=== PATIENT | female | born 1995 | race Caucasian/White ===

== ENCOUNTER 2020-06-27 10:28 | Emergency (ER) | payer OTHER ==
--- OUTSIDE RECORDS SUMMARY | 2020-06-27 11:18 | XMS REPORT | Continuity of Care Document ---
:1995 Author Organization [facility] t Address [address] [place] [address] Care Team Providers Name Role Phone De Valdivia Attending Clinician Doctor Unassigned, Name Attending Clinician Unavailable Payers Payer Name Policy Type Policy Number Effective Date Expiration Date S ource Problems This patient has no known problems. Allergies, Adverse Reactions, Alerts Allergy Allergy Status Severity Reaction(s) Onset Inactive Treating Comm ents Source Name Type Date Date Clinician No Known DA Active U 2019- [facility] [place] FA Active NM [facility] oil 6[facility]17 [facility] [place] Medications This patient has no known medications. Procedures This patient has no known procedures. Encounters Start End Encounter Admission Attending Care Care Encounter Source Date/Time Date/Time Type Type Clinicians Facility Department ID 2019-12-12 2019-12-12 Letter TORITO Latif [id number] 00:00:00 00:00:00 (Out) Rita Kc WEALTH MANAGEMENT DIRECTOR [id number] REGIONAL [id number] MATERNAL [phone] & CHILD [address] [place] [address] 2019-11-05 2019-11-05 Orders Doctor JIMENEZ [id number] 00:00:00 00:00:00 Only Unassigned, AYLIN [id number] [facility] [place] [id number] 2019-11-02 2019-11-02 Telephone Salomon NVJOSE [id number] 00:00:00 00:00:00 Rita Kc WEALTH MANAGEMENT DIRECTOR [id number] [facility] [id number] MATERNAL [phone] & CHILD [address] [place] [address] Results Test Description Test Time Test Comments Results Result [facility] e Comments FALLOPIAN 2020-06-24 TUBE,STERILIZATION 16:03:00 --------RUN DATE: 06/24/20 [facility] PAGE 1 RUN TIME: 1731 Specimen Inquiry RUN USER: INTERFACE --------PATIENT: GALEN VIERA LOC: ClarePPUE U #: [id number] AGE/SX: 24/F ROOM: [facility] RE06/23/20REG DR: Heather Serrano MD : [birth year] BED: A DIS: STATUS: ADM IN TLOC: -------- SPEC #: [id number] RECD: 06/23/20 STATUS: LINCOLN ALTAMIRANO #: [id number] EDILBERTO: 06/23/20- SUBM DR: Heather Serrano MD ENTERED: 06/23/20 SP TYPE: BRENDEN RODRIGUEZ DR: ORDERED: LEVEL II SURGIC/2 CODES: [id number] - FALLOPIAN TUBE PROCEDURES: LEVEL II SURGIC (Incomplete) TISSUES: FALLOPIAN TUBE, NOS - BILATERAL FALLOPIAN TUBES CLINICAL HISTORY 24 year old, . 39.2 weeks, repeat section (kr) FINAL DIAGNOSIS Right fallopian tube, ligation: - completely transected unremarkable fallopian tube Left fallopian tube, ligation: - completely transected unremarkable fallopian tube CPT code(s): 45655 x2 [place] [employer] ssd/.wpd GROSS DESCRIPTION ANATOMIC SOURCE OF TISSUE (per Requisition): 1. Right fallopian tube 2. Left fallopian tube Each specimen is labeled with the patient's name and medical record number. Specimen #1 is designated "right fallopian tube" and consists of a 2 x 0.6 cm blair-pink tubular tissue. No fimbriae are identified. Sectioning reveals a pinpoint lumen. A dealer compliance representative section is submitted in A1. Specimen #2 is designated "left fallopian tube" and consists of a 1 x 0.6 cm blair-pink tubular tissue. No fimbriae are identified. Sectioning reveals a pinpoint lumen. A dealer compliance representative section is submitted in B1. daniel/shaun 06/23/20 CONTINUED ON NEXT PAGE --------RUN DATE: 06/24/20 [facility] PAGE 2 RUN TIME: 1730 Specimen Inquiry RUN USER: INTERFACE --------SPEC #: [id number] PATIENT: GALEN VIERA #[id number] (Continued) -------- Signed Heaven Swann MD 06/24/20 1603 -------- END OF REPORT CBC W/AUTO DIFF 2020-06-24 07:08:00 Test Item Value Reference Range Interpretation Comme nts WHITE BLOOD CELL (test code = WBC) 8.9 K/mm3 6.6-12.1 N RED BLOOD CELL (test code = RBC) 2.95 M/mm3 3.45-5.01 L HEMOGLOBIN (test code = HGB) 9.6 g/dL 10.7-13.9 L HEMATOCRIT (test code = HCT) 29.5 % 32.1-42.1 L MEAN CELL VOLUME (test code = MCV) 100 fL 84.1-94.8 H MEAN CELL HGB (test code = MCH) 32.5 pg 27-35 N MEAN CELL HGB CONCETRATION (test code = MCHC) 32.5 gm/dL 32.2-34. 1 N RED CELL DISTRIBUTION WIDTH (test code = RDW) 13.2 % 12.4-16. 5 N PLATELET COUNT (test code = PLT) 171 K/mm3 133-385 N MEAN PLATELET VOLUME (test code = MPV) 11.0 fl 9.1-12.7 N NEUTROPHIL % (test code = NT%) 77.8 % 56.5-79.4 N LYMPHOCYTE % (test code = LY%) 11.2 % 14.3-34.3 L MONOCYTE % (test code = MO%) 9.8 % 5.1-10.4 N EOSINOPHIL % (test code = EO%) 0.7 % 0.1-3.0 N BASOPHIL % (test code = BA%) 0.2 % 0.1-1.0 N NEUTROPHIL # (test code = NT#) 7.0 K/mm3 LYMPHOCYTE # (test code = LY#) 1.0 K/mm3 MONOCYTE # (test code = MO#) 0.9 K/mm3 EOSINOPHIL # (test code = EO#) 0.06 K/mm3 BASOPHIL # (test code = BA#) 0.0 K/mm3 RBC MORPHOLOGY REQUIRED (test code = RBCM) NORMAL NORMAL PLATELET MORPHOLOGY REQUIRED (test code = PLTMR) NORMAL DMITRY L COVID 19 Asymptomatic IH [id number] 15:19:00 Test Item Value Reference Range Interpretation Comments COVID 19 NEGATIVE NEGATIVE This test has b een Asymptomatic IH AG authorize d only for the (test code = detection ofpro teins from COVNONPUIAG) SARS-CoV-2, not for any other viruses orpathogens. N egative results should be treated as presumptive andconfirmed wi th a molecular assay , if necessary for patientmanageme nt. Negative result s do not rule out COVID- 19 andshould not b e used as the sole basis for treatment orpat ient management deci sions, including infec tion controldecision s. Negative result s should be considered i n thecontext of a patient's recent exposure s, history and thepresence of clinical signs and symptoms consis tent withCOVID-19. T his test has not been FD A cleared or approved; th e test hasbeen authori zed by FDA under an Emerge ncy Use Authorization(E UA) for use by laborato charles certified under the CLIA thatmeet the re quirements to perform mode rate, high or waivedcomple xity tests. This kristina t is authorized for use at thePoint of Car e (POC), i.e., in patien t care settingsoperati ng under a CLIA Certificat e of Waiver, Certifi monet ofCompliance, o r Certificate of Accreditation. This test is only authori zed for the duration of thedeclaration that circumstances e xist justifying theauthorizatio n of emergency use o f in vitro diagnostic test sfor detection and/o r diagnosis of CO VID-19 under Xpdseny27 4(b)(1) of the Act, 21 U.S .C. 360bbb-3(b)(1), unless theauthorizatio n is terminated or r evoked sooner. AG HEPATITIS B [id number] 14:55:00 Test Item Value Reference Range Interpretation Comments AG HEPATITIS B SURFACE (test code NONREACTIVE NONREACTIVE = HBSAG) IS CONSENT FORM SIGNED FOR HIV TESTING? YAB HEPATITIS C [id number] 14:55:00 Test Item Value Reference Range Interpretation Comments AB HEPATITIS C (test code = NONREACTIVE NONREACTIVE HCVAB) SIGNAL TO CUTOFF (test code = 0.06 <0.80 N CUTOFF) IS CONSENT FORM SIGNED FOR HIV TESTING? YAB [id number] 14:55:00 Test Item Value Reference Range Interpretation Comments AB TREPONEMA (test code = TREPAB) NONREACTIVE NONREACTIVE IS CONSENT FORM SIGNED FOR HIV TESTING? YAB HIV 1 14:55:00 Test Item Value Reference Range Interpretation Comments AB HIV 1 2 (test NONREACTIVE NONREACTIVE Done by Louis Mixon code = OCY80MF) 4th Gen HIV Ag/Ab Combo Screen IS CONSENT FORM SIGNED FOR HIV TESTING? YAG HEPATITIS B [id number] 14:21:00 Test Item Value Reference Range Interpretation Comments AG HEPATITIS B SURFACE (test code NONREACTIVE NONREACTIVE = HBSAG) IS CONSENT FORM SIGNED FOR HIV TESTING? YAB HEPATITIS C [id number] 14:21:00 Test Item Value Reference Range Interpretation Comments AB HEPATITIS C (test code = HCVAB) NONREACTIVE SIGNAL TO CUTOFF (test code = CUTOFF) <0.80 IS CONSENT FORM SIGNED FOR HIV TESTING? YAB [id number] 14:21:00 Test Item Value Reference Range Interpretation Comments AB TREPONEMA (test code = TREPAB) NONREACTIVE NONREACTIVE IS CONSENT FORM SIGNED FOR HIV TESTING? YAB HIV 1 14:21:00 Test Item Value Reference Range Interpretation Comments AB HIV 1 2 (test code = RSG21YH) NONREACTIVE IS CONSENT FORM SIGNED FOR HIV TESTING? YURINALYSIS W/O [id number] 13:43:00 Test Item Value Reference Range Interpretation Comments UA GLUCOSE DIPSTICK (test code = NEGATIVE NEGATIVE DGLUU) UA KETONE DIPSTICK (test code = NEGATIVE NEGATIVE KETU) UA PROTEIN DIPSTICK (test code = NEGATIVE NEGATIVE PROU) IS NURSE PERFORMING TEST? NCBC W/AUTO [id number] 13:41:00 Test Item Value Reference Range Interpretation Comments WHITE BLOOD CELL (test code = WBC) 7.8 K/mm3 6.6-12.1 N RED BLOOD CELL (test code = RBC) 3.32 M/mm3 3.45-5.01 L HEMOGLOBIN (test code = HGB) 10.7 g/dL 10.7-13.9 N HEMATOCRIT (test code = HCT) 32.5 % 32.1-42.1 N MEAN CELL VOLUME (test code = MCV) 98 fL 84.1-94.8 H MEAN CELL HGB (test code = MCH) 32.2 pg 27-35 N MEAN CELL HGB CONCETRATION (test 32.9 gm/dL 32.2-34.1 N code = MCHC) RED CELL DISTRIBUTION WIDTH (test 12.8 % 12.4-16.5 N code = RDW) PLATELET COUNT (test code = PLT) 200 K/mm3 133-385 N MEAN PLATELET VOLUME (test code = 10.7 fl 9.1-12.7 N MPV) NEUTROPHIL % (test code = NT%) 70.5 % 56.5-79.4 N LYMPHOCYTE % (test code = LY%) 17.2 % 14.3-34.3 N MONOCYTE % (test code = MO%) 11.0 % 5.1-10.4 H EOSINOPHIL % (test code = EO%) 0.6 % 0.1-3.0 N BASOPHIL % (test code = BA%) 0.3 % 0.1-1.0 N NEUTROPHIL # (test code = NT#) 5.5 K/mm3 LYMPHOCYTE # (test code = LY#) 1.4 K/mm3 MONOCYTE # (test code = MO#) 0.9 K/mm3 EOSINOPHIL # (test code = EO#) 0.05 K/mm3 BASOPHIL # (test code = BA#) 0.0 K/mm3 RBC MORPHOLOGY REQUIRED (test code NORMAL NORMAL = RBCM) PLATELET MORPHOLOGY REQUIRED (test NORMAL NORMAL code = PLTMR) - US FET BIO PH NH W/O [id number] 23:41:00 Patient Name: GALEN VIERA Unit No: [id number] EXAMS: CPT CODE: [id number] US FET BIO PH NH W/O NST 38947 Limited obstetrical ultrasound dated 06/08/2020. HISTORY: 37 week . Decreased movement. A limited transabdominal obstetrical ultrasound was performed reveals presence of a single intrauterine in cephalic position. cardiac activity is documented with a heart rate of 144 bpm. The placenta is posteriorly positioned and demonstrates grade 2 echotexture. There is no evidence of placenta previa. Amniotic fluid volume appears within normal limits with a measured ESTELLA of 12.7. The cervix appears closed with a measured cervical length of 3.7 cm. measurements were not obtained. A anatomic survey was not performed. The fetus meets the biophysical profile criteria for breathing movement, gross body movement, tone and amniotic fluid volume giving a biophysical profile score of 8/8. IMPRESSION: 1. Single living intrauterine in cephalic position. 2. biophysical profile score of 8/8. SL: 131 at 2341 Reported and signed by: Gilberto Chen MD CC: Kayy Martin MD Technologist: TOR SRIVASTAVA RDMS, RVT Probe: Trnscrbd D/ (2601) t.DMM Orig Print D/T: S: 06/08/2020 (9385) [facility] NAME: GALEN VIERA Radiology Department PHYS: Kayy Hudson MD [address] : 1995 AGE: 24 SEX: F [place] [address] LOC: ClareDARIA PHONE #: [phone] EXAM DATE: 06/08/2020 STATUS: REG ER FAX #: [phone] RAD NO: Page 1 Signed Report Patient Name: GALEN VIERA Unit No: [id number] EXAMS: CPT CODE: [id number] US FET BIO PH NH W/O NST 07251 <Continued> [facility] NAME: GALEN VIERA Radiology Department PHYS: Kayy Hudson MD [address] : 1995 AGE: 24 SEX: F [place] [address] LOC: ClareDARIA PHONE #: [phone] EXAM DATE: 06/08/2020 STATUS: REG ER FAX #: [phone] RAD NO: Page 2 Signed Report- US FLW [id number] 15:32:00 Patient Name: GALEN VIERA Unit No: [id number] EXAMS: [place]: [id number] [place] [address] [facility] [address] [place], [place] [address] OBSTETRICAL ULTRASOUND REPORT Pat. Name: GALEN VIERA Pat. No: [id number] Study Date: 04/24/2020 2:22pm , Age: 8 1995, 24 Pregnancies: 5, Para 3 LMP: 09/22/2019 GA by LMP: 30w5d GA by 1st: 30w5d GA by US: 29w3d GA Selected: 30w5d (LMP) LAINEY: 06/28/2020 Referring MD: HEATHER SERRANO Operations Manager/Coordinator: Candi Barfield RDMS CPT4: USPREGFU MEASUREMENTS AGE GROWTH EVALUATION Measurement GA Range Srce %for GA Ratios ----- ---- ------- BPD 7.4 cm 30w0d (44c4y-28e1u) Hadl BPD 27% FL/BPD 0.77 (0.71 - 0.87) HC 27.5 cm 29w5d (71b2h-58c9e) Hadl HC 30% FL/AC 0.23 (0.20 - 0.24) APD 7.4 cm APD HC/AC 1.09 (0.97 - 1.16) TAD 8.6 cm TAD CI 0.79 (0.70 - 0.86) AC 25.2 cm 29w3d (25c9m-88a3b) Hadl AC 23% FL 5.7 cm 29w4d (31d0y-88b3s) Hadl FL 26% HL 5.0 cm 29w2d (95b5l-72p7c) [place] HL 26% GAfor sonogram 29w3d (77f3s-62k0u) Weight Estimate: based on (BPD,HC,AC,FL) Hadlock Weight: 1430 gm (0467-8668) Hadlo : 3lbs, 2oz Normal: 1579 gm (5345-9070) Brenn Wt%37% for 30.7 wks Cervical Length: 4.1 cm Heart Rate: 135 bpm Amniotic Fluid Index: 15.4cm (08.9-23.7) Q1: 4.4cm Q2: 4.3cm Q3: 3.2cm Q4: 3.5cm CLINICAL SUMMARY Type of Gestation: Toscano Intrauterine in vertex presentation. size is appropriate for gestational age. growth: Consistent with normal growth motion and organs seen: heart motion seen body and limb movements observed tone noted Placental location: Posterior Placental maturity : Grade 1 There is no evidence of placenta previa. Amniotic fluid volume is normal. [facility] NAME: GALEN VIERA Radiology Department PHYS: Heather Loyd MD [address] : 1995 AGE: 24 SEX: F [place], [place] [address] LOC: Andrea.RAD PHONE #: [phone] EXAM DATE: 04/24/2020 STATUS: REG CLI FAX #: [phone] RAD NO: Page 1 Signed Report (CONTINUED) Patient Name: GALEN VIERA Unit No: [id number] EXAMS: CPT CODE: [id number] [place] [address] <Continued> Uterus and adnexa: No significant abnormality is seen. Thank you for allowing us to participate in the care of this patient. Pa Capone M.D. Electronic Signature 04/24/2020 03:32pm at 1532 Reported and signed by: Pa Capone MD CC: Technologist: Candi Barfield RDMS Probe: Trnscrbd D/ (1532) LisaS Orig Print D/T: S: 04/24/2020 (1532) [facility] NAME: GALEN VIERA Radiology Department PHYS: Heather Loyd MD [address] : 1995 AGE: 24 SEX: [place] [address] LOC: ClareRAD PHONE #: [phone] EXAM DATE: 04/24/2020 STATUS: REG CLI FAX #: [phone] RAD NO: Page 2 Signed Report Patient Name: GALEN VIERA Unit No: [id number] EXAMS: CPT CODE: [id number] [place] [address] <Continued> [facility] NAME: GALEN VIERA Radiology Department PHYS: Heather Loyd MD [address] : 1995 AGE: 24 SEX: [place] [address] LOC: ClareRAD PHONE #: [phone] EXAM DATE: 04/24/2020 STATUS: REG CLI FAX #: [phone] RAD NO: Page 3 Signed Report- US PREG AFTER [id number] 14:10:00 Patient Name: GALEN VIERA Unit No: [id number] EXAMS: CPT CODE: [id number] US PREG AFTER TRI [address] [facility] [address] [place], [place] [address] OBSTETRICAL ULTRASOUND REPORT Pat. Name: GALEN VIERA Pat. No: [id number] Study Date: 02/14/2020 12:59pm , Age: 8 1995, 24 Pregnancies: 5, Para 3 LMP: 09/22/2019 GA by LMP: 20w5d GA by US: 20w0d GA Selected: 20w5d (From Known E) LAINEY: 06/28/2020 Referring MD: HEATHER SERRANO Operations Manager/Coordinator: Amy Valdivia RDMS CPT4: [id number] Admitting MD: HEATHER SERRANO Hist/Ind: ANATOMY SCAN 1 MEASUREMENTS AGE GROWTH EVALUATION Measurement GA Range Srce %for GA Ratios ----- ---- ------- BPD 4.4 cm 19w2d (00c0g-54r2r) Hadl BPD <05 FL/BPD 0.79 HC 17.0 cm 19w4d (50d9j-94l7q) Hadl HC 16% FL/AC 0.23 APD 5.1 cm APD HC/AC 1.11 (1.06 - 1.24) TAD 4.6 cm TAD CI 0.75 (0.70 - 0.86) AC 15.3 cm 20w1d (18w1d- 22w1d) Hadl AC 38% FL 3.5 cm 20w5d (90l1r-10f8m) Hadl FL 49% HL 3.2 cm 20w5d (75w7c-46w3u) [place] HL 50% GA for sonogram 20w0d (64w4r-40z8b) Weight Estimate: based on (BPD,HC,AC,FL) [place]lock Weight: 362 gm (309-415) [place]lock : 0lbs, 12oz Cervical Length: 4.6 cm Heart Rate: 136 bpm MATERNAL ANATOMY Ovaries LxHxW (cm) Right 2.7 x 1.7 x 1.9 Vol: 4.6cc ------- Ovarian Cysts LxHxW (cm) R1: 2.0 x1.1 x 1.5 CLINICAL SUMMARY Type of Gestation: Toscano Intrauterine in variable presentation. size is appropriate for gestationalage. motion and organs seen: heart motion seen Four chamber heart observed Left ventricular outflow tract (LVOT) seen [facility] Rad[facility] Department PHYS: Heather Loyd MD [address] : 1995 AGE: 24 SEX: [place] [address] LOC: ClareBINA PHONE #: [phone] EXAM DATE: 02/14/2020 STATUS: REG CLI FAX #: [phone] RAD NO: Page 1 Signed Report (CONTINUED) Patient Name: GALEN VIERA Unit No: [id number] EXAMS: CPT CODE: [id number] US PREG AFTER 1ST TRI 06696 <Continued> Right ventricular outflow tract (RVOT) seen Regular cardiac rhythm observed Normal intracranial anatomy seen Umbilical cord insertion in fetus seen stomach, Renal Fossa, Bladder and Spine seen Three vessel umbilical cord noted abnormalities observed: None seen at this exam Placental location: Posterior Placental maturity : Grade 1 There is no evidence of placenta previa. Amniotic fluid volume is normal. Uterus and adnexa: No significant abnormality is seen. Farheen Jarrett M.D. Electronic Signature 02/14/2020 02:10pm at 1410 Reported and signed by: Farheen Jarrett MD CC: Haether Serrano MD Technologist: Amy Valdivia RDMS Probe: Trnscrbd D/ (1410) t.SDR.NMG Orig Print D/T: S: 02/14/2020 (1410) [facility] NAME: GALEN VIERA Radiology Department PHYS: Heather Loyd MD [address] : 1995 AGE: 24 SEX: [place] [address] LOC: Andrea.RAD PHONE #: [phone] EXAM DATE: 02/14/2020 STATUS: REG CLI FAX #: [phone] RAD NO: Page 2 Signed Report Patient Name: GALEN VIERA Unit No: [id number] EXAMS: CPT CODE: [id number] US PREG AFTER 1ST TRI 84412 <Continued> [facility] NAME: AYLINGALEN Radiology Department PHYS:Heatehr Loyd MD [address] : 1995 AGE: 24 SEX: [place] [address] LOC: ClareRAD PHONE #: [phone] EXAM DATE: 02/14/2020 STATUS: REG CLI FAX #: [phone] RAD NO: Page 3 Signed Report
--- NOTE | 2020-06-27 12:24 | RAD REPORT ---
EXAM DESCRIPTION: Tammy Single View06/27/2020 12:11 pm CLINICAL HISTORY: Shortness of breath COMPARISON: none FINDINGS: The lungs appear clear of acute infiltrate. The heart is normal size IMPRESSION: No acute abnormalities displayed
[2020-06-27 12:25] LABS: Absolute Lymphocytes (CBC) 1.3 K/uL (0.7-4.9); Basophils % 0.4 % (0-1.3); Hematocrit 29.8 % (36.0-45.0); Lymphocytes % 16.7 % (15.3-44.8); MPV 8.7 fL (7.6-11.3); RBC Red Blood Cell Count 3.14 M/uL (3.86-4.86)
[2020-06-27 12:26] LABS: Protime INR 0.93
[2020-06-27 12:41] LABS: ALT/SGPT 57 U/L (12-78); AST/SGOT 48 U/L (15-37); Albumin 2.6 g/dL (3.4-5.0); Alkaline Phosphatase 114 U/L (45-117); BUN Blood Urea Nitrogen 12 mg/dL (7-18); Bicarbonate 29 mmol/L (21-32); Bilirubin Direct < 0.1 mg/dL (0-0.2); Bilirubin Total 0.2 mg/dL (0.2-1.0); Glucose Level 85 mg/dL (74-106); Magnesium 1.7 mg/dL (1.8-2.4); NT PRO-BNP 507 pg/mL (<125); Potassium 3.4 mmol/L (3.5-5.1); Sodium Level 146 mmol/L (136-145); Troponin (Emerg Dept Use Only) < 0.02 ng/mL (0.0-0.045)
[2020-06-27] MEDS ORDERED: NA CHLORIDE 0.9% 1,000 ML ONE (13:12)
--- NOTE | 2020-06-27 14:12 | RAD REPORT ---
EXAM DESCRIPTION: US - Abdomen Exam Limited - 06/27/2020 2:00 pm CLINICAL HISTORY: ABD PAIN COMPARISON: Abdomen Exam Limited dated 09/23/2017 FINDINGS: The gallbladder demonstrates small polyps versus adherent stones. No pericholecystic fluid or gallbladder wall thickening. The common bile duct is normal measuring 3 mm. The liver demonstrates no findings of intrahepatic biliary dilatation. Trace free fluid. IMPRESSION: Small gallbladder polyps versus adherent stones. No evidence of acute cholecystitis.
--- NOTE | 2020-06-27 14:17 | RAD REPORT ---
EXAM DESCRIPTION: CT - Chest For Pe Angio - 06/27/2020 2:10 pm CLINICAL HISTORY: Chest pain. Chest pain;Dyspnea COMPARISON: No comparisons TECHNIQUE: CT angiogram of the pulmonary arteries was performed with MIP. All CT scans are performed using dose optimization technique as appropriate and may include automated exposure control or mA/KV adjustment according to patient size. FINDINGS: No evidence of pulmonary thromboembolism. No acute aortic finding demonstrated. The lungs are clear. Small bilateral pleural effusions. No concerning bony finding. IMPRESSION: No evidence of pulmonary thromboembolism. Small bilateral pleural effusions.
--- NOTE | 2020-06-27 14:36 | EDPHYS ---
Physician Documentation [facility] Name: Antelmo Townsend Age: 24 yrs Sex: Female : 1995 Arrival Date: 06/27/2020 Time: 10:32 Bed 15 Private MD: ED Physician Ge Walker HPI: 06/27 14:34 This 24 yrs old Female presents to ER via Ambulatory with complaints of kb Breathing Difficulty, Headache, High Blood Sugar. 14:34 The patient has shortness of breath at rest. Onset: The symptoms/episode began/occurred kb yesterday. Duration: The symptoms are continuous. The patient's shortness of breath is aggravated by supine position, is alleviated by nothing. Associated signs and symptoms: Pertinent positives: chest pain, Pertinent negatives: non-productive cough, productive cough, diaphoresis, dizziness, fever, hemoptysis, loss of consciousness, nausea, numbness in extremities, visual changes, vomiting. Severity of symptoms: At their worst the symptoms were moderate in the emergency department the symptoms are unchanged. The patient has not experienced similar symptoms in the past. The patient has been recently seen by a physician: on Tuesday, discharged from [facility] yesterday. 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 - Social history:: Smoking status: Patient denies any tobacco usage or history of. ROS: 14:30 Constitutional: Negative for fever, chills, and weight loss, Back: Negative for injury kb and pain, MS/Extremity: Negative for injury and deformity, Skin: Negative for injury, rash, and discoloration, Neuro: Negative for headache, weakness, numbness, tingling, and seizure. 14:30 Cardiovascular: Positive for chest pain, Negative for edema, orthopnea, palpitations, paroxysmal nocturnal dyspnea. 14:30 Respiratory: Positive for orthopnea, shortness of breath, Negative for cough, dyspnea on exertion, hemoptysis, pleurisy, sputum production, wheezing. Exam: 12:27 Constitutional: This is a well developed, well nourished patient who is awake, alert, kb and in no acute distress. Head/Face: Normocephalic, atraumatic. Chest/axilla: Normal chest wall appearance and motion. Nontender with no deformity. No lesions are appreciated. Cardiovascular: Regular rate and rhythm with a normal S1 and S2. No gallops, murmurs, or rubs. Normal PMI, no JVD. No pulse deficits. Respiratory: Lungs have equal breath sounds bilaterally, clear to auscultation and percussion. No rales, rhonchi or wheezes noted. No increased work of breathing, no retractions or nasal flaring. Abdomen/GI: Soft, non-tender, with normal bowel sounds. No distension or tympany. No guarding or rebound. No evidence of tenderness throughout. Skin: Warm, dry with normal turgor. Normal color with no rashes, no lesions, and no evidence of cellulitis. MS/ Extremity: Pulses equal, no cyanosis. Neurovascular intact. Full, normal range of motion. Neuro: Awake and alert, GCS 15, oriented to person, place, time, and situation. Cranial nerves II-XII grossly intact. Motor strength 5/5 in all extremities. Sensory grossly intact. Cerebellar exam normal. Normal gait. 12:27 ECG was reviewed by the Attending Physician. Vital Signs: 11:05 BP 127 / 87; Pulse 67; Resp 14; Temp 99.4(TE); Pulse Ox 100% on R/A; Height 5 ft. 3 in. ss (160.02 cm); 13:03 BP 146 / 82; Pulse 56; Resp 16; Pulse Ox 99% on R/A; iw MDM: 11:10 Patient medically screened. kb 13:35 ED course: Pt began having pain to epigastric area and RUQ. US ordered. kb 14:33 Data reviewed: vital signs, nurses notes. Data interpreted: Pulse oximetry: on room air kb is 99 %. Interpretation: normal. Counseling: I had a detailed discussion with the patient and/or guardian regarding: the historical points, exam findings, and any diagnostic results supporting the discharge/admit diagnosis, lab results, radiology results, the need for outpatient follow up, a family practitioner, to return to the emergency department if symptoms worsen or persist or if there are any questions or concerns that arise at home. 06/27 11:11 Order name: Basic Metabolic Panel; Complete Time: 12:45 kb 06/27 11:11 Order name: CBC with Diff; Complete Time: 12:35 kb 06/27 11:11 Order name: LFT's; Complete Time: 12:45 kb 06/27 11:11 Order name: Magnesium; Complete Time: 12:45 kb 06/27 11:11 Order name: NT PRO-BNP; Complete Time: 12:45 kb 06/27 11:11 Order name: PT-INR; Complete Time: 13:21 kb 06/27 11:11 Order name: Troponin (emerg Dept Use Only); Complete Time: 12:45 kb 06/27 11:11 Order name: XRAY Chest (1 view); Complete Time: 12:26 kb 06/27 12:58 Order name: D-Dimer; Complete Time: 13:21 EDMS 06/27 13:20 Order name: CT Chest For PE Angio; Complete Time: 14:27 kb 06/27 13:35 Order name: US Abdomen Limited; Complete Time: 14:15 kb 06/27 11:11 Order name: EKG; Complete Time: 11:12 kb 06/27 11:11 Order name: Cardiac monitoring; Complete Time: 12:13 kb 06/27 11:11 Order name: EKG - Nurse/Tech; Complete Time: 11:54 kb 06/27 11:11 Order name: IV Saline Lock; Complete Time: 12:13 kb 06/27 11:11 Order name: Labs collected and sent; Complete Time: 12:13 kb 06/27 11:11 Order name: O2 Per Protocol; Complete Time: 12:13 kb 06/27 11:11 Order name: O2 Sat Monitoring; Complete Time: 12:13 kb EC:27 Rate is 56 beats/min. Rhythm is regular. QRS [place] is Normal. IN interval is normal at kb 194 msec. QRS interval is normal at 78 msec. QT interval is normal at 406 msec. Administered Medications: 13:02 Drug: NS 0.9% 1000 ml Route: IV; Rate: 1000 ml; Site: right antecubital; iw 14:43 Drug: Ibuprofen 800 mg Route: PO; iw 14:44 Not Given (Patient Refused): morphine 4 mg IVP once; RASS on ADMIN: Combtv4, Very iw Agttd3, Agttd2, Rstlss1, AlertClm0, Drwsy-1, Lt Sdtn-2, Mod Sdtn-3, Dp Sdtn-4, UnArsble-5 14:44 Not Given (Patient Refused): Zofran (Ondansetron) 4 mg IVP once; over 2 minutes iw Disposition: 06/28 13:25 Co-signature as Attending Physician, Ge Walker MD I agree with the assessment and kdr plan of care. Disposition: 06/27/20 14:35 Discharged to Home. Impression: Dyspnea, Chest pain, unspecified. - Condition is Stable. - Discharge Instructions: Shortness of Breath, [id number], Nonspecific Chest Pain, [id number]. - Medication Reconciliation Form, Thank You Letter, Antibiotic Education, Prescription Opioid Use form. - Follow up: Emergency Department; When: As needed; Reason: Worsening of condition. Follow up: Private Physician; When: 2 - 3 days; Reason: Recheck today's complaints, Continuance of care, Re-evaluation by your physician. Signatures: Dispatcher [employer] EDWA Kary Cuadra, KATJA-C APPLICATIONS MANAGER-Ckb Ge Walker MD MD [facility] Yvonne Bond RN RN iw Smirch, Shelby, RN RN ss Corrections: (The following items were deleted from the chart) 06/27 14:34 14:30 Respiratory: Positive for dyspnea on exertion, shortness of breath, Negative for kb cough, hemoptysis, orthopnea, pleurisy, sputum production, wheezing, kb 15:09 14:35 06/27/2020 14:35 Discharged to Home. Impression: Dyspnea; Chest pain, iw unspecified. Condition is Stable. Forms are Medication Reconciliation Form, Thank You Letter, Antibiotic Education, Prescription Opioid Use. Follow up: Emergency Department; When: As needed; Reason: Worsening of condition. Follow up: Private Physician; When: 2 - 3 days; Reason: Recheck today's complaints, Continuance of care, Re-evaluation by your physician. kb
--- NOTE | 2020-06-27 14:36 | ER ---
Nurse's Notes [facility] Name: Antelmo Townsend Age: 24 yrs Sex: Female : 1995 Arrival Date: 06/27/2020 Time: 10:32 Bed 15 Private MD: Diagnosis: Dyspnea;Chest pain, unspecified Presentation: 06/27 11:05 Chief complaint: Patient states: Had a 3 days ago. Was discharged yesterday. ss Pt c/o "heavy heart beat and shortness of breath that is worse when laying down.". Coronavirus screen: shortness of breath. Ebola Screen: Patient denies exposure to infectious person. Patient denies travel to an Ebola-affected area in the 21 days before illness onset. Initial Sepsis Screen: Does the patient meet any 2 criteria? No. Patient's initial sepsis screen is negative. Does the patient have a suspected source of infection? No. Patient's initial sepsis screen is negative. Risk Assessment: Do you want to hurt yourself or someone else? Patient reports no desire to harm self or others. Onset of symptoms was June 26, 2020. 11:05 Method Of Arrival: Ambulatory ss 11:05 Acuity: MARK 3 ss Triage Assessment: 13:05 Respiratory: the patient has mild shortness of breath. iw 13:05 Respiratory: Reports pain with respiration Onset: The symptoms/episode began/occurred. iw 15:09 General: Appears in no apparent distress. Behavior is calm. 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 - Social history:: Smoking status: Patient denies any tobacco usage or history of. Screenin:02 Abuse screen: Denies threats or abuse. Denies injuries from another. Nutritional iw screening: No deficits noted. Tuberculosis screening: No symptoms or risk factors identified. Fall Risk IV access (20 points). Assessment: 12:08 General: Appears in no apparent distress. Behavior is calm, cooperative. Pain: iw Complains of pain in chest. Neuro: Level of Consciousness is awake, alert, obeys commands, Oriented to person, place, time, situation, Moves all extremities. Full function. Cardiovascular: Patient's skin is warm and dry. Respiratory: Respiratory effort is even, unlabored. Derm: Skin is intact, is healthy with good turgor. Musculoskeletal: Range of motion: intact in all extremities. 13:02 Reassessment: Patient appears in no apparent distress at this time. Patient and/or iw family updated on plan of care and expected duration. Pain level reassessed. Patient is alert, oriented x 3, equal unlabored respirations, skin warm/dry/pink. 15:09 Respiratory: Airway is patent Respiratory effort is Breath sounds are clear bilaterally.iw 15:09 Cardiovascular: Rhythm is regular. iw Vital Signs: 11:05 BP 127 / 87; Pulse 67; Resp 14; Temp 99.4(TE); Pulse Ox 100% on R/A; Height 5 ft. 3 in. ss (160.02 cm); 13:03 BP 146 / 82; Pulse 56; Resp 16; Pulse Ox 99% on R/A; iw ED Course: 10:32 Patient arrived in ED. ag5 10:57 Ge Walker MD is Attending Physician. kdr 11:05 Kary Cuadra FNP-C is PHCP. kb 11:10 Triage completed. ss 11:11 Arm band placed on right wrist. ss 11:53 EKG done, by ED staff, reviewed by Kary RUBIO. 3 12:04 Yvonne Bond, RN is Primary Nurse. iw 12:08 Initial lab(s) drawn, by vt, sent to lab. Inserted saline lock: 20 gauge in right dh3 antecubital area, using aseptic technique. Blood collected. 12:12 XRAY Chest (1 view) In Process Unspecified. EDMS 13:05 Patient has correct armband on for positive identification. iw 14:01 US Abdomen Limited In Process Unspecified. EDMS 14:10 CT Chest For PE Angio In Process Unspecified. EDMS 15:08 No provider procedures requiring assistance completed. IV discontinued, intact, iw bleeding controlled, No redness/swelling at site. Pressure dressing applied. Administered Medications: 13:02 Drug: NS 0.9% 1000 ml Route: IV; Rate: 1000 ml; Site: right antecubital; iw 14:43 Drug: Ibuprofen 800 mg Route: PO; iw 14:44 Not Given (Patient Refused): morphine 4 mg IVP once; RASS on ADMIN: Combtv4, Very iw Agttd3, Agttd2, Rstlss1, AlertClm0, Drwsy-1, Lt Sdtn-2, Mod Sdtn-3, Dp Sdtn-4, UnArsble-5 14:44 Not Given (Patient Refused): Zofran (Ondansetron) 4 mg IVP once; over 2 minutes iw Outcome: 14:35 Discharge ordered by MD. cazares 15:08 Discharged to home ambulatory. iw 15:08 Condition: good 15:08 Discharge instructions given to patient, Instructed on discharge instructions, follow up and referral plans. Demonstrated understanding of instructions, follow-up care. 15:09 Patient left the ED. iw Signatures: Dispatcher [employer] EDMS Kary Cuadra, KATJA-C MDS COORDINATOR-CkGe Childers MD MD kdr Williams, Irene, RN RN Malena Carias RN RN Marii Charles formerly [facility] Dalia Gonzales [facility]
[2020-06-27] MEDS ORDERED: ONDANSETRON 4 MG/2 ML VIAL ONE (14:45)
[2020-06-27] MEDS ORDERED: MORPHINE 4 MG/ML SYR ONE (14:45)
[2020-06-27] MEDS ORDERED: IBUPROFEN 400 MG TAB ONE (14:52)
[2020-06-27 15:27] VITALS: TEMP 99.4
[2020-06-27 15:28] VITALS: BP 146/82; O2SAT 99
== END 2020-06-27 15:09 | disposition home or self-care (01) ==
LOC: ER 10:28
DX: R07.9 Chest pain, unspecified (principal)
CPT/HCPCS: 93005; 85025; 80048; 36415; 83735; 85610; 85379; 80076; 84484; 83880; 71275; 71045; 76705; 99284; Q9967; J7030; J2405

== ENCOUNTER 2022-05-16 01:34 | Emergency (ER) | payer OTHER ==
--- OUTSIDE RECORDS SUMMARY | 2022-05-16 01:37 | XMS REPORT | Continuity of Care Document ---
:1995 Author Organization [facility] t Address [address] [place] [address] Care Team Providers Name Role Phone Heather Serrano Attending Clinician Unavailable Jerald Mccollum Attending Clinician Unavailable Rita Valdivia Attending Clinician [phone] RITA LATIF Attending Clinician Unavailable Doctor Unassigned, [place] Attending Clinician Unavailable Heather Serrano Admitting Clinician Unavailable Payers Payer Name Policy Type Policy Number Effective Date Expiration Date S ource Problems Condition Condition Condition Status Onset Resolution Last Treating Co mments Source Name Details Category Date Date Treatment Clinician Date Yeast Yeast Disease Active 2020-0 Univers infection infection 2-21 ity of 00:00: [address] Supervisio Supervisio Disease Active 2020-0 U nivers n of n of 2-13 [place] [facility] Multiparit Multiparit Disease Active 2020-0 U nivers y y 2-13 ity of 00:00: [address] History of History of Disease Active 2020-0 Overview : Univers herpes herpes 2-13 Suppressi ity of genital[place] genitalis [place] [facility] Rubella Rubella Disease Active 2013-09 Univers non-immune non-immune 1-04 it y of status, status, 00:00: [place] antepartum antepartum 00 Me dical Branch History of History of Disease Active 2013-09 Overview : 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 examinatio examinatio Utility n n Generalize Generalize Disease Active U nivers d anxiety d anxiety 11-08 ity of disorder disorder 00:00: [place] 00 Medical Branch Allergies, Adverse Reactions, Alerts Allergy Allergy Status Severity Reaction(s) Onset Inactive Treating Comm ents Source Name Type Date Date Clinician No Known DA Active U [facility] 06-08 [facility] [place] No Known DA Active U [facility] 06-08 [facility] All[facility]ie 00:[facility]: [facility] [place] FA Active ND [facility] d oil 02-26 [facility] 00:[facility]: [facility] [place] FA Active ND MUNOZ NAUSEA [facility] d oil 02-26 [facility] 00:00: [facility] [place] NO KNOWN Drug Active Univers ALLERGIE Class ity of S [facility] Social History Social Habit Start Date Stop Date Quantity Comments Source ASSERTION 2019-10-06 [facility] 00:00:00 [facility] Alcohol intake 2019-10-25 2019-10-25 [facility] 00:00:00 00:00:00 [facility] Smoking Status Start Date Stop Date Source Never smoker [facility] Medications Ordered Filled Start Stop Current Ordering Indication Dosage Frequency Signature Comments Components Source Medication Medication Date Date Medication? Clinician (SIG) Name Name terconazole 2020- No [id number] 1{appli Insert 1 Univers 0.4 % 11-02 cator} Applicator ity o f vaginal 00:00: 05:59 into [place] cream 00 :00 vagina at Medical bedtime Branch for 3 days. terconazole 2020- No [id number] 1{appli Insert 1 Univers 0.4 % 11-02 cator} Applicator ity o f vaginal 00:00: 05:59 into [place] cream 00 :00 vagina at [facility] bedtime Branch for 3 days. 2013-09 Yes [id number] 1{tbl} Take 1 Tab Univers multivitami 0-07 by mouth ity of n ( [place] VITAMIN[place] 00 Medical tablet Branch 2013-09 Yes [id number] 1{tbl} Take 1 Tab Univers multivitami 0-07 by mouth ity of n ( [place] VIT[place]IN[place] 00 Medical tablet Branch 2013-09 Yes [id number] 1{tbl} Take 1 Tab Univers multivitami 0-07 by mouth ity of [place] VIT[place] 00 Medical tablet [place] 2013-09 Yes [id number] 1{tbl} Take 1 Tab Univers multivitami 0-07 by mouth ity of n ( [place] VIT[place]IN[place] 00 Medical tablet [place] 2013-09 Yes [id number] 1{tbl} Take 1 Tab Univers multivitami 0-07 by mouth ity of n ( [place] VIT[place] 00 Medical tablet Branch 2013-09 Yes [id number] 1{tbl} Take 1 Tab Univers multivitami 0-07 by mouth ity of n ( [place] VITAMIN[place] 00 Medical tablet [place] 2013-09 Yes [id number] 1{tbl} Take 1 Tab Univers multivitami 0-07 by mouth ity of n ( [place] VIT[place] 00 [facility] Immunizations Ordered Filled Immunization Date Status Comments [facility] e Immunization Name Name Tdap 2013-04-18 Completed University of 00:00:00 [facility] Tdap 2013-04-18 Completed University of 00:00:00 [facility] Tdap 2013-04-18 Completed University of 00:00:00 [facility] Tdap 2013-04-18 Completed University of 00:00:00 [facility] Tdap 2013-04-18 Completed University of 00:00:00 [facility] Tdap 2013-04-18 Completed University of 00:00:00 [facility] Tdap 2013-04-18 Completed University of 00:00:00 [facility] Varicella 2012-11-08 Completed University of (varivax)(chicken 00:00:00 [place] M edical pox) Branch Rubella 2012-11-08 Completed University of 00:00:00 [facility] Varicella 2012-11-08 Completed University of (varivax)(chicken 00:00:00 [place] M edical pox) Branch Rubella 2012-11-08 Completed University of 00:00:00 [facility] Varicella 2012-11-08 Completed University of (varivax)(chicken 00:00:00 [place] M edical pox) Branch Rubella 2012-11-08 Completed University of 00:00:00 [facility] Varicella 2012-11-08 Completed University of (varivax)(chicken 00:00:00 [place] M edical pox) Branch Rubella 2012-11-08 Completed University of 00:00:00 [facility] Varicella 2012-11-08 Completed University of (varivax)(chicken 00:00:00 [place] M edical pox) Branch Rubella 2012-11-08 Completed University of 00:00:00 [facility] Varicella 2012-11-08 Completed University of (varivax)(chicken 00:00:00 [place] M edical pox) Branch Rubella 2012-11-08 Completed University of 00:00:00 [facility] Varicella 2012-11-08 Completed University of (varivax)(chicken 00:00:00 [place] M edical pox) Branch Rubella 2012-11-08 Completed University of 00:00:00 [facility] Vital Signs Vital Name Observation Time Observation Value Comments Source Systolic blood 2019-10-25 21:31:00 103 mm[Hg] Univer sity of pressure [facility] Diastolic blood 2019-10-25 21:31:00 63 mm[Hg] Unive rsity of pressure [facility] Heart rate 2019-10-25 21:31:00 92 /min [facility] Body temperature 2019-10-25 21:31:00 37.33 Fifi [facility] Respiratory rate 2019-10-25 21:31:00 16 /min [facility] Body height 2019-10-25 21:31:00 160 cm [facility] Body weight 2019-10-25 21:31:00 52.674 kg [facility] BMI 2019-10-25 21:31:00 20.57 kg/m2 [facility] Procedures Procedure Date / Time Performing Clinician Source Performed [id number] 2020-06-23 [facility] [id number] 2020-06-23 00:00:00 [facility] AUTHORIZATION FOR 2019-11-05 06:01:00 Doctor Unassigned, No [facility] OF [facility] POCT URINALYSIS W/O 2019-10-25 21:40:00 Rita Latif Uni versity [facility] SPECIFIC GRAVITY [facility] POCT TEST 2019-10-25 21:33:00 Rita Latif Uni [facility] ASSIGNMENT OF BENEFITS 2019-10-25 20:39:24 Doctor Unassigned, No [facility] Encounters Start End Encounter Admission Attending Care Care Encounter Source Date/Time Date/Time Type Type Clinicians Facility Department ID 2020-06-23 Inpatient EL Serrano, [facility] LD [id number] [facility] 08:30:00 Heather [id number] [facility] [place] 2020-06-20 Inpatient Serrano, [facility] [id number] [facility] 08:30:00 Heather [facility] [place] 2020-06-08 Inpatient Serrano, [facility] DARIA [id number] [facility] 20:26:00 Heather [id number] [facility] [place] 2020-05-28 2020-05-28 Emergency EM Don-G [facility] DARIA [id number] [facility] 11:41:00 15:08:00 fred, [id number] [facility] [place] 2020-04-24 2020-04-24 Outpatient Serrano, [facility] RADI [id number] [facility] 14:00:00 14:00:00 Heather [id number] [facility] [place] 2020-02-14 2020-02-14 Outpatient Serrano, [facility] RADI [id number] [facility] 13:00:00 13:00:00 Heather [id number] [facility] [place] 2019-12-12 2019-12-12 Letter Salomon [facility] [id number] 00:00:00 00:00:00 (Out) 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 [id number] [facility] 09:45:00 09:45:00 RITA ity o f [facility] 2019-11-05 2019-11-05 Orders Doctor JIMENEZ [id number] 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 350.1.13.10 ity of REGIONAL 4.2.7.2.686 [place] as MATERNAL [id number] [facility] ical & CHILD [address] [place] [address] 2019-11-02 2019-11-02 [facility] [id number] 00:00:00 00:00:00 Rita C MIXER OPERATOR HELPER [employer] METAL 350.1.13.10 REGIONAL 4.2.7.2.686 MATERNAL [id number] & CHILD [address] 2019-10-25 2019-10-25 Initial Salomon [facility] [id number] Univers 14:59:01 16:20:39 Rita Kc MIXER OPERATOR HELPER HOT METAL 350.1.13.10 ity of Visit [facility] 42.7.2.686 [place] as MATERNAL [id number] Med ical & CHILD [address] [place] [address] 2019-10-25 2019-10-25 Outpatient R SALOMON [facility] [id number] [facility] 14:00:00 15:17:39 RITA long o f [facility] 2019-10-25 2019-10-25 Orders Doctor JIMENEZ [id number] Univers 00:00:00 00:00:00 Only Unassigned, AYLIN 350.1.13.10 ity of [place] [address]2.686 [place] as [phone] [address] Results Test Description Test Time Test Comments Results Result [facility] e Comments FALLOPIAN 2020-06-24 TUBE,STERILIZATION 16:03:00 --------RUN DATE: 06/24/20 [facility] PAGE 1 RUN TIME: 1731 Specimen Inquiry RUN USER: INTERFACE --------PATIENT: GALEN VIERA LOC: DEMARCUS U #: [id number] AGE/SX: 24/ ROOM: [facility] RE06/23/20REG DR: Heather Serrano MD : 93 BED: A DIS: STATUS: ADM IN TLOC: -------- SPEC #: [id number] RECD: 06/23/20 STATUS: LINCOLN ALTAMIRANO #: [id number] EDILBERTO: 06/23/20- SUBM DR: Heather Serrano MD ENTERED: 06/23/20 SP TYPE: FALLST MICHAEL DR: ORDERED: LEVEL II SURGIC/2 CODES: [id number] - FALLOPIAN TUBE PROCEDURES: LEVEL II SURGIC (Incomplete) TISSUES: FALLOPIAN TUBE, NOS - BILATERAL FALLOPIAN TUBES CLINICAL HISTORY 24 year old, . 39.2 weeks, repeat section (kr) FINAL DIAGNOSIS Right fallopian tube, ligation: - completely transected unremarkable fallopian tube Left fallopian tube, ligation: - completely transected unremarkable fallopian tube CPT code(s): 38519 x2 [facility]/.wpd GROSS DESCRIPTION ANATOMIC SOURCE OF TISSUE (per Requisition): 1. Right fallopian tube 2. Left fallopian tube Each specimen is labeled with the patient's name and medical record number. Specimen #1 is designated "right fallopian tube" and consists of a 2 x 0.6 cm blair-pink tubular tissue. No fimbriae are identified. Sectioning reveals a pinpoint lumen. A volunteer patient representative section is submitted in A1. Specimen #2 is designated "left fallopian tube" and consists of a 1 x 0.6 cm blair-pink tubular tissue. No fimbriae are identified. Sectioning reveals a pinpoint lumen. A volunteer patient representative section is submitted in B1. daniel/shaun 06/23/20 CONTINUED ON NEXT PAGE --------RUN DATE: 06/24/20 [facility] PAGE 2 RUN TIME: 0761 Specimen Inquiry RUN USER: INTERFACE --------SPEC #: [id number] PATIENT: GALEN VIERA #[id number] (Continued) -------- Signed Heaven Swann MD 06/24/20 [...] NORMAL DMITRY L COVID 19 Asymptomatic IH [id number] 15:19:00 Test Item Value Reference Range Interpretation Comments COVID 19 NEGATIVE NEGATIVE This test has b een Asymptomatic IH AG authorize d only for the (test code = detection ofpro teins from COVNONPUIAG) SARS-CoV-2, not for any other viruses orpathogens. Ne gative results should be treated as presumptive andconfirmed [...] ncy Use Authorization(E UA) for use by debi soto certified under the CLIA thatmeet the re [...] and/o r diagnosis of CO VID-19 under Nnhojsi49 4(b)(1) of the Act, 21 U.S .C. 360bbb-3(b)(1), unless theauthorizatio n is terminated or r evoked sooner. AG HEPATITIS B [id number] 14:55:00 Test Item Value Reference Range Interpretation Comments AG HEPATITIS B SURFACE (test code NONREACTIVE NONREACTIVE = HBSAG) IS CONSENT FORM SIGNED FOR HIV TESTING? YAB HEPATITIS C [id number] 14:55:00 Test Item Value Reference Range Interpretation Comments AB HEPATITIS C (test code = NONREACTIVE NONREACTIVE HCVAB) SIGNAL TO CUTOFF (test code = 0.06 <0.80 N CUTOFF) IS CONSENT FORM SIGNED FOR HIV TESTING? YAB [id number] 14:55:00 Test Item Value Reference Range Interpretation Comments AB TREPONEMA (test code = TREPAB) NONREACTIVE NONREACTIVE IS CONSENT FORM SIGNED FOR HIV TESTING? YAB HIV 1 14:55:00 Test Item Value Reference Range Interpretation Comments AB HIV 1 2 (test NONREACTIVE NONREACTIVE Done by [facility] code = [id number]) 4th Gen HIV Ag/Ab Combo Screen IS CONSENT FORM SIGNED FOR HIV TESTING? YAG HEPATITIS B [id number] 14:21:00 Test Item Value Reference Range Interpretation Comments AG HEPATITIS B SURFACE (test code NONREACTIVE NONREACTIVE = HBSAG) IS CONSENT FORM SIGNED FOR HIV TESTING? YAB HEPATITIS C [id number] 14:21:00 Test Item Value Reference Range Interpretation Comments AB HEPATITIS C (test code = HCVAB) NONREACTIVE SIGNAL TO CUTOFF (test code = CUTOFF) <0.80 IS CONSENT FORM SIGNED FOR HIV TESTING? YAB [id number] 14:21:00 Test Item Value Reference Range Interpretation Comments AB TREPONEMA (test code = TREPAB) NONREACTIVE NONREACTIVE IS CONSENT FORM SIGNED FOR HIV TESTING? YAB HIV 1 14:21:00 Test Item Value Reference Range Interpretation Comments AB HIV 1 2 (test code = QTQ98FV) NONREACTIVE IS CONSENT FORM SIGNED FOR HIV TESTING? YURINALYSIS W/O [id number] 13:43:00 Test Item Value Reference Range Interpretation Comments UA GLUCOSE DIPSTICK (test code = NEGATIVE NEGATIVE DGLUU) UA KETONE DIPSTICK (test code = NEGATIVE NEGATIVE KETU) UA PROTEIN DIPSTICK (test code = NEGATIVE NEGATIVE PROU) IS NURSE PERFORMING TEST? NCBC W/AUTO [id number] 13:41:00 Test Item Value Reference Range Interpretation [...] = PLTMR) - US FET BIO PH PA W/O [id number] 23:41:00 Patient Name: GALEN VIERA Unit No: [id number] EXAMS: CPT CODE: [id number] US FET BIO PH PA W/O NST 11709 Limited obstetrical ultrasound dated 06/08/2020. HISTORY: 37 week . Decreased movement. A limited transabdominal obstetrical ultrasound was performed reveals presence of a single intrauterine in cephalic position. cardiac activity is documented with a heart rate of 144 bpm. The placenta is posteriorly positioned and demonstrates grade 2 echotexture. There is no eviden ce of placenta previa. Amniotic fluid volume appears [...] MD CC: Kayy Martin MD Technologist: TOR SRIVASTAVA, MICAELA, RVT Probe: Trnscrbd D/ (2341) t.WILBERR.DMM Orig Print D/T: S: 06/08/2020 (5724) [facility] NAME: GALEN VIERA Radiology Department PHYS: Kayy Hudson MD [address] : 1995 AGE: 24 SEX: [place] [address] LOC: ClareDARIA PHONE #: [phone] EXAM DATE: 06/08/2020 STATUS: REG ER FAX #: [phone] RAD NO: Page 1 Signed Report Patient Name: GALEN VIERA Unit No: [id number] EXAMS: CPT CODE: [id number] FET BIO PH PA W/O NST 59076 (Continued) [facility] NAME: GALEN VIERA RadiologyDepartment PHYS: Kayy Hudson MD [address] : 1995 AGE: 24 SEX: [place] [address] LOC: ClareDARIA PHONE #: [phone] EXAM DATE: 06/08/2020 STATUS: REG ER FAX #: [phone] RAD NO: Page 2 Signed Report- US FLW [id number] 15:32:00 Patient Name: GALEN VIERA Unit No: [id number] EXAMS: CPT CODE: [id number] [place] [address] [address] [place], [place] [address] OBSTETRICAL ULTRASOUND REPORT Pat. Name: GALEN VIERA. No: [id number] Study Date: 04/24/2020 2:22pm , Age: 8 1995, 24 Pregnancies: 5, Para 3 LMP: 09/22/2019 GA by LMP: 30w5d GA by 1st: 30w5d GA by US: 29w3d GA Selected: 30w5d (LMP) LAINEY: 06/28/2020 Referring MD: HEATHER SERRANO Box Feeder: Candi Barfield RDMS CPT4: USPREGFU MEASUREMENTS AGE GROWTH EVALUATION MeasurementGA Range Srce %for GA Ratios ----- ---- ------- B PD 7.4 cm 30w0d (33b0f-40a7f) Hadl BPD 27% FL/BPD 0.77 (0.71 - 0.87) HC 27.5 cm 29w5d (21a3z-38g9i) Hadl HC 30% FL/AC 0.23 (0.20 - 0.24) APD 7.4 cm APD HC/AC 1.09 (0.97 - 1.16) TAD 8.6 cm TAD CI 0.79 (0.70 - 0.86) AC 25.2 cm 29w3d (93i7b-75b4x) Hadl AC 23% FL 5.7 cm 29w4d (10q3w-05m9f) Hadl FL 26% HL5.0 cm 29w2d (45d6z-28k6x) [place] HL 26% GA for sonogram 29w3d (49o4c-36t0l) Weight Estimate: based on (BPD,HC,AC,FL) Hadlock Weight: 1430 gm (6043-6389) Hadlo : 3lbs, 2oz Normal: 1579 gm (2024-2495) Brenn Wt% 37% for 30.7 wks Cervical Length: 4.1 cm Heart Rate: 135 bpm Amniotic Fluid Index: 15.4cm (08.9- 23.7) Q1: 4.4cm Q2: 4.3cm Q3: 3.2cm Q4: [...] previa. Amniotic fluid volume is normal. [facility] NAME: AYLIN,GALEN Radiology Department PHYS: Heather Loyd MD [address] : 1995 AGE: 24 SEX: F [place], [place] [address] LOC: F.RAD PHONE #: [phone] EXAM DATE: 04/24/2020STATUS: REG CLI FAX #: [phone] RAD NO: Page 1 Signed Report (CONTINUED) Patient Name: GALEN VIERA Unit No: [id number] EXAMS: CPT CODE: [id number] [place]W UP [address] (Continued) Uterus and adnexa: No significant abnormality is seen. Thank you for allowing us to participate in the care of this patient. Pa Capone M.D. Electronic Signature 04/24/2020 03:32pm at 1532 Reported and signed by: Pa Capone MD CC: Technologist: Candi Barfield RDMS Probe: Trnscrbd D/ (153) Awais Graf D/T: S: 04/24/2020 (153) [facility] NAME: GALEN VIERA Radiology Department PHYS: Heather Gaspar MD [address] : 1995 AGE: 24 SEX: F [place], [place] [address] LOC: ClareRAD PHONE #: [phone] EXAM DATE: 04/24/2020 STATUS: REG CLI FAX #: [phone] RAD NO: Page 2 Signed Report Patient Name: GALEN VIERA Unit No: [id number] EXAMS: CPT CODE: [id number] [place]REGNANCY FLW UP [address] (Continued) [facility] NAME: GALEN VIERA Radiology Departm ent PHYS: Heather Loyd MD [address] : 1995 AGE: 24 SEX: F [place], [place] [address]WIHL NO: [id number] LOC: ClareRAD PHONE #: [phone] EXAM DATE: 04/24/2020 STATUS: REG CLI FAX #: [phone] RAD NO: Page 3 Signed Report- US PREG AFTER [id number] 14:10:00 Patient Name: GALEN VIERA Unit No: [id number] EXAMS: CPT CODE: [id number] US PREG AFTER TRI [address] [facility] [address] [place], [place] [address] OBSTETRICAL ULTRASOUND REPORT Pat. Name: GALEN VIERA Pat. No: [id number] Study Date: 02/14/2020 12:59pm , Age: 8 1995, 24 Pregnancies: 5, Para 3 LMP: 09/22/2019 GA by LMP: 20w5d GA by US: 20w0d GA Selected: 20w5d (From Known E) LAINEY: 06/28/2020 ReferringMD: HEATHER SERRANO Box Feeder: Amy Valdivia RDMS CPT4: [id number] Admitting MD: HEATHER SERRANO Hist/Ind: ANATOMY SCAN 1 PATIENCE UREMENTS AGE GROWTH EVALUATION Measurement GA Range Srce %for GA Ratios ----- ---- ------- BPD 4.4 cm 19w2d (79j4x-93p7r) Hadl BPD <05FL/BPD 0.79 HC 17.0 cm 19w4d (35y9t-98t6x) Hadl HC 16% FL/AC 0.23 APD 5.1 cm APD HC/AC 1.11 (1.06 -1.24) TAD 4.6 cm TAD CI 0.75 (0.70 - 0.86) AC 15.3 cm 20w1d (00p0g-39h0g) Hadl AC 38% FL 3.5 cm 20w5d (17h6e-64m8t) Hadl FL 49% HL 3.2 cm 20w5d (30i7z-96g8z) [place] HL 50% GA for sonogram 20w0d (52k1h-38h5s) Weight Estimate: based on (BPD,HC,AC,FL) Hadlock Weight: 362 gm (309-415) Hadlock : 0lbs,12oz Cervical Length: 4.6 cm Heart Rate: 136 bpm MATERNAL ANATOMY Ovaries LxHxW (cm) Right 2.7 x 1.7 x 1.9 Vol: 4.6cc Ovarian Cysts LxHxW (cm) R1: 2.0 x 1.1 x 1.5 CLINICAL SUMMARY Type of Gestation: [place] Intrauterine in variable presentation. size is appropriate for gestational age. motion and organs seen: heart motion seen Four chamber heart observed Left ventricular outflow tract (LVOT) seen [facility] NAME: GALEN VIERA Radiology Department PHYS: Heather Loyd MD [address] : 1995 AGE: 24 SEX: [place] [address] LOC: F.RAD PHONE #: [phone] EXAM DATE: 02/14/2020 STATUS: REG CLI FAX #: [phone] RAD NO: Page 1 Signed Report (CONTINUED) Patient Name: GALEN VIERA Unit No: [id number] EXAMS: CPT CODE: [id number] US PREG AFTER 1ST TRI 82541 (Continued) Right ventricular outflow tract (RVOT) seen Regular [...] and signed by: Farheen Jarrett MD CC: Heather Botello echnologist: Amy Valdivia RDMS Probe: Trnscrbd D/ (1410) t.NMG Orig Print D/T: S: 02/14/2020 (1410) [facility] NAME: GALEN VIERA Radiology Department PHYS: Heather Loyd MD [address] : 1995 AGE: 24 SEX: [place] [address] LOC: ClareRAD PHONE #: [phone] EXAM DATE: 02/14/2020 STATUS: REG CLI FAX #: [phone] RAD NO: Page 2 Signed Report Patient Name: GALEN VIERA Unit No: [id number] EXAMS: CPT CODE: [id number] USPREG AFTER TRI [address]7076 (Continued) [facility] NAME: GALEN VIERA Radiology Department PHYS: Heather Loyd MD [address] : 1995 AGE: 24 SEX: [place] [address] LOC: ClareRAD PHONE #: [phone] EXAM DATE: 02/14/2020 STATUS: REG BYRONI FAX #: [phone] RAD NO: Page 3 Signed ReportPOCT URINALYSIS W/O SPECIFIC [id number] 21:40:00 Test Item Value Reference Range Interpretation Comments POCT PH U (test code = 3254) . 5-8 POCT U LEUK EST (test code = 3263) . Negative - Negative POCT U NIT (test code = 3262) . Negative - Negative POCT U PROT (test code = 3259) Trace Negative - Negative POCT U GLU (test code = 3256) Neg Negative - Negative POCT U KETONE (test code = 3258) . Negative - Negative POCT U BLD (test code = 3257) . Negative - Negative [facility]O SPECIFIC [id number] 21:40:00 Test Item Value Reference Range Interpretation Comments POCT PH U (test code = 3254) . 5-8 POCT U LEUK EST (test code = 3263) . Negative - Negative POCT U NIT (test code = 3262) . Negative - Negative POCT U PROT (test code = 3259) Trace Negative - Negative POCT U GLU (test code = 3256) Neg Negative - Negative POCT U KETONE (test code = 3258) . Negative - Negative POCT U BLD (test code = 3257) . Negative - Negative [id number] 21:33:00 Test Item Value Reference Range Interpretation Comments POCT PREG (test code = 1605) Positive On board controls acceptable with C Yes Line (test code = 3574) POCT PREG LOT # (test code = 3575) POCT PREG TEST DATE (test code = 3576) [facility] [id number] 21:33:00 Test Item Value Reference Range Interpretation Comments POCT PREG (test code = 1605) Positive On board controls acceptable with C Yes Line (test code = 3574) POCT PREG LOT # (test code = 3575) POCT PREG TEST DATE (test code = 3576) [facility]
[2022-05-16] MEDS ORDERED: AZITHROMYCIN 250 MG TAB ONE (02:04)
[2022-05-16] MEDS ORDERED: DOXYCYCLINE 100 MG CAP PO ONE (02:04)
[2022-05-16] MEDS ORDERED: CEFTRIAXONE 1000 MG/VIAL ONE (02:04)
[2022-05-16 02:05] LABS: Urine Blood Negative (Negative); Urine Glucose Negative (Negative); Urine Protein 1+ (Negative); Urine Specific Gravity >=1.030 (1.005-1.030); Urine pH 6.5 (5.0-7.0)
[2022-05-16] MEDS ORDERED: WATER FOR INJ,STERILE 10 ML ONE (02:05)
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
[2022-05-16 03:54] VITALS: BP 120/78; TEMP 97.3; O2SAT 99
== END 2022-05-16 03:23 | disposition home or self-care (01) ==
LOC: ER 01:34
DX: Z71.1 Person with feared health complaint in whom no diagnosis is made (principal)
CPT/HCPCS: 81003; 96372; 99283

== ENCOUNTER 2023-05-11 13:50 | Emergency (ER) | payer SELFPAY ==
--- OUTSIDE RECORDS SUMMARY | 2023-05-11 13:54 | XMS REPORT | Continuity of Care Document ---
:1995 Author Organization [facility] [place] t Address [address] [facility] [address] [facility] [address] [place] [address] Care Team Providers Name Role Phone Heather Serrano Attending Clinician Unavailable Jerald Mccollum Attending Clinician Unavailable Bonifacio Valdivia Attending Clinician [phone] BONIFACIO LATIF Attending Clinician Unavailable Doctor Unassigned, [place] Attending Clinician Unavailable Heather Serrano Admitting Clinician Unavailable Payers Payer Name Policy Type Policy Number Effective Date Expiration Date S ource Problems Condition Condition Condition Status Onset Resolution Last Treating Co mments Source Name Details Category Date Date Treatment Clinician Date Yeast Yeast Disease Active 2020-0 Univers infection infection 2-21 ity of 00:00: [address] Supervisio Supervisio Disease Active 2020-0 U nivers n of n of 2-13 [place] of high[place] [facility] Multiparit Multiparit Disease Active 2020-0 U nivers y y 2-13 ity of 00:00: [address] History of History of Disease Active 2020-0 Overview : Univers herpes herpes 2-13 Suppressi ity of genital[place]is [place] 00 weeks [facility] Branch Rubella Rubella Disease Active 2013-09 Univers non-immune non-immune 09-15 it y of status, status, 00:00: [place] antepartum antepartum 00 Me dical Branch History of History of Disease Active 2013-09 Overview : [place] [facility] 09-15 x3 ity of section section 00:00: [place] 00 Medical Branch Encounter Encounter Disease Active 2012-09 Overview: Univers for for 10-18 ICD10 ity of routine routine 00:00: Diagnosis [place] gynecologi gynecologi 00 Term Me dical екатерина екатерина [employer] [place] Branch examinatio examinatio Utility n n Generalize Generalize Disease Active U nivers d anxiety d anxiety 11-08 ity of disorder disorder 00:00: [place] 00 Medical Branch Allergies, Adverse Reactions, Alerts Allergy Allergy Status Severity Reaction(s) Onset Inactive Treating Comm ents Source Name Type Date Date Clinician No Known DA Active U [facility] 06[facility]08 [facility] [place] No Known DA Active U [facility] 06[facility]08 [facility] All[facility]ie [facility]: [facility] [place] FA Active WI [facility] d oil 02-26 [facility] 00:[facility] [place] FA Active WI MUNOZ NAUSEA [facility] d oil 02-26 [facility] 00:[facility]: [facility] [place] NO KNOWN Drug Active Univers ALLERGIE Class ity of S [facility] Social History Social Habit Start Date Stop Date Quantity Comments Source ASSERTION 2019-10-06 [facility] 00:00:00 [facility] Branch [facility] [place] [facility] [place] [facility] Alcohol intake 2019-10-25 2019-10-25 [facility] 00:00:00 00:00:00 Medical Branch Smoking Status Start Date Stop Date Source Never smoker [facility] Branch Medications Ordered Filled Start Stop Current Ordering Indication Dosage Frequency Signature Comments Components Source Medication Medication Date Date Medication? Clinician (SIG) Name Name terconazole 2020- No [id number] 1{appli Insert 1 Univers 0.4 % 11-02 cator} Applicator ity o f vaginal 00:00: 05:59 into [place] cream 00 :00 vagina at Medical bedtime Branch for 3 days. terconazole 2020- No [id number] 1{appli Insert 1 Univers 0.4 % 211-06 cator} Applicator ity o f vaginal 00:00: 05:59 into [place] cream 00 :00 vagina at [facility] bedtime Branch for 3 days. 2013-09 Yes [id number] 1{tbl} Take 1 Tab Univers multivitami 0-07 by mouth ity of n ( [place] VIT[place] 00 Medical tablet [place] 2013-09 Yes [id number] 1{tbl} Take 1 Tab Univers multivitami 0-07 by mouth ity of n ( [place] VIT[place]IN[place] 00 Medical tablet [place] 2013-09 Yes [id number] 1{tbl} Take 1 Tab Univers multivitami 0-07 by mouth ity of n ( [place] VIT[place]IN[place] 00 Medical tablet [place] 2013-09 Yes [id number] 1{tbl} Take 1 Tab Univers multivitami 0-07 by mouth ity of n ( [place] VIT[place]IN[place] 00 Medical tablet [place] 2013-09 Yes [id number] 1{tbl} Take 1 Tab Univers multivitami 0-07 by mouth ity of n ( [place] VIT[place] 00 Medical tablet [place] 2013-09 Yes [id number] 1{tbl} Take 1 Tab Univers multivitami 0-07 by mouth ity of n ( [place] VIT[place]IN[place] 00 Medical tablet [place] 2013-09 Yes [id number] 1{tbl} Take 1 Tab Univers multivitami 0-07 by mouth ity of n ( [place] 00 [facility] Immunizations Ordered Filled Immunization Date Status Comments [facility] e Immunization Name Name Tdap 2013-04-18 Completed University of 00:00:00 [facility] Tdap 2013-04-18 Completed University of 00:00:00 [facility] Tdap 2013-04-18 Completed University of 00:00:00 [facility] Tdap 2013-04-18 Completed University of 00:00:00 [facility] Tdap 2013-04-18 Completed University of 00:00:00 [facility] Tdap 2013-04-18 Completed University of 00:00:00 [facility] Tdap 2013-04-18 Completed University of 00:00:00 [facility] Varicella 2012-11-08 Completed University of (varivax)(chicken 00:00:00 [place] M edical pox) Branch Rubella 2012-11-08 Completed University of 00:00:00 [facility] Varicella 2012-11-08 Completed University of (varivax)(chicken 00:00:00 [place] M edical pox) Branch Rubella 2012-11-08 Completed University of 00:00:00 [facility] Varicella 2012-11-08 Completed University of (varivax)(chicken 00:00:00 [place] M edical pox) Branch Rubella 2012-11-08 Completed University of 00:00:00 [facility] Varicella 2012-11-08 Completed University of (varivax)(chicken 00:00:00 [place] M edical pox) Branch Rubella 2012-11-08 Completed University of 00:00:00 [facility] Varicella 2012-11-08 Completed University of (varivax)(chicken 00:00:00 [place] M edical pox) Branch Rubella 2012-11-08 Completed University of 00:00:00 [facility] Varicella 2012-11-08 Completed University of (varivax)(chicken 00:00:00 [place] M edical pox) Branch Rubella 2012-11-08 Completed University of 00:00:00 [facility] Varicella 2012-11-08 Completed University of (varivax)(chicken 00:00:00 [place] M edical pox) Branch Rubella 2012-11-08 Completed University of 00:00:00 [facility] Vital Signs Vital Name Observation Time Observation Value Comments Source Systolic blood 2019-10-25 21:31:00 103 mm[Hg] Univer sity of pressure [facility] Diastolic blood 2019-10-25 21:31:00 63 mm[Hg] Unive rsity of pressure [facility] Heart rate 2019-10-25 21:31:00 92 /min [facility] Body temperature 2019-10-25 21:31:00 37.33 Fifi [facility] Respiratory rate 2019-10-25 21:31:00 16 /min [facility] Body height 2019-10-25 21:31:00 160 cm [facility] Body weight 2019-10-25 21:31:00 52.674 kg [facility] BMI 2019-10-25 21:31:00 20.57 kg/m2 [facility] Procedures Procedure Date / Time Performing Clinician Source Performed [id number] 2020-06-23 00:00:00 [facility] [id number] 2020-06-23 00:00:00 [facility] AUTHORIZATION FOR 2019-11-05 06:01:00 Doctor Unassigned, No [facility] OF [facility] POCT URINALYSIS W/O 2019-10-25 21:40:00 Bonifacio Latif Uni versity [facility] SPECIFIC GRAVITY [facility] POCT TEST 2019-10-25 21:33:00 Bonifacio Latif Uni [facility] ASSIGNMENT OF BENEFITS 2019-10-25 20:39:24 Doctor Unassigned, No [facility] Encounters Start End Encounter Admission Attending Care Care Encounter Source Date/Time Date/Time Type Type Clinicians Facility Department ID 2020-06-20 [id number] 08:30:00 Heather 04 [facility] [place] 2020-06-08 [facility] D[facility]IA [id number] [facility] 20:26:00 Heather 35 [facility] [place] 2020-05-28 2020-05-28 Emergency EM Don[facility]G [facility] DARIA [id number] [facility] 11:41:00 15:08:00 omez, 55 [facility] [place] 2020-04-24 2020-04-24 Outpatient Serrano, [facility] RADI [id number] [facility] 14:00:00 14:00:00 Heather 78 [facility] [place] 2020-02-14 2020-02-14 Outpatient Serrano, [facility] RADI [id number] [facility] 13:00:00 13:00:00 Heather 05 [facility] [place] 2019-12-12 2019-12-12 Letter Salomon DCJOSE [id number] 00:00:00 00:00:00 (Out) Bonifacio Kc LICENSED SURVEYOR 350.1.13.10 REGIONAL 4.2.7.2.686 MATERNAL [id number] & CHILD 107 [facility] 2019-12-12 2019-12-12 [facility] [id number] Univers 00:00:00 00:00:00 (Out) Bonifacio C LICENSED SURVEYOR 350.1.13.10 ity of REGIONAL 4.2.7.2.686 [place] as MATERNAL [phone] Med ical & CHILD [address] [place] [address] 2019-11-21 2019-11-21 Outpatient R SALOMON [facility] [id number] Univers 09:45:00 09:45:00 BONIFACIO ity o f [facility] 2019-11-05 2019-11-05 Orders Doctor JIMENEZ [id number] Univers 00:00:00 00:00:00 Only Unassigned, AYLIN 350.1.13.10 ity of [place] [facility] 4.2.7.2.686 Noble as [phone] [address] 2019-11-05 2019-11-05 Orders Doctor JIMENEZ [id number] 00:00:00 00:00:00 Only Unassigned, AYLIN 350.1.13.10 [place] [facility] 4.2.7.2.686 [id number] [facility] 2019-11-02 2019-11-02 Telephone [facility] [id number] Univers 00:00:00 00:00:00 Bonifacio C LICENSED SURVEYOR 350.1.13.10 ity of REGIONAL 4.2.7.2.686 [place] as MATERNAL [phone] [facility] ical & CHILD [address] [place] [address] 2019-11-02 2019-11-02 [facility] [place] 1.2.840.114 [id number] 00:00:00 00:00:00 Bonifacio C LICENSED SURVEYOR 350.1.13.10 REGIONAL 4.2.7.2.686 MATERNAL [phone] & CHILD [address] [place] [address] 2019-10-25 2019-10-25 Initial [facility] [id number] Univers 14:59:01 16:20:39 Bonifacio C LICENSED SURVEYOR 350.1.13.10 ity of Visit [facility] 4.2.7.2.686 Nobel as MATERNAL [phone] Med ical & CHILD 107 [facility] 2019-10-25 2019-10-25 Outpatient R SALOMON [facility] [id number] Univers 14:00:00 15:17:39 BONIFACIO lopezy o f [facility] 2019-10-25 2019-10-25 Orders Doctor JIMENEZ 1.2.840.114 [id number] Univers 00:00:00 00:00:00 Only Unassigned, AYLIN 350.1.13.10 ity of [place] [facility] 4.2.7.2.686 [place] as [phone] [address] Results Test Description Test Time Test Comments Results Result [facility] e Comments FALLOPIAN 2020-06-24 TUBE,STERILIZATION 16:03:00 --------RUN DATE: 06/24/20 [facility] PAGE 1 RUN TIME: 1731 Specimen Inquiry RUN USER: INTERFACE --------PATIENT: GALEN VIERA LOC: ClareSONIA U #: [id number] AGE/SX: 24/F ROOM: [facility] RE06/23/20[facility] DR: Heather Serrano MD : 93 BED: A DIS: STATUS: ADM IN TLOC: -------- SPEC #: [id number] RECD: 06/23/20 STATUS: LINCOLN ALTAMIRANO #: [id number] EDILBERTO: 06/23/20- SUBM DR: Heather Serrano MD ENTERED: 06/23/20 SP TYPE: [facility] DR: ORDERED: LEVEL II SURGIC/2 CODES: C21059 - FALLOPIAN TUBE PROCEDURES: LEVEL II SURGIC (Incomplete) TISSUES: FALLOPIAN TUBE, NOS - BILATERAL FALLOPIAN TUBES CLINICAL HISTORY 24 year old, . 39.2 weeks, repeat section (kr) FINAL DIAGNOSIS Right fallopian tube, ligation: - completely transected unremarkable fallopian tube Left fallopian tube, ligation: - completely transected unremarkable fallopian tube CPT code(s): 69256 x2 [facility]/.wpd GROSS DESCRIPTION ANATOMIC SOURCE OF TISSUE (per Requisition): 1. Right fallopian tube 2. Left fallopian tube Each specimen is labeled with the patient's name and medical record number. Specimen #1 is designated "right fallopian tube" and consists of a 2 x 0.6 cm blair-pink tubular tissue. No fimbriae are identified. Sectioning reveals a pinpoint lumen. A risk control representative section is submitted in A1. Specimen #2 is designated "left fallopian tube" and consists of a 1 x 0.6 cm blair-pink tubular tissue. No fimbriae are identified. Sectioning reveals a pinpoint lumen. A risk control representative section is submitted in B1. daniel/shaun 06/23/20 CONTINUED ON NEXT PAGE --------RUN DATE: 06/24/20 [facility] PAGE 2 RUN TIME: 1731 Specimen Inquiry RUN USER: INTERFACE --------SPEC #: [id number] PATIENT: AYLINGALEN #[id number] (Continued) -------- Signed Heaven Swann MD 06/24/20 1603 -------- END OF REPORT CBC W/AUTO DIFF 2020-06-24 07:08:00 Test Item Value Reference Range Interpretation Comme magalis WHITE BLOOD CELL (test code = WBC) [...] NORMAL DMITRY L COVID 19 Asymptomatic IH [id number] 15:19:00 Test Item Value Reference Range Interpretation [...] or approved; th e test hasbeen authori josh by FDA under an Emerge ncy Use [...] and/o r diagnosis of CO VID-19 under Zrmnosv61 4(b)(1) of the Act, 21 U.S .C. 360bbb-3(b)(1), unless theauthorizatio n is terminated or r evoked sooner. AG HEPATITIS B [id number] 14:55:00 Test Item Value Reference Range Interpretation Comments AG HEPATITIS B SURFACE (test code NONREACTIVE NONREACTIVE = HBSAG) IS CONSENT FORM SIGNED FOR HIV TESTING? YAB HEPATITIS C [id number] 14:55:00 Test Item Value Reference Range Interpretation Comments AB HEPATITIS C (test code = NONREACTIVE NONREACTIVE HCVAB) SIGNAL TO CUTOFF (test code = 0.06 <0.80 N CUTOFF) IS CONSENT FORM SIGNED FOR HIV TESTING? YAB [id number] 14:55:00 Test Item Value Reference Range Interpretation Comments AB TREPONEMA (test code = TREPAB) NONREACTIVE NONREACTIVE IS CONSENT FORM SIGNED FOR HIV TESTING? YAB HIV 1 14:55:00 Test Item Value Reference Range Interpretation Comments AB HIV 1 2 (test NONREACTIVE NONREACTIVE [facility] code = EJC30NI) 4th Gen HIV Ag/Ab Combo Screen IS CONSENT FORM SIGNED FOR HIV TESTING? YAG HEPATITIS B [id number] 14:21:00 Test Item Value Reference Range Interpretation Comments AG HEPATITIS B SURFACE (test code NONREACTIVE NONREACTIVE = HBSAG) IS CONSENT FORM SIGNED FOR HIV TESTING? YAB HEPATITIS C [id number] 14:21:00 Test Item Value Reference Range Interpretation Comments AB HEPATITIS C (test code = HCVAB) NONREACTIVE SIGNAL TO CUTOFF (test code = CUTOFF) <0.80 IS CONSENT FORM SIGNED FOR HIV TESTING? YAB [id number] 14:21:00 Test Item Value Reference Range Interpretation Comments AB TREPONEMA (test code = TREPAB) NONREACTIVE NONREACTIVE IS CONSENT FORM SIGNED FOR HIV TESTING? YAB HIV 1 14:21:00 Test Item Value Reference Range Interpretation Comments AB HIV 1 2 (test code = LEN39IB) NONREACTIVE IS CONSENT FORM SIGNED FOR HIV TESTING? YURINALYSIS W/O [id number] 13:43:00 Test Item Value Reference Range Interpretation Comments UA GLUCOSE DIPSTICK (test code = NEGATIVE NEGATIVE DGLUU) UA KETONE DIPSTICK (test code = NEGATIVE NEGATIVE KETU) UA PROTEIN DIPSTICK (test code = NEGATIVE NEGATIVE PROU) IS NURSE PERFORMING TEST? NCBC W/AUTO [id number] 13:41:00 Test Item Value Reference Range Interpretation [...] = PLTMR) - US FET BIO PH WV W/O [id number] 23:41:00 Patient Name: GALEN VIERA Unit No: [id number] EXAMS: CPT CODE: [id number] US FET BIO PH W[place] W/O NST 14087 Limited obstetrical ultrasound dated 06/08/2020. HISTORY: 35 [...] TOR SRIVASTAVA RDMS, RVT Probe: Trnscrbd D/ (2341) [email or web address] Orig Print D/T:S: 06/08/2020 (5152) [facility] NAME: AYLINGALEN Radiology Department PHYS: Kayy Hudson MD [address] : 1995 AGE: 24 SEX: [place] [address] LOC: ClareDARIA PHONE #: [phone] EXAM DATE: 06/08/2020 STATUS: REG ER FAX #: [phone] RAD NO: Page 1 Signed Report Patient Name: GALEN VIERA Unit No: [id number] EXAMS: CPT CODE: [id number] US FET BIO PH W[place] W/O NST 91566 (Continued) [facility] NAME: GALEN VIERA RadiologyDepartment PHYS: Kayy Hudson MD [address] : 1995 AGE: 24 SEX: F [place] [address] LOC: ClareDARIA PHONE #: [phone] EXAM DATE: 06/08/2020 STATUS: REG ER FAX #: [phone] RAD NO: Page 2 Signed Report- US FLW [id number] 15:32:00 Patient Name: GALEN VIERA Unit No: [id number] EXAMS: CPT CODE: [id number] [place] [address] [address] [place], [place] [address] OBSTETRICAL ULTRASOUND REPORT Pat. Name: GALEN VIERA Pat. No: [id number] Study Date: 04/24/2020 2:22pm , Age: 8 1995, 24 Pregnancies: 5, Para 3 LMP: 09/22/2019 GA by LMP: 30w5d GA by 1st: 30w5d GA by US: 29w3d GA Selected: 30w5d (LMP) LAINEY: 06/28/2020 Referring MD: HEATHER SERRANO Herbologist: Candi Barfield RDMS CPT4: USPREGFU MEASUREMENTS AGE GROWTH EVALUATION Measurement GA Range Srce %for GA Ratios ----- ---- ------- BPD 7.4 cm 30w0d (16d4p-75t8d) Hadl BPD 27% FL/BPD 0.77 (0.71 - 0.87) HC 27.5 cm 29w5d (64q1l-84i6p) Hadl HC 30% FL/AC 0.23 (0.20 - 0.24) APD 7.4 cm APD HC/AC 1.09 (0.97 - 1.16) TAD 8.6 cm TAD CI 0.79 (0.70 - 0.86) AC 25.2 cm 29w3d (27w1d- 31w4d) Hadl AC 23% FL 5.7 cm 29w4d (89j8k-14v7v) Hadl FL 26% HL 5.0 cm 29w2d (53z3q-20d8m) [place] HL 26% GA for sonogram 29w3d (80l2m-46j4u) Weight Estimate: based on (BPD,HC,AC,FL) Hadlock Weight: 1430 gm (3158-4701) Hadlo : 3lbs, 2oz Normal: 1579 gm (8402-1708) Brenn Wt% 37% for 30.7 wks Cervical Length: 4.1 cm Heart Rate: 135 bpm Amniotic Fluid Index: 15.4cm (08.9- 23.7) Q1: 4.4cm Q2: 4.3cm Q3: 3.2cm Q4: 3.5cm CLINICAL SUMMARY Type of Gestation: Toscano Intrauterine pregnancyin vertex presentation. size is appropriate for gestational age. growth: Consistent withnormal growth motion and organs seen: heart motion seen body and limb movements observed tone noted Placental location: Posterior Placental maturity : Grade 1 There is noevidence of placenta previa. Amniotic fluid volume is normal. [facility] NAME: GALEN VIERA Radiology Department PHYS: Heather Loyd MD [address] : 1995 AGE: 24 SEX: F [place], [place] [address] LOC: ClareRAD PHONE #: [phone] EXAM DATE: 04/24/2020 STATUS: REG CLI FAX #: [phone] RAD NO: Page 1 Signed Report (CONTINUED) Patient Name: GALEN VIERA Unit No: [id number] EXAMS: CPT CODE: [id number] [place] [address] (Continued) Uterus and adnexa: No significant abnormality is seen. Thank you for allowing us to participate in the care of this patient. Pa Capone M.D. Electronic Signature 04/24/2020 03:32pm at 1532 Reported and signed by: aP Capone MD CC: Technologist: Candi Barfield RDMS Probe: Trnscrbd D/ (1532) tabbySHIRAS Orig Print D/T: S: 04/24/2020 (1532) [facility] NAME: GALEN VIERA Radiology Department PHYS: Heather Loyd MD [address] : 1995 AGE: 24 SEX: Andrea [place], [place] [address] LOC: ClareRAD PHONE #: [phone] EXAM DATE: 04/24/2020 STATUS: REG CLI FAX #: [phone] RAD NO: Page 2 Signed Report Patient Name: GALEN VIERA Unit No: [id number] EXAMS: CPT CODE: [id number] US FLW UP [address]85 (Continued) [facility] NAME: GALEN VIERA Radiology Department PHYS: Heather Loyd MD [address] : 1995 AGE: 24 SEX: F [place], [place] [address]ZXEO NO: [id number] LOC: ClareRAD PHONE #: [phone] EXAM DATE: 04/24/2020 STATUS: REG CLI FAX #: RAD NO: Page 3 Signed Report- US PREG AFTER [id number] 14:10:00 Patient Name: GALEN VIERA Unit No: [id number] EXAMS: CPT CODE: [id number] US PREG AFTER TRI [address] [facility] [address] [place], [place] [address] OBSTETRICAL ULTRASOUND REPORT Pat. Name: GALEN VIERA Pat. No: [id number] Study Date: 02/14/2020 12:59pm , Age: 8 1995, 24 Pregnancies: 5, Para 3 LMP: 09/22/2019 GA by LMP: 20w5d GA by US: 20w0d GA Selected: 20w5d (From Known E) LAINEY: 06/28/2020 Referring MD: HEATHER SERRANO Herbologist: Amy Valdivia RDMS CPT4: ZOHUUXW2P Admitting MD: HEATHER SERRANO Hist/Ind: ANATOMY SCAN 1 MEASURE MENTS AGE GROWTH EVALUATION Measurement GA Range Srce %for GA Ratios ----- ---- ------- BPD 4.4 cm 19w2d (91s8s-28g6m) Hadl BPD <05 FL/BPD 0.79 HC 17.0 cm 19w4d (17w6d- 21w1d) Hadl HC 16% FL/AC 0.23 APD 5.1 cm APD HC/AC 1.11 (1.06 - 1.24) TAD 4.6 cm TAD CI 0.75 (0.70 - 0.86) AC 15.3 cm 20w1d (41n7m-26v8q) Hadl AC 38% FL 3.5 cm 20w5d (90h1g-22y0p) Hadl FL 49% HL 3.2 cm 20w5d (31p5j-91d5d) [place] HL 50% GA for sonogram 20w0d (34u0i-00t1k) Weight Estimate: based on (BPD,HC,AC,FL) Hadlock Weight: 362 gm (309-415) Hadlock : 0lbs, 12oz Cervical Length: 4.6 cm Heart Rate: 136 bpm MATERNAL ANATOMY Ovaries LxHxW (cm) Right 2.7 x 1.7 x 1.9 Vol: 4.6cc Ovarian Cysts LxHxW (cm) R1: 2.0 x 1.1 x 1.5 CLINICAL SUMMARY Type of Gestation: Toscano Intrauterine in variable prese ntation. size is appropriate for gestational age. motion and organs seen: heart motion seen Four chamber heart observed Left ventricular outflow tract (LVOT) seen [facility] NAME: GALEN VIERA Radiology Department PHYS: Heather Loyd MD [address] : 1995 AGE: 24 SEX: [place] [address] LOC: WERO PHONE #: [phone] EXAM DATE: 02/14/2020 STATUS: REG CLI FAX #: [phone] RAD NO: Page 1 Signed Report (CONTINUED) Patient Name: GALEN VIERA Unit No: [id number] EXAMS: CPT CODE: [id number] US PREG AFTER 1ST TRI 52846 (Continued) Right ventricular outflow tract (RVOT) seen Regular cardiac rhythm observed Normal intracranial anatomy seen Umbilical cord insertion in fetus seen stomach, Renal Fossa, Bladder and Spine seen Three vessel umbilical cord noted abnormalities observed: None seen at this examPlacental location: Posterior Placental maturity : Grade 1 There is no evidence of placenta previa. Amniotic fluid volume is normal. Uterus and adnexa: No significant abnormality is seen. Farheen Jarrett M.D. Electronic Signature 02/14/2020 02:10pm at 1410 Reported and signed by: Farheen Jarrett MD CC: Heather Serrano MD Tech nologist: Amy Valdivia RDMS Probe: Trnscrbd D/ (1410) t.SDR.NMG Orig Print D/T: S: 02/14/2020 (1410) [facility] NAME: GALEN VIERA Radiology Department PHYS: Heather Gaspar MD [address] : 1995 AGE: 24 SEX: [place] [address] LOC: Andrea.RAD PHONE #: [phone] EXAM DATE: 02/14/2020 STATUS: REG CLI FAX #: [phone] RAD NO: Page 2 Signed Report Patient Name: GALEN VIERA Unit No: [id number] EXAMS: CPT CODE: [id number] US PREG AFTER 1ST TRI 44303 (Continued) [facility] NAME: GALEN VIERA Radiology Department PHYS: Heather Loyd MD [address] : 1995 AGE: 24 SEX: F [place], [place] [address]WBYK NO: [id number] LOC: Andrea.RAD PHONE #: [phone] EXAM DATE: 02/14/2020 STATUS: REG CLI FAX #: [phone] RAD NO: Page 3 Signed ReportPOCT URINALYSIS W/O SPECIFIC [id number] 21:40:00 Test Item Value Reference Range Interpretation [...] code = 3257) . [facility] [id number] 21:40:00 Test Item Value Reference Range Interpretation [...] code = 3257) . Negative - [facility] [id number] 21:33:00 Test Item Value Reference Range Interpretation Comments POCT PREG (test code = 1605) Positive On board controls acceptable with C Yes Line (test code = 3574) POCT PREG LOT # (test code = 3575) POCT PREG TEST DATE (test code = 3576) [id number] Test Item Value Reference Range Interpretation Comments POCT PREG (test code = 1605) Positive On board controls acceptable with C Yes Line (test code = 3574) POCT PREG LOT # (test code = 3575) POCT PREG TEST DATE (test code = 3576) [facility] Notes Date/Time Note Provider Source 2020-06-26 12:49:00-00:00 [facility] OB Disch REPORT#:[id number] REPORT STATUS: Signed DATE:06/26/20 TIME: 1249 PATIENT: GALEN VIERA UNIT #: [id number] ROOM/BED: [address] : 93 AGE: 24 SEX: F ATTEND: Adore Serrano MD ADM AUTHOR: Heather Serrano MD * ALL edits or amendments must be made on the [employer]/computer document * Subjective Subjective EGA at delivery (wks/days): 39 weeks (2 days) Comments: POSTOPERATIVE C/S DAY #3 SUBJECTIVE: No complaints. S cant lochia. Tolerating a regular diet. Ambulatory. Voiding spontaneously. Nursing. Passing flatus. OBJECTIVE: Vital signs stable. Afebrile Chest- clear to auscultation. Heart- regular rate and rhythm without murmurs/ gallops Abdomen - soft, Nontender, active bowel sounds. Fundus is firm, low and nontender. Incision - dry/intact/no erythema ASSESSMENT: Recovering well after secti on PLAN: Doing well and ready for discharge home. RX: [place] 5/325 mg 1-2 po q 6 hours prn pain #3 0 RX: Motrin 600 mg 1 tab po q 6 hours prn pain # 30 Resume PNV and iron as before delivery. Return to office in 2 weeks. Discharge instructions have been given. Objective General VS: Vital Signs Date Temp Pulse Resp B/P B/P Mean Pulse Ox FiO2 06/25-06/26 98.1-98.9 61-80 18-20 108-118/67-77 Last Documented: Result Date Time B/P 115/77 06/26 07 Temp 98.3 06/26 0738 Pulse 80 06/26 0738 Resp 20 06/26 0738 Pulse Ox 98 06/23 1636 B/P Mean 92.0 06/23 1245 Patient Weight Weight (lb): 143 Weight (oz): Weight (kg): 64.864 Results Findings/Data: Laboratory Tests Test Result Date Time Hematology WBC (6.6 - 12.1 K/mm3) 8.9 06/24 0600 RBC (3.45 - 5.01 M/mm3) 2.95 L 06/24 0600 Hgb (10.7 - 13.9 g/dL) 9.6 L 06/24 600 Hct (32.1 - 42.1 %) 29.5 L 06/24 600 MCV (84.1 - 94.8 fL) 100 H 06/24 600 MCH (27 - 35 pg) 32.5 06/24 600 MCHC (32.2 - 34.1 gm/dL) 32.5 06/24 600 RDW (12.4 - 16.5 %) 13.2 06/24 600 Plt Count (133 - 385 K/mm3) 171 06/24 600 MPV (9.1 - 12.7 fl) 11.0 06/24 600 Neut % (Auto) (56.5 - 79.4 %) 77.8 06/24 600 Lymph % (Auto) (14.3 - 34.3 %) 11.2 L 06/24 0 [facility] % (Auto) (5.1 - 10.4 %) 9.8 06/24 600 Eos % (Auto) (0.1 - 3.0 %) 0.7 06/24 600 Baso % (Auto) (0.1 - 1.0 %) 0.2 06/24 600 Neut # (Auto) (K/mm3) 7.0 06/24 600 Lymph # (Auto) (K/mm3) 1.0 06/24 600 [facility] # (Auto) (K/mm3) 0.9 06/24 600 Eos # (Auto) (K/mm3) 0.06 06/24 600 Baso # (Auto) (K/mm3) 0.0 06/24 600 Serology Treponema pallidum Ab (NONREACTIVE) NONREACTIV E 06/20 1030 Hep Bs Antigen (NONREACTIVE) NONREACTIVE 06/20 1030 Hepatitis C Antibody (NONREACTIVE) NONREACTIVE 06/20 1030 Hep C Ab Signal/Cutoff (<0.80) 0.06 06/20 1030 HIV 1 2 Antibody (NONREACTIVE) NONREACTIVE 0 SARS-CoV-2 Ag (Rapid) (NEGATIVE) NEGATIVE 06/20 1050 Urines Urine Protein (NEGATIVE) NEGATIVE 06/20 1015 Urine Glucose (UA) (NEGATIVE) NEGATIVE 06/20 10 15 Urine Ketones (NEGATIVE) NEGATIVE 06/20 1015 Preop H H = 10.7/32.5 Blood Type = A+ Discharge Summary General Problem List/A P: 1. 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 Previous delivery, antepartum condi tion or complication 3. 39 weeks gestation of 4. Single live 5. Multiparity 6. Encounter for female sterilization procedure 7. delivery w/o mention of indication, anam maharajiz Date of admission: Date of admission: 06/23/2020 Date of discharge: 06/26/2020 Admission diagnosis: as per Problem List Hospital course: repeat admit, tubal li gation w/, epidural anesthesia, nml postop/postpart care Procedures: repeat CS delivery (LCT incision), t ubal ligation at CS Discharge condition: stable Discharge to: Home/Self Care Discharge diagnosis: as per Problem List Discharge management: greater than 30 mins Time spent: Time spent with patient (minutes): 15 >50% spent on counseling/coordination of care: yes Additional Notes: This patient was admitted at 39.2 weeks gestation for scheduled repeat section and tubal sterilization. She has had an uncomplicated course. Blood type A+/rubella immune/RPR nonreactive/HBS Ag negative/HIV negative. She had an uncomplicated repeat low cervical transve rse section and modified [place] bilateral t ubal sterilization on 06/23/2020 with normal pelvic anatomy noted. Female, 7#2oz, Apgars 8/8. She we nt to NICU for some tachypnea and oxygen need after . Postoperatively, mother has had an uneventful re covery. On POD #1, the [place] catheter was removed and she voided spontaneousl y, began ambulating, and was advanced to a regular diet. On POD #2, she continued to improve. She was alvin nged to oral pain medication with adequate pain relief. She continued to ambu late further, and lochia was diminishing. By POD #3 she is recovering well and is ready and stable for discharge home. She remains afebrile, her lochia is scant, she tolerates the regular diet and voids spontaneously. Fundus is firm and nonten jacqui, below the umbilicus. The incision is clean, dry, intact and without erythema. Baby is released from NICU and is able to go home as well. Discharge instructions have been given in verbal and printed form. She is to return to the [facility] in 2 weeks for follow-up. She has been advised to call sooner for heavy bleeding, increasing or ab normal pain, fevers, or any incisional problems including redness/drainage/w ound separation. Baby A: status: live born Gender: female ("Sofía") 1 minute: 8 5 minutes: 8 Anomalies: None seen Nursing data: The data set between the solid lines has been im ported from nursing documentation. Any exceptions have been noted be low under Provider comments. Delivery date infant A: 06/23/20 Delivery time i nfant A: 0943 Birthweight (gm) infant A: 3220 / 7#2 Gender A: Female 1 minute A: 8 5 minutes A: 8 Plan: routine care, discharge today ( if baby can go home) Vaginal packing at delivery: No Discharge Instructions Instructions: routine instr sheet given, instr a nd warnings rev'd, specific instr as noted Diet: Resume Home Diet/Feeds Activity: No Driving, No [place] for 6 Wks, No Lifting >10lbs, No Sports/ Activities, No Strenuous Activity, No Swimming, Shower Only, Walk Additional discharge routines: Attending Follow- Up (2 weeks) Wound/dressing care: Clean wound daily, Keep wound clean and dry, OK to shower tomorrow Work/school restrictions: No work/school x 6 weeks Contraception discussed: BTL at C/S Discharge meds: Continue taking these medications: PNV/FE FUM/FA ( MULTIVITAMIN) 28 MG IRON -800 MCG TAB 1 TABLET ORAL DAILY. {FERROUS FUMARATE} ({FERROCITE}) 324 MG TAB 324 MILLIGRAM ORAL DAILY. valACYclovir (VALTREX) 500 MG TAB 500 NG ORAL TWICE DAILY. Qty = 10 Start taking the following new medications: IBUPROFEN (MOTRIN) 600 MG TAB 600 MILLIGRAM ORAL EVERY 6 HOURS NEEDED. as needed for PAIN SCALE 1-3 ( USE 1ST) Qty = 60 Refills = 1 HYDROcodone/APAP (NORCO 5/325) 1 TAB TAB 1 TABLET ORAL EVERY FOUR HOURS. Qty = 30 No Refills Prescriptions: e-prescribe Consultation(s): Consultation performed: anesthesia Reason for consultation: epidural Electronically Signed by Heather Serrano MD on 1 at 1256 RPT #:[id number] END OF REPORT 2020-06-26 10:16:00-00:00 [facility] ([facility]) OB Postpart Progr Note REPORT#:[id number] REPORT STATUS: Signed DATE:06/26/20 TIME: 1016 PATIENT: GALEN VIERA UNIT #: [id number] ROOM/BED: [address] : 93 AGE: 24 SEX: F ATTEND: Adore Serrano MD ADM AUTHOR: Heather Serrano MD * ALL edits or amendments must be made on the [employer]/computer document * Subjective Subjective EGA at delivery (wks/days): 39 weeks (2 days) Comments: POSTOPERATIVE C/S DAY #3 SUBJECTIVE: No complaints. S cant lochia. Tolerating a regular diet. Ambulatory. Voiding spontaneously. Nursing. Passing flatus. She thinks the baby will be ready for discharge later today. OBJECTIVE: Vital signs stable. Afebrile Chest- clear to auscultation. Heart- regular rate and rhythm without murmurs / gallops Abdomen - soft, Nontender, active bowel sounds. Fundus is firm, low and nontender. Incision - dry/intact/no erythema ASSESSMENT: Recovering well after secti on PLAN: Doing well and ready for discharge home. RX: [place] 5/325 mg 1-2 po q 6 hours prn pain #3 0 RX: Motrin 600 mg 1 tab po q 6 hours prn pain # 30 Resume PNV and iron as before delivery. Return to office in 2 weeks. Discharge instructions have been given. Objective General VS: Vital Signs Date Temp Pulse Resp B/P B/P Mean Pulse Ox FiO2 06/25-06/26 98.1-98.9 61-80 18-20 108-118/67-77 Last Documented: Result Date Time B/P 115/77 06/26 738 Temp 98.3 06/26 07 Pulse 80 06/26 0738 Resp 20 06/26 738 Pulse Ox 98 06/23 1636 B/P Mean 92.0 06/23 1245 Patient Weight Weight (lb): 143 Weight (kg): 64.864 Result Findings/data: Laboratory Tests Test Result Date Time Hematology WBC (6.6 - 12.1 K/mm3) 8.9 06/24 06 RBC (3.45 - 5.01 M/mm3) 2.95 L 06/24 600 Hgb (10.7 - 13.9 g/dL) 9.6 L 06/24 600 Hct (32.1 - 42.1 %) 29.5 L 06/24 600 MCV (84.1 - 94.8 fL) 100 H 06/24 600 MCH (27 - 35 pg) 32.5 06/24 600 MCHC (32.2 - 34.1 gm/dL) 32.5 06/24 0600 RDW (12.4 - 16.5 %) 13.2 06/24 600 Plt Count (133 - 385 K/mm3) 171 06/24 0600 MPV (9.1 - 12.7 fl) 11.0 06/24 600 Neut % (Auto) (56.5 - 79.4 %) 77.8 06/24 0600 Lymph % (Auto) (14.3 - 34.3 %) 11.2 L 06/24 060 0 [facility] % (Auto) (5.1 - 10.4 %) 9.8 06/24 600 Eos % (Auto) (0.1 - 3.0 %) 0.7 06/24 600 Baso % (Auto) (0.1 - 1.0 %) 0.2 06/24 600 Neut # (Auto) (K/mm3) 7.0 06/24 600 Lymph # (Auto) (K/mm3) 1.0 06/24 600 [facility] # (Auto) (K/mm3) 0.9 06/24 600 Eos # (Auto) (K/mm3) 0.06 06/24 600 Baso # (Auto) (K/mm3) 0.0 06/24 600 Serology Treponema pallidum Ab (NONREACTIVE) NONREACTIVE 06/20 103 Hep Bs Antigen (NONREACTIVE) NONREACTIVE 06/20 103 Hepatitis C Antibody (NONREACTIVE) NONREACTIVE 06/20 103 Hep C Ab Signal/Cutoff (<0.80) 0.06 06/20 1030 HIV 1 2 Antibody (NONREACTIVE) NONREACTIVE 9 1030 SARS-CoV-2 Ag (Rapid) (NEGATIVE) NEGATIVE 06/20 1050 Urines Urine Protein (NEGATIVE) NEGATIVE 06/20 1015 Urine Glucose (UA) (NEGATIVE) NEGATIVE 06/20 10 15 Urine Ketones (NEGATIVE) NEGATIVE 06/20 1015 Preop H H = 10.7/32,5 Blood Type = A+ Diagnosis, Assessment Plan Diagnosis, Assessment Plan Problem List/A P: 1. 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 Previous delivery, antepartum condi tion or complication 3. 39 weeks gestation of 4. Single live 5. Multiparity 6. Encounter for female sterilization procedure 7. delivery w/o mention of indication, deliv, curr hospitaliz Assessment: nml progress, iron defici ency anemia Plan: routine care, discharge today ( if baby can go home) Consultation(s): Consultation performed: anesthesia Reason for consultation: epidural Plan discussed with: patient, spouse/partner Electronically Signed by Heather Serrano MD on 1 at 1249 RPT #:[id number] END OF REPORT 2020-06-25 12:16:00-00:00 [facility] ([facility]) OB Postpart Progr Note REPORT#:[id number] REPORT STATUS: Signed DATE:06/25/20 TIME: 1216 PATIENT: GALEN VIERA UNIT #: [id number] ROOM/BED: 46[address]A : 93 AGE: 24 SEX: F ATTEND: Adore Serrano MD ADM AUTHOR: Heather Serrano MD * ALL edits or amendments must be made on the [employer]/computer document * Subjective Subjective EGA at delivery (wks/days): 39 weeks (2 days) Comments: POSTOPERATIVE C/S DAY #2 SUBJECTIVE: No complaints. S cant lochia. Tolerating a regular diet. Ambulatory. Voiding spontaneously. Nursing. Passing flatus. Incisional pain controlled on po pain meds. Baby still in NICU 2 and report edly improving. OBJECTIVE: Vital signs stable. Afebrile Chest- clear to auscultation Heart- regular rate and rhythm, without murmurs or gallops Abdomen- soft, nontender, active bowel sounds. Fundus is firm/low/ nontender Incision- dry, intact, no erythema ASSESSMENT: Recovering well after secti on PLAN: Continue care per orders. Ambu late ad michael. May shower. Objective General VS: Vital Signs Date Temp Pulse Resp B/P B/P Mean Pulse Ox FiO 2 06/24-06/25 98.2-99.0 69-82 18-20 104-115/68-76 Last Documented: Result Date Time B/P 06/25 Temp 98.3 06/25 08 Pulse 69 06/25 08 Resp 20 06/25 08 Pulse Ox 98 06/23 1636 B/P Mean 92.0 06/23 1245 Patient Weight Weight (lb): 143 Weight (kg): 64.864 Result Results: no new labs Diagnosis, Assessment Plan Diagnosis, Assessment Plan Problem List/A P: 1. 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 Previous delivery, antepartum condi tion or complication 3. 39 weeks gestation of 4. Single live 5. Multiparity 6. Encounter for female sterilization procedure 7. delivery w/o mention of indication, deliv, curr hospitaliz Assessment: nml progress, iron defici ency anemia Plan: routine care Consultation(s): Consultation performed: anesthesia Reason for consultation: epidural Plan discussed with: patient, spouse/partner Electronically Signed by Heather Serrano MD on 1 at 1224 [facility] #:[id number] END OF REPORT 2020-06-24 13:03:00-00:00 [facility] OB Postpart Progr Note REPORT#:[id number] REPORT STATUS: Signed DATE:06/24/20 TIME: 1303 PATIENT: GALEN VIERA UNIT #: [id number] ROOM/BED: [address] : 93 AGE: 24 SEX: F ATTEND: Adore Serrano MD ADM AUTHOR: Heather Serrano MD * ALL edits or amendments must be made on the [employer] document * Subjective Subjective EGA at delivery (wks/days): 39 weeks (2 days) Comments: POSTOPERATIVE C/S DAY #1 SUBJECTIVE: No complaints. S cant lochia. Tolerating a regular diet. Ambulatory. Voiding spontaneously. Pumping. Passing flatus. Incisional pain controlled with epidural and po pain meds.Baby improving an d coming out to Level 2 NICU today - offf CPAP and on RA according to Mom. She passed a golf-ball size clot this AM but no others. OBJECTIVE: Vital signs stable. Afebrile Chest- clear to auscultation Heart- regular rate and rhythm, without murmurs or gallops Abdomen- soft, nontender, active bowel sounds. Fundus is firm/low/ nontender Incision- dry, intact, no erythema ASSESSMENT: Recovering well after secti on PLAN: Continue care per orders. Ambul ate ad michael Objective General VS: Vital Signs Date Temp Pulse Resp B/P B/P Mean Pulse Ox FiO2 06/23-06/24 97.6-99.2 59-83 18-19 95-122/58-77 98 Last Documented: Result Date Time B/P 106/66 06/24 1215 Temp 98.7 06/24 1215 Pulse 83 06/24 1215 Resp 18 06/24 1215 Pulse Ox 98 06/23 1636 B/P Mean 92.0 06/23 1245 Patient Weight Weight (lb): 143 Weight (kg): 64.864 Result Findings/data: Laboratory Tests: Laboratory Tests 06/24 0600 Hematology WBC (6.6 - 12.1 K/mm3) 8.9 RBC (3.45 - 5.01 M/mm3) 2.95 L Hgb (10.7 - 13.9 g/dL) 9.6 L Hct (32.1 - 42.1 %) 29.5 L MCV (84.1 - 94.8 fL) 100 H MCH (27 - 35 pg) 32.5 MCHC (32.2 - 34.1 gm/dL) 32.5 RDW (12.4 - 16.5 %) 13.2 Plt Count (133 - 385 K/mm3) 171 MPV (9.1 - 12.7 fl) 11.0 Neut % (Auto) (56.5 - 79.4 %) 77.8 Lymph % (Auto) (14.3 - 34.3 %) 11.2 L [facility] % (Auto) (5.1 - 10.4 %) 9.8 Eos % (Auto) (0.1 - 3.0 %) 0.7 Baso % (Auto) (0.1 - 1.0 %) 0.2 Neut # (Auto) (K/mm3) 7.0 Lymph # (Auto) (K/mm3) 1.0 [facility] # (Auto) (K/mm3) 0.9 Eos # (Auto) (K/mm3) 0.06 Baso # (Auto) (K/mm3) 0.0 Preop H H = 10.7/32.5 Diagnosis, Assessment Plan Diagnosis, Assessment Plan Problem List/A P: 1. 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 Previous delivery, antepartum condi tion or complication 3. 39 weeks gestation of 4. Single live 5. Multiparity 6. Encounter for female sterilization procedure 7. delivery w/o mention of indication, delsavi, anam hospitaliz 8. Seizure disorder during , delivered Assessment: nml progress, iron defici ency anemia Plan: routine care Consultation(s): Consultation performed: anesthesia Reason for consultation: epidural Plan discussed with: patient, spouse/partner Electronically Signed by Heather Serrano MD on at 1308 RPT #:[id number] END OF REPORT 2020-06-24 13:03:00-00:00 [facility] OB Postpart Progr Note REPORT#:[id number] REPORT STATUS: Signed DATE:06/24/20 TIME: 1303 PATIENT: GALEN VIERA UNIT #: [id number] ROOM/BED: [address] : 93 AGE: 24 SEX: F ATTEND: Adore Serrano MD ADM AUTHOR: Heather Serrano MD * ALL edits or amendments must be made on the [employer] document * See Addendum Subjective Subjective EGA at delivery (wks/days): 39 weeks (2 days) Comments: POSTOPERATIVE C/S DAY #1 SUBJECTIVE: No complaints. S cant lochia. Tolerating a regular diet. Ambulatory. Voiding spontaneously. Pumping. Passing flatus. Incisional pain controlled with epidural and po pain meds.Baby improving an d coming out to Level 2 NICU today - offf CPAP and on RA according to Mom. She passed a golf-ball size clot this AM but no others. OBJECTIVE: Vital signs stable. Afebrile Chest- clear to auscultation Heart- regular rate and rhythm, without murmur s or gallops Abdomen- soft, nontender, active bowel sounds. Fundus is firm/low/ nontender Incision- dry, intact, no erythema ASSESSMENT: Recovering well after secti on PLAN: Continue care per orders. Ambul ate ad michael Objective General VS: Vital Signs Date Temp Pulse Resp B/P B/P Mean Pulse Ox FiO2 06/23-06/24 97.6-99.2 59-83 18-19 95-122/58-77 98 Last Documented: Result Date Time B/P 106/66 06/24 1215 Temp 98.7 06/24 1215 Pulse 83 06/24 1215 Resp 18 06/24 1215 Pulse Ox 98 06/23 1636 B/P Mean 92.0 06/23 1245 Patient Weight Weight (lb): 143 Weight (kg): 64.864 Result Findings/data: Laboratory Tests: Laboratory Tests 06/24 0600 Hematology WBC (6.6 - 12.1 K/mm3) 8.9 RBC (3.45 - 5.01 M/mm3) 2.95 L Hgb (10.7 - 13.9 g/dL) 9.6 L Hct (32.1 - 42.1 %) 29.5 L MCV (84.1 - 94.8 fL) 100 H MCH (27 - 35 pg) 32.5 MCHC (32.2 - 34.1 gm/dL) 32.5 RDW (12.4 - 16.5 %) 13.2 Plt Count (133 - 385 K/mm3) 171 MPV (9.1 - 12.7 fl) 11.0 Neut % (Auto) (56.5 - 79.4 %) 77.8 Lymph % (Auto) (14.3 - 34.3 %) 11.2 L [facility] % (Auto) (5.1 - 10.4 %) 9.8 Eos % (Auto) (0.1 - 3.0 %) 0.7 Baso % (Auto) (0.1 - 1.0 %) 0.2 Neut # (Auto) (K/mm3) 7.0 Lymph # (Auto) (K/mm3) 1.0 [facility] # (Auto) (K/mm3) 0.9 Eos # (Auto) (K/mm3) 0.06 Baso # (Auto) (K/mm3) 0.0 Preop H H = 10.7/32.5 Diagnosis, Assessment Plan Diagnosis, Assessment Plan Problem List/A P: 1. 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 Previous delivery, antepartum condi tion or complication 3. 39 weeks gestation of 4. Single live 5. Multiparity 6. Encounter for female sterilization procedure 7. delivery w/o mention of indication, deliv, curr hospitaliz 8. Seizure disorder during , delivered Assessment: nml progress, iron defici ency anemia Plan: routine care Consultation(s): Consultation performed: anesthesia Reason for consultation: epidural Plan discussed with: patient, spouse/partner Electronically Signed by Heather Serrano MD on 1 at 1308 Addendum 1: 06/24/20 1313 by Heather Serrano MD Please disregard "Seizure Disorder in " in the Problem List. She does not have this condition. Electronically Signed by Heather Serrano MD on 1 at 1314 RPT #:[id number] END OF REPORT 2020-06-23 10:57:00-00:00 [facility] ([facility]) OB Admission / H P REPORT#:[id number] REPORT STATUS: Signed DATE:06/23/20 TIME: 1057 PATIENT: GALEN VIERA UNIT #: [id number] [facility] AGE: 24 SEX: F ATTEND: Adore Serrano MD ADM AUTHOR: Heather Serrano MD * ALL edits or amendments must be made on the [employer] document * OB History HPI: [id number] [place] [id number] PATIENT NAME: GALEN VIERA ADMIT DATE: ACCOUNT NO: [id number] ROOM NO: AGE: 24 SEX: F ADMITTING PHYSICIAN: eHather Serrano MD ATTENDING PHYSICIAN: Heather Serrano MD ADMISSION DATE: 06/23/2020 ADMITTING DIAGNOSES: 1. Intrauterine at 39 weeks 2 days ges tation. 2. Prior section x3. 3. History of genital herpes, no current outbrea k. 4. Iron deficiency anemia complicating . 5. Multiparity. 6. Encounter for permanent bilateral tubal steri lization. HISTORY OF PRESENT ILLNESS: Galen Viera is a 24-year-old 7, para 3, AB 3 lady, last menstrual perio d 09/22/2019, LAINEY 06/28/2020, estimated gestational age on admission is 39 weeks and 2 days. She has had 3 prior section deliveries, and we planned r epeat section as is contraindicated at this point. She has also completed her f amily and requests permanent bilateral tubal sterilization at the time of sect ion. She has a history of genital herpes and had an outbreak around 36 wee ks that was treated with Valtrex, and she continues prophylactic daily Va ltrex since that time without any additional outbreaks. Her course has been fairly normal. She did have a fall in the bathtub on 05/28/2020 and had a visit in the OB ED. She had some mild low back pain after that, and evaluati on revealed normal fetus and reactive external monitoring. She did not hit her stomach or uterus. She has had several yeast infections during the treated with terconazole successfully. She has also had a very ir ritable uterus since about 35 weeks of gestation, but these have not been progressive, and she has been seen in the maternal assessment center a few times, and labo r has been ruled out. ALLERGIES: NO KNOWN DRUG ALLERGIES. MEDICATIONS: vitamins and iron. PAST SURGICAL HISTORY: 1. Primary low cervical transverse sarina laine section at 38 weeks on 07/04/2013. 2. Repeat section at 39 weeks 2 days on 02/17/2015. 3. Repeat low cervical trans verse section at 39.1 weeks on 02/16/2018. ILLNESSES: Chickenpox as a c hild, history of genital herpes type 2 diagnosed by viral culture and lesions in 08/2016. MAJOR INJURIES: None. SOCIAL HISTORY: She is single. She is a nonsmoke r. She denies drug or alcohol use. 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 OBSTETRIC AND GYNECOLOGIC HISTORY: Menarche at a ge 12 with a 28-day interval. She has a history of chlamydia in 2012, history of HPV in 2016, and history of genital herpes diagnosed in 2015. She has a hist ory of 3 spontaneous first trimester miscarriages in 08/2012, 08/2019, and 06/2019. FAMILY HISTORY: Mother with type 2 diabetes, sis ter with hypertension, and mother with breast cancer. REVIEW OF SYSTEMS: Negative x10 point review of systems except for irritable uterus with frequent [place] contractions and the expected musculoskeletal aches and discomforts of late . PHYSICAL EXAMINATION: GENERAL: She is a well-developed and well-nouris hed female. VITAL SIGNS: Blood pressure is 105/67. Weight is 143.2, pre weight is 114 pounds. Height 5 feet 2 inches. HEENT: Normocephalic and atraumatic. NECK: Supple. No thyromegaly or lymphadenopathy. CHEST: Clear to auscultation, with equal and varun ateral breath sounds. HEART: Regular rate and rhythm, without murmurs or gallops. BREASTS: Deferred as noncontributory. ABDOMEN: Soft, nontender. Good bowel sounds. No hepatosplenomegaly. No costovertebral angle tenderness. No evid ence of hernia. The uterus is soft and enlarged to 38 cm fundal height, with fe laureen heart tones auscultated in the 135 to 140 range in the right lower quadrant. SKIN: No significant lesions noted. Warm and dry . EXTREMITIES: No cyanosis, clubbing, or edema. De ep tendon reflexes are 2+ bilaterally. NEUROLOGIC/PSYCHIATRIC: She is oriented to person, time, and place, with normal mood and affect, and grossly intact neurologic e xam. PELVIC: External genitalia are clean and without lesions. The vagina is clean, well rugated, and well supported. The ce rvix is closed to exam. Uterus is soft and nontender at 38 cm fundal height. Adnexa not palpable due to uterine enlargement. Anus and perineum appear normal. RECTAL: Deferred as noncontributory. LABORATORY TESTING: Blood type A positive, antibody screen negative. Pap smear normal in 10/2019. Urine culture negat kt. HIV and syphilis testing negative in the first and third trimesters. Hepa titis B surface antigen and hepatitis C antibodies are negative. Rubella is immune. Hemoglobin A1c is normal at 4.7. Gonorrhea, chlamydia, and group B strep are negative. Ferritin level is low at 6. Third trimester blood count i s anemic with hemoglobin of 10.9 and hematocrit of 31.4, platelets are 221,0 00, 1-hour GTT is normal at 133. NIPT is negative and female gender. Hemoglobin electrophoresis is normal. AFP is negative. Gene carrier screening for cys tic fibrosis, spinal muscular atrophy, and fragile X all negative. TSH is norm al. IMPRESSION: 1. Intrauterine at 39 weeks 2 days ges tation. 2. Prior section x3. 3. History of genital herpes, no current outbrea k. 4. Iron deficiency anemia complicating . 5. Multiparity. 6. Encounter for permanent bilateral tubal steri lization. PLAN: Ms. Galen Viera is admitted for repeat vilma arean section and bilateral tubal sterilization by planned modified Du Bois technique. We have discussed the procedures of sec tion and bilateral tubal sterilization, and she is aware that there is a small risk of even after tubal sterilization th at is approximately one-half of 1%, and if she does conceive again, there is about a 50% chance that it may be a tubal that could require surgical or medical treatment . We have discussed the surgical risks for cesarea n section and tubal sterilization including but not limited to colon bleeding, blood transfusion with attendant risk of transfusion reaction and viral infections, injuries to adjacent internal organs including bowels, bladd er, fallopian tubes, ovaries, major blood vessels, and urine tubes, possible i nfection of the abdominal or uterine incision, possible h ysterectomy to control life-threatening hemorrhage, possible postoperative deep blood clots in the l egs or lungs, and anesthetic risks. Epidural anesthesia is planned as the safest for delivery. And the most common side effect is a spinal headache . We have discussed postoperative expectations and reviewed postoperative instructions for home. All her questions have be en answered to her satisfaction, and she gives informed consent for repeat section and bilateral tubal sterilization. Dictated By: Heather Serrano MD WT: HP:JOE/STARLA/MAGALIS Conf#: [id number]/DID#: [id number] Authenticated by Heather Serrano MD On 2019 07:15:36 AM at 0715 Current : Admission EGA (weeks) 39 Admission EGA (days) 2 Allergies Coded Allergies: poppyseed oil (Mild, MUNOZ NAUSEA 02/26/18) No Known Drug Allergies (06/08/20) Diagnosis, Assessment Plan Diagnosis, Assessment Plan Problem List/A P: 1. 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 Previous delivery, antepartum condi tion or complication 3. 39 weeks gestation of 4. Single live 5. Multiparity 6. Encounter for female sterilization procedure Reason-sched C section: elective repeat Consultation(s): Consultation performed: anesthesia Reason for consultation: epidural Plan discussed with: patient, spouse/partner, nu rse Electronically Signed by Heather Serrano MD on at 1104 RPT #:[id number] END OF REPORT 2020-06-23 10:39:00-00:00 [facility] OB Delivery Note REPORT#:[id number] REPORT STATUS: Signed DATE:06/23/20 TIME: 1039 PATIENT: GALEN VIERA UNIT #: [id number] ROOM/BED: [address] : 93 AGE: 24 SEX: F ATTEND: Adore Serrano MD ADM AUTHOR: Heather Serrano MD * ALL edits or amendments must be made on the el [employer]/computer document * OB Delivery Pre-delivery GBS status: GBS status: negative evaluation at delivery: NRP certified kee [place], team ( desaturation. O2 need) Admission EGA: Weeks: 39 Days: 2 EGA at delivery (wks/days): 39 weeks (2 days) Baby A Information Baby A information Delivery date: 06/23/20 Delivery time: 942 status: live born Wt of baby (grams): 3220 Wt of baby (lbs/oz): 7#2 Gender: female ("Sofía") 1 minute: 8 5 minutes: 8 Presentation: vertex (OT) Anomalies: None seen ABG details Baby A Cord blood gases: not collected Nuchal cord Baby A Nuchal cord: no Anomalies: None seen 3 vessel cord 45 second cord clamp delay Delivery section indication: elective repeat ( x 4), Patient requests permanent tubal sterilization Priority: scheduled : : contraindicated Antibiotic prior to incision: Ancef 2 grams IV preop )(SCDs applied activated: Yes Uterine incision: low transverse Uterine scar: intact Consent: indication discussed, questions answer ed, pt consent to op delivery Mother's condition: mother stable 's condition: to NICU Operative Note-Full )(Start date: 06/23/20 )(Start time: 930 (Delivery at 0943) )(Pre-procedure diagnosis: Intrauterine 39 weeks 2days Prior section x 3 Multiparity, patient requests permanent tubal st erilization Encounter for female sterilization )(Post-procedure diagnosis: same as pre-procedur e dx )(Procedures performed: Repeat low cervical transverse section Modified Pomery bilateral tubal sterilization )(Technique/Procedure: After appropriate preoperative hydration , and heart rate monitoring with reactive tracing noted, the patient is taken to the operating room and placed in the sitting position. An epidural anesthetic is placed to the appropriate surgical level. The patient is placed in the supine position with a left lateral tilt. heart tones are again auscultated an d found to be in the baseline range. A Tomas catheter is p laced under sterile conditions. The abdomen is then prepped and draped in the usual sterile fashion. "Time Out" procedure is performed and agreed upon. The skin knife is used to make a Pfannenstiel s kin incision 2 fingerbreadths above the pub ic symphysis. The subcutaneous tissue is divided the length of the incision with the deep knife. The fascia is scored with the Bovie transversely and then nicked transversely at the midline to open both layers. The fascial dissection is ex tended bilaterally in a curvilinear fashion with the Bovie cautery. The superior fascia is grasped wi th Onelhner clamps, and is dissected from the underlying rectus muscle with cautery and blunt dissection for adequate exposure. Some omentum is f ound adherent to the top of the rectus muscle in the midline, and is carefully dissected off the muscle with cautery. The piece of omentum is traced back to its origi n where it appears to be herniated through the anteri or parietal peritoneum superiorly. After dissection, this excess omentum (5x5 cm) is clamped and exci sed, and the pedicle is tied with 2-0 Vicryl suture with good hemostasis. The rectus muscle is bluntly at the midline aponeurosis. The peritone um is encountered, tented and entered with blunt finger di ssection, then extended longitudinally with cautery dissection for adequate exposure. The lower uterine segment is found to be well d eveloped. The vesicouterine peritoneum is incised transversely, and the bladder flap is gently and bluntly dissected away from the lower uterine segment, a nd further retracted with the DeLee retractor. A scoring l ow cervical transverse uterine incision is made with the knife, and this incision is deepened at the midpoint to the level of the membranes. The incision is extended in a low cer vical transverse fashion with blunt finger dissection in a cephalald/c audad manner, to avoid lateral uterine vessel laceration. Membranes are rupture s with return of clear amniotic fluid. The vertex is encountered in the occiput transve rse position. The vertex is delivered through the uterine incision with mild fundal pressure by the assistant restaurant general manager. The shoulders and body next follow an d the baby is atraumatically delivered, head down positio n, onto the mother s legs. The oropharynx and nares are well-suctioned with the bulb syringe. The cord is clamped and cut after a 45 second cord clamp delay. The vigorous and viable female infant has good cry, color, tone, grimace and heart rate shortly after del victorino and Apgars are assigned as 8 at 1 minute, and 8 at 5 minutes. The baby is found to weigh 7#2oz /3220 gm. The baby is immediately shown to the parents and then handed off to the baby nurse in attendance for further evaluation and care. Cord blood is obtained. At the parent s request, the remainder of the cord bloo d is needle-extracted for donation to the [facility]. The placenta is then delivered spontaneously, and found to be intact wi th a 3 vessel cord. Baby then had some grunting and oxygen desturat ions, requiring blow by oxygen and Team was called, and baby was assessed and transferred to NICU with Dad in attendance. The uterus is exteriorized and wrapped in a jaja st lap sponge. The uterus/ fallopian tubes and ovaries all appear normal. The uterine incision is repaired in 2 layers: the first layer is repaired with a running locked suture of 0- Vicryl, and the second layer is imbricated with a suture of 2-0 Vicryl. Hemostasis is good, and good tone has returned t o the uterine fundus. Bilateral tubal sterilization in a modified Pom eroy fashion is then performed, first on the right, then on the left. On each side, the mid ampullary segment of the tube is grasped and ede vated with a Kiester clamp. A defect is made in the underlying mesosal pinx with the cautery, and 2 free ties of 0-plain gut are passed through the defect. Th e elevated knuckle of tube is ligated proximally and distally, the knu ckle of tube is excised, and the tubal pedicles are cauterized. The same procedure is performed on both tubes. Excised tubal segments are sent to Pathology. There is g ood hemostasis in the tubal ligation site after the proc edure. The uterus is replaced into the normal pelvic position. The lateral colic gutters are well irr igated. The anterior parietal peritoneum is closed with a running suture of 2-0 Vicryl from apex to apex. The subfascial plane i s irrigated and hemostasis is obtained with the cautery. T he fascia is closed with a running suture of 0-PDS, beginning at either apex, an d meeting in the midline. The subcutaneous tissue is irrigated, and this layer is closed with a subcu taneous suture of 2-0 Vicryl, followed by a subdermal suture of 2-0 Vicryl, to bring the skin edges closer together. The final skin layer is closely reappr oximated with a subcuticular suture of 3-0 Vicryl, followed by a sterile Derm abond dressing. The patient has tolerated the procedure well. H er is with her at delivery and both have had a chance to garzon with the baby. Sponge and needle counts are reportedly correc t x 2 at the close of the case. Instrument count is reportedly correct as well. The radiofrequency pad scan for retained sponges is negative. Mother is transferred to the PACU in g ood condition, and baby is transported with Dad to the NICU, both in stable conditions )(Primary Surgeon: Heather Serrano MD )(Assistant Maintenance Manager(s): MARGOT Barber Anesthesiologist: Dr. Cate Jara )(Anesthesia: combined spinal/epi Indications: anesthesia )(Operative findings: Some extrusion of omentum on top of the rectus m uscle, apparently heriated through peritoneum. This omentum was adherent to muscle layer. Omentum was released by adhesiolysis, tr immed off and pedicle tied, and excess omentum was discarded. Normal uterus, bilateral fallopian tubes and varun ateral ovaries )(Complications: none )( Estimated blood loss (ml): 600 (per ) )(Specimens removed/altered: Bilateral tubal seg ments Drain(s)/tube(s): Tomas to gravity Fluids: Crystalloid 1800 ml Urine output: 150 ml clear Disposition: PACU, stable Counts: Sponge count: correct Instrument count: correct Needle count: correct Wound class: clean-contaminated Blood Loss/Details Blood loss at delivery: <1000 ml, no more than e xpected EBL at delivery (ml's): 600 (per surgeon ) Electronically Signed by Heather Serrano MD on 1 at 1119 [facility] #:[id number] END OF REPORT 2020-06-21 16:09:00-00:00 [id number] [facility] [address], [place] [address] PATIENT NAME: GALNE VIERA ADMIT DATE: ACCOUNT NO: [id number] ROOM NO: AGE: 24 SEX: F ADMITTING PHYSICIAN: Heather Serrano MD ATTENDING PHYSICIAN: Heather Serrano MD ADMISSION DATE: 06/23/2020 ADMITTING DIAGNOSES: 1. Intrauterine at 39 weeks 2 days ges tation. 2. Prior section x3. 3. History of genital herpes, no current outbrea k. 4. Iron deficiency anemia complicating . 5. Multiparity. 6. Encounter for permanent bilateral tubal steri lization. HISTORY OF PRESENT ILLNESS: Galen Viera is a 24-year-old 7, para 3, AB 3 lady, last menstrual perio d 09/22/2019, LAINEY 06/28/2020, estimated gestational age on admission is 39 weeks and 2 days. She has had 3 prior section deliveries, and we planned r epeat section as is contraindicated at this point. She has also completed her f amily and requests permanent bilateral tubal sterilization at the time of sect ion. She has a history of genital herpes and had an outbreak around 36 wee ks that was treated with Valtrex, and she continues prophylactic daily Va ltrex since that time without any additional outbreaks. Her course has been fairly normal. She did have a fall in the bathtub on 05/28/2020 and had a visit in the OB ED. She had some mild low back pain after that, and evaluati on revealed normal fetus and reactive external monitoring. She did not hit her stomach or uterus. She has had several yeast infections during the treated with terconazole successfully. She has also had a very ir ritable uterus since about 35 weeks of gestation, but these have not been progressive, and she has been seen in the maternal assessment center a few times, and labo r has been ruled out. ALLERGIES: NO KNOWN DRUG ALLERGIES. MEDICATIONS: vitamins and iron. PAST SURGICAL HISTORY: 1. Primary low cervical transverse sarina laine section at 38 weeks on 07/04/2013. 2. Repeat section at 39 weeks 2 days on 02/17/2015. 3. Repeat low cervical trans verse section at 39.1 weeks on 02/16/2018. ILLNESSES: Chickenpox as a c hild, history of genital herpes type 2 diagnosed by viral culture and lesions in 08/2016. MAJOR INJURIES: None. SOCIAL HISTORY: She is single. She is a nonsmoke r. She denies drug or alcohol use. 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 PATIENT NAME: GALEN VIERA 4 OBSTETRIC AND GYNECOLOGIC HISTORY: Menarche at a ge 12 with a 28-day interval. She has a history of chlamydia in 2012, history of HPV in 2016, and history of genital herpes diagnosed in 2015. She has a hist ory of 3 spontaneous first trimester miscarriages in 08/2012, 08/2019, and 06/2019. FAMILY HISTORY: Mother with type 2 diabetes, sis ter with hypertension, and mother with breast cancer. REVIEW OF SYSTEMS: Negative x10 point review of systems except for irritable uterus with frequent Butts James contractions and the expected musculoskeletal aches and discomforts of late . PHYSICAL EXAMINATION: GENERAL: She is a well-developed and well-nouris hed female. VITAL SIGNS: Blood pressure is 105/67. Weight is 143.2, pre weight is 114 pounds. Height 5 feet 2 inches. HEENT: Normocephalic and atraumatic. NECK: Supple. No thyromegaly or lymphadenopathy. CHEST: Clear to auscultation, with equal and varun ateral breath sounds. HEART: Regular rate and rhythm, without murmurs or gallops. BREASTS: Deferred as noncontributory. ABDOMEN: Soft, nontender. Good bowel sounds. No hepatosplenomegaly. No costovertebral angle tenderness. No evid ence of hernia. The uterus is soft and enlarged to 38 cm fundal height, with fe laureen heart tones auscultated in the 135 to 140 range in the right lower quadrant. SKIN: No significant lesions noted. Warm and dry . EXTREMITIES: No cyanosis, clubbing, or edema. De ep tendon reflexes are 2+ bilaterally. NEUROLOGIC/PSYCHIATRIC: She is oriented to person, time, and place, with normal mood and affect, and grossly intact neurologic e xam. PELVIC: External genitalia are clean and without lesions. The vagina is clean, well rugated, and well supported. The ce rvix is closed to exam. Uterus is soft and nontender at 38 cm fundal height. Adnexa not palpable due to uterine enlargement. Anus and perineum appear normal. RECTAL: Deferred as noncontributory. LABORATORY TESTING: Blood type A positive, antibody screen negative. Pap smear normal in 10/2019. Urine culture negat kt. HIV and syphilis testing negative in the first and third trimesters. Hepa titis B surface antigen and hepatitis C antibodies are negative. Rubella is immune. Hemoglobin A1c is normal at 4.7. Gonorrhea, chlamydia, and group B strep are negative. Ferritin level is low at 6. Third trimester blood count i s anemic with hemoglobin of 10.9 and hematocrit of 31.4, platelets are 221,0 00, 1-hour GTT is normal at 133. NIPT is negative and female gender. Hemoglobin electrophoresis is normal. AFP is negative. Gene carrier screening for cys tic fibrosis, spinal muscular atrophy, and fragile X all negative. TSH is norm al. IMPRESSION: 1. Intrauterine at 39 weeks 2 days ges tation. 2. Prior section x3. 3. History of genital herpes, no current outbrea k. 4. Iron deficiency anemia complicating . 5. Multiparity. 6. Encounter for permanent bilateral tubal steri lization. PATIENT NAME: GALEN VIERA 4 PLAN: Ms. Galen Viera is admitted for repeat vilma arean section and bilateral tubal sterilization by planned modified Du Bois technique. We have discussed the procedures of sec tion and bilateral tubal sterilization, and she is aware that there is a small risk of even after tubal sterilization th at is approximately one-half of 1%, and if she does conceive again, there is about a 50% chance that it may be a tubal that could require surgical or medical treatment . We have discussed the surgical risks for cesarea n section and tubal sterilization including but not limited to colon bleeding, blood transfusion with attendant risk of transfusion reaction and viral infections, injuries to adjacent internal organs including bowels, bladd er, fallopian tubes, ovaries, major blood vessels, and urine tubes, possible i nfection of the abdominal or uterine incision, possible h ysterectomy to control life-threatening hemorrhage, possible postoperative deep blood clots in the l egs or lungs, and anesthetic risks. Epidural anesthesia is planned as the safest for delivery. And the most common side effect is a spinal headache . We have discussed postoperative expectations and reviewed postoperative instructions for home. All her questions have be en answered to her satisfaction, and she gives informed consent for repeat section and bilateral tubal sterilization. Dictated By: Heather Serrano MD WT: HP:FLUI/STARLA/MAGALIS Conf#: [id number]/DID#: [id number] Authenticated by Heather Serrano MD On 2019 07:15:36 AM at 0715 PATIENT NAME: GALEN VIERA 4 2020-06-11 22:42:00-00:00 [id number] [facility] [address] [place] [address] PATIENT NAME: GALEN VIERA ADMIT DATE: 06/08/20 ACCOUNT NO: [id number] ROOM NO: AGE: 24 SEX: F ADMITTING PHYSICIAN: ATTENDING PHYSICIAN: Heather Serrano MD TRIAGE EVALUATION: 06/08/2020 For evaluation in OB ED on 06/08/2020 by Lillie Cordero MD, triage hospitalist per request of Dr. Serrano. HISTORY OF PRESENT ILLNESS: The patient is a 24- year-old G5, P3-0-1-3, with unsure last menstrual period , and estimated date of confinement 06/28/2020. She presented at 37 and 1/7th weeks, complaining of decreased movement beginning earlier in the day and now more concer nhan to the patient since approximately 5 p.m. She presented at 08:30 p.m. She also reported mild contractions 3/10 every 15 to 20 minutes. This h as been her baseline Avery James contraction pattern for the last f ew months. She denied vaginal bleeding or leakage of fluid. She den ied headache, vision changes, or other preeclampsia symptoms. She denied fever, chills, nausea, vomi ting, diarrhea, constipation, or dysuria. She denied cough, sore throat, short ness of breath, loss of taste or smell, fever, diarrhea, o r other COVID symptoms. She has not been tested for COVID. She reports she has been observing stay [facility] and social distancing recommendations. Her care began with Dr Abby Serrano at approximately 8 weeks' gestation. Her next visit is scheduled June 12. The has been remarkable for the Avery James contra ctions for the last 2 months, but no evidence of labor. She also repor ts recurrent yeast infections and bacterial vaginosis infection, both previous ly treated. She otherwise denies complications and reports all labs and ul trasounds normal to her knowledge. No records are available at t he time of evaluation. She was seen in the OB ED in mid May following a fall at [facility]. No evidence of labor or abruption at that time and the patient was discharged. PAST MEDICAL HISTORY: Negative. PAST SURGICAL HISTORY: section x3. ALLERGIES: NO KNOWN DRUG ALLERGIES. MEDICATIONS: vitamins, iron 1 to 2 time s per week, and valacyclovir daily for prophylaxis of herpes. OBSTETRICAL HISTORY: In 2011, first trimester sp ontaneous , not requiring D and C. In 2012, full term d elivery for nonreassuring strip, delivered of a male i nfant weighing 6 pounds 12 ounces, no complications in the , otherwise. In 2014, full term repeat without trial of labor, delivered of a fem leandro infant weighing 7 pounds 9 ounces, also without PATIENT NAME: GALEN VIERA 5 complications. In 2017, full term secti on for nonreassuring status, delivered of a male weighing 7 po unds 6 ounces, no other complications in the . GYNECOLOGIC HISTORY: Menarche at age 12 with reg ular monthly cycles lasting 5 days, moderate in amount with minimal cr amping. The patient reports history of genital herpes diagnosed shantal leal in 2016 with at least one outbreak during the current . She has been using daily Valt willie for prophylaxis since the recent resolution of outbreak. SOCIAL HISTORY: The patient denies tobacco or il licit drug use. She reports rare prepregnancy alcohol us e. She lives with her spouse, a 28-year-old healthy male and her 3 children. She does not work [employer] the home or attend school. FAMILY HISTORY: Mother by suicide. She also had hypertension and history of breast cancer bia gnosed at age 22 (the patient has been encouraged to discuss her mother's early diagnosis of breast cancer and after the , will need to begin mammograms). Father unknown h ealth history. Maternal grandmother and grandfather both from u nknown causes. No information on paternal grandparents. Th e patient was adopted out and has no information on her father or his family. The patient has one si ster, one brother. Sister has bipolar disorder and brother ADHD and anemia. e also has a half-sister with hypertension and a half-brother, with no known health problems. Her 3 children are reported as healthy. The patient denied hist ory of mental retardation or defects in her family or her spouse's fami ly. REVIEW OF SYSTEMS: A 10-point review of systems is negative except as stated above. PHYSICAL EXAMINATION: GENERAL: The patient is a we ll-nourished, well-developed white female, lying on triage stretcher in OB ED. VITAL SIGNS: Height 5 feet 3 inches, weight prio r to the 114 pounds and at most recent visit to clinic 140 pounds. Blood pressure 109/66, pulse 93, respirations 18, and temperature 98.6. HEAD AND NECK: Within normal limits without lymp hadenopathy or thyromegaly. CHEST: Clear to auscultation bilaterally. HEART: With regular rate and rhythm. BREASTS: Deferred. ABDOMEN: Soft, nontender, gravid with a fundal h eight of 38 cm. PELVIC: Closed, midposition, intact, and -3. No blood noted on exam glove. EXTREMITIES: Without edema. Bilateral patellar r eflexes, 2+. NEUROLOGIC: Nonfocal. The patient is awake, aler t, and oriented x3. NST is category 1 with basel ine heart tones in the 120s with multiple 15 x 15 accelerations, no decelerations, and contract ions every 15 to 30 minutes. BPP showed a single intrauterine pregnan cy, cephalic presentation, ESTELLA of 12.7 cm. heart rate 144 beats per minute, poste rior placenta without previa, grade II, cervix of 3.7 cm, and a biophysical pr ofile 8/8. LABORATORY DATA: No labs were indicated. ASSESSMENT AND PLAN: This is a 24-year-old G5, P3-0-1-3, at 37 and 1/7th weeks, complaining of decreased movement, and als o Butts James contractions, but at her baseline for the last 2 to 3 months. She has a history of 3 prior PATIENT NAME: GALEN VIERA 5 C-sections, a history of herpes-now on daily pro phylaxis without lesions or prodrome. She is discharged home in stable condi tion with reassuring status, 10 out of 10 on the biophysical profile with category 1 NST. She is given labor precautions and is to return for vaginal bleeding, leakage of fluid, decreased movements, or increased force an d frequency of contractions. She is to follow up on June 12 as scheduled. She is to drink greater than 100 ounces of water daily and eat freque nt small meals. She is to perform kick counts nightly and call or return for le ss than 10 kicks in 2 hours. She is to continue her Valtrex daily and to call for furth er lesions or prodrome. Dictated By: Lillie Cordero MD WT: HP:JOE/SAHIL/NTS Conf#: [id number]/DID#: [id number] Authenticated and Edited by Lillie Cordero MD On 07/01/20 8:36:54 AM Electronically Signed by Lillie Cordero MD on at 0842 PATIENT NAME: GALEN VIERA 5 2020-05-28 15:39:00-00:00 [id number] [facility] [address] [id number] PATIENT NAME: GALEN VIERA ADMIT DATE: 05/28/20 ACCOUNT NO: [id number] ROOM NO: AGE: 24 SEX: F ADMITTING PHYSICIAN: ATTENDING PHYSICIAN: Jerald Mccollum MD TRIAGE EVALUATION: 05/28/2020 Patient seen for evaluation in OB ED on 05/28/20, by Lillie Cordero MD, triage hospitalist, per request of Dr. Serrano. HISTORY OF PRESENT ILLNESS: The patient is a 24- year-old G5, P3-0-1-3, with unsure last menstrual period , and estimated date of confinement 06/28/2020. She presented to the main [facility] Room at 35-4/7th weeks complaining of a fall at 8:00 p.m. on the . She was cleared i n the main ER and transferred to OB ED for further evaluation. Dr. Serrano requested 2 hours of monitoring, but no labs. The patient is known to be blood type A po sitive. She denied vaginal bleeding or leakage of fluid. She reported incre ase in frequency of contractions to approximately every 8 mi nutes for a total of 3 hours after the fall, but then returned to her baseline of Butts James contractions every 20 minutes. She states the cont ractions are every 20 minutes currently at the time of evaluation. She states she slipped in the shower. She did not hit her head. She did hit her back, but not her abdome n. She states in addition to the lower back and buttocks she also hit her left leg and right arm. She denied feeling dizzy or having a syncopal episode prior to the slip and fall. She currently denies headache, vision changes, or other preecl ampsia symptoms. She denies fever, chills, nausea, vomit ing, diarrhea, constipation, or dysuria. She denies COVID symptoms. Her care has been with Dr. Serrano beginning at approximately 8 weeks' gestation. Her next visit is scheduled for the . The has been remarkable for the Braxto n James contractions, but no prior evidence of labor. She als o reports pelvic pain and a history of recurrent yeast infections and is currently bein g treated for bacterial vaginosis. Otherwise, she denies complications a nd reports all labs and ultrasounds normal to her knowledge. No records are available at the time of evaluation. PAST MEDICAL HISTORY: Negative. PAST SURGICAL HISTORY: section x3. ALLERGIES: NO KNOWN DRUG ALLERGIES. MEDICATIONS: vitamins, iron every 1 to 2 days and Flagyl day #5 of 7 on a script for bacterial vaginosis. ALLERGIES: NO KNOWN DRUG ALLERGIES. OBSTETRICAL HISTORY: In 2011, first trimester sp ontaneous , not PATIENT NAME: GALEN VIERA 53 requiring D and C. In 2012, full term section for nonreassuring strip, delivered of a male w eighing 6 pounds 12 ounces, no complications in the . In 2014, full ter m repeat without trial of labor, delivered of a female weighing 7 pounds 8 ounces, a lso without complications. In 2017, full term sec tion for nonreassuring status, delivered of a male weighing 7 pounds 6 ounces. No earli er complications in the . GYNECOLOGIC HISTORY: Menarche at age 12 with reg ular monthly cycles lasting 5 days, moderate in amount with minimal cr amping. The patient reports history of genital herpes, first in with a current lesion noted 2 days prior. She ran out of medications earlier a nd has not used anything with the current outbreak. She was to begin daily proph ylaxis with her visit on the . She did not call to request medications be sent earlier. SOCIAL HISTORY: The patient denies tobacco or il licit drug use. She reports rare prepregnancy alcohol us e. She lives with her spouse, a 27-year-old healthy male, and her 3 children. She does not w ork outside the home or attend school. FAMILY HISTORY: Mother with suicide. e also had hypertension and a history of breast cancer diagnosed at age 22 ( patient was encouraged to discuss her mother's early diagnosis of breast c ancer and after the will need to begin mammogram). Father unknown he alth history. Maternal grandmother and grandfather both from u nknown causes. No information on paternal grandparents. patient was adopted out and has no information on her father or his family. The patient has 1 sist er, 1 brother. The sister has bipolar disorder. The brother ADHD and a nemia. She also has a half-sister with hypertension and a half-brother with no known he alth problems. Her 3 children are reported as healthy. The patient denies hist ory of mental retardation or defects in her family or her spouse's fami ly. REVIEW OF SYSTEMS: A 10-point review of systems is negative except as stated above. PHYSICAL EXAMINATION: GENERAL: The patient is a we ll-nourished, well-developed white female, lying on triage stretcher in OB ED. VITAL SIGNS: Height 5 feet 3 inches, weight prio r to the 114 pounds and most recent weight 139-1/2 pounds. Blood pre ssure 109/63, pulse 107, respirations 18, and temperature 98.2. HEAD AND NECK: Within normal limits without lymp hadenopathy or thyromegaly. CHEST: Clear to auscultation bilaterally. HEART: With regular rate and rhythm. BREASTS: Deferred. ABDOMEN: Soft, nontender, gravid with a fundal h eight of 35 cm. BACK: No evidence of bruising, lacerations or co ntusions. PELVIC: Long, closed, posterior. No blood noted on the glove. Initially pelvic exam was not anticipa abe; however, after evaluation, the patient reported that she was feeling cramping every few minutes, so the exam was performed. EXTREMITIES: Mild pedal edema. DTRs 2+ bilateral ly. NEUROLOGIC: Nonfocal. The patient is awake, aler t, and oriented x3. NST is category 1 with baseline heart tone s in the 130s to 140s range, occasional 15 x 15 accelerations, no deceleratio ns, and at the time of PATIENT NAME: GALEN VIERA 5 evaluation-no contractions. A short time later, she was noted to have uterine irritability. She was invited to sherrie wh at she felt were contractions. She was marking every 2 to 3 minutes; however, no contra ctions were noted at those times. With readjustment of monitor, she was see n to have 2 contractions, which were 16 minutes apart. ASSESSMENT AND PLAN: 24 year old at 35 4/7 weeks, following a fall. work up without evidence of abruption or labor. I spoke to Dr. Serrano. She stated that the patient has had con tractions frequently in the recent weeks, but has never had cervical change. She wished to continue with the plan to discharge the patient home for follo wup on the following day. She is to call or return for vaginal bleeding, leaka ge of fluid, decreased movements on kick counts or otherwise or for con tractions with increasing force and frequency. She is to use Tylenol and/o r heat for the discomfort in her back and extremities. She is to drink greate r than 100 ounces of water daily and eat frequent small meals. She is to co ntinue her Flagyl and her other usual medications. I discussed the patient 's herpes lesions-Dr. Serrano did not realize that the patient was out of medications nor did she know the patient had a lesion. She requested the patient be given a script at discharge for Valtrex to use twice daily for 3 d ays and to follow up with Dr. Serrano as scheduled tomorrow. She is given a ki ck count sheet and instructions both verbal, as well as written ins tructions for kick counts. She is to call immediately for less than 10 kick s in 2 hours, or for other concerns including vaginal bleeding, leakage of fluid, decreased movement, contractions with increased force and frequency. The patient is also to call if pharmacy does not supply Valtrex for nonformulary or other reasons. She is not to wait until her appointmen t tomorrow to notify Dr. Serrano that she did not start the antiviral. Dictated By: Lillie Cordero MD WT: HP:JOE/SHAYYI/NTS Conf#: [id number]/DID#: [id number] Authenticated and Edited by Lillie Cordero MD On 06/08/20 9:37:49 AM Electronically Signed by Lillie Cordero MD on at 1544 PATIENT NAME: GALEN VIERA 5 2020-05-28 12:00:00-00:00 [facility] ([facility]) EMERGENCY PROVIDER REPORT REPORT#:[id number] REPORT STATUS: Signed DATE:05/28/20 TIME: 1200 PATIENT: GALEN VIERA UNIT #: [id number] ROOM/BED: AGE: 24 SEX: F PCP PHYS: Heatehr Serrano MD SERVICE AUTHOR: Jet Mccollum MD * ALL edits or amendments must be made on the el [employer]/computer document * HPI-General Illness General Initial Greet Date/Time 05/28/20 1144 Presentation Chief Complaint Abdominal pain Context Additional Context 24 years old patient 35 weeks preg nant yesterday slipt and fell onto her back now having intermittent contractions every 20 minutes, reports active movements, no vaginal bleeding, no leakage of fl uid, no any other traumas or complaints. Review of Systems ROS Statements All systems rev neg except as marked. Free Text ROS Notes Free Text ROS Notes CONSTITUTIONAL: Normal; negative for fev er, weight change, fatigue, or aching. HEENT: Eyes normal; negative for, irritation, or visual field defects. Ears normal; Negative for pain . Nose normal; Negative for runny nose, sinus problems , or nosebleeds. Mouth normal; Negative for dent al problems,. Throat normal; Negative for hoarseness, difficulty swallowing, or sore throat. CARDIOVASCULAR: Normal; Negative for chest pain or, high blood pressure, orthopnea, PULMONARY: Normal; Negative for cough, sputum, shortness of breath or wheezing, GENITOURINARY: Negative for incontinence, UTI, d ysuria, hematuria, vaginal discharge, abnormal bleeding. SKIN: Normal; Negative for rashes. MUSCULOSKELETAL: Normal; Negative for back pain, joint pain. NEUROLOGIC: Normal; Negative for blackouts, head aches, seizures or dizziness. PSYCHIATRIC: Normal; Negative for anxiety, depre ssion, or phobias. ENDOCRINE: Normal; Negative for diabetes, thyroid.HEMATOLOGIC/LYMPHATIC: Normal; Negative for anemia, swollen glands, or blood di sorders. IMMUNOLOGIC: Negative; Negative for steroids, ch emotherapy, or cancer. VASCULAR: Normal; Negative for varicose veins, b lood clots, or leg ulcers. Past Medical History - Adult Stated Complaint SLIPPED IN SHOWER, 35WKS 4DYS Allergies Coded Allergies: poppyseed oil (Mild, MUNOZ NAUSEA 02/26/18) Home Medications Active Scripts HYDROcodone/APAP (NORCO 10/325) 1-2 TAB PO Q6H P RN PRN MODERATE POSTOP PAIN HYDROcodone/APAP (NORCO 10/325) 1-2 TAB PO Q6H PRN PRN MODERATE POSTOP PAIN #40 TAB Prov: 02/28/18 IBUPROFEN (MOTRIN) 600 MG PO Q6H PRN PRN PAIN SC LEANDRO 1-3 (USE 1ST) IBUPROFEN (MOTRIN) 600 MG PO Q6H PRN PRN PAIN S MEKA 1-3 (USE 1ST) #60 TAB Ref 1 Prov: 02/28/18 Reported Medications PNV/FE FUM/FA ( MULTIVITAMIN) 1 TAB PO D AILY {FERROUS FUMARATE} ({FERROCITE}) 324 MG PO DAILY Review of Nursing Notes Rev avail, and agree Physical Exam Vital Signs Vital Signs First Documented: Result Date Time Pulse Ox 99 05/28 1155 B/P 120/65 05/28 1155 B/P Mean 83 05/28 1155 O2 Delivery Room air 05/28 1155 Temp 36.8 05/28 1155 Pulse 112 05/28 1155 Resp 05/28 1155 Last Documented: Result Date Time Pulse Ox 99 05/28 1155 B/P 120/65 05/28 1155 B/P Mean 83 05/28 1155 O2 Delivery Room air 05/28 1155 Temp 36.8 05/28 1155 Pulse 112 05/28 1155 Resp 05/28 1155 Review of Vital Signs Reviewed, Vital signs norm al Basic Physical Exam Basic PE GEN: Well appearing/NAD, HEAD: Atraumat ic/NC, ENT: Membranes moist, NECK: Supple, CV: Reg rate rhythm, EXT: No gross abnormality, SKIN: No rashes, warm/dry Physical Exam Abdomen/GI Text/Dict Notes fhr 153 Patient Discharge Departure Vital Signs/Condition Vital Signs First Documented: Result Date Time Pulse Ox 99 05/28 1155 B/P 120/65 05/28 1155 B/P Mean 83 05/28 1155 O2 Delivery Room air 05/28 1155 Temp 36.8 05/28 1155 Pulse 112 05/28 1155 Resp 05/28 1155 Last Documented: Result Date Time Pulse Ox 99 05/28 1155 B/P 120/65 05/28 1155 B/P Mean 83 05/28 1155 O2 Delivery Room air 05/28 1155 Temp 36.8 05/28 1155 Pulse 112 09/16 1155 Resp 17 05/28 1155 All vital signs available at the time of this en try have been reviewed. Condition Stable Clinical Impression Clinical Impression Primary Impression: Cramping affecting , antepartum Time of Impression 1200 Disposition Decision Discharge )( Discharged to Home mac unit )( Time 1200 )( Date 05/28/20 Discharge/Care Plan Referrals Heather Serrano MD (PCP/Family) at 1436 RPT #:[id number] END OF REPORT
[2023-05-11 14:54] LABS: Absolute Lymphocytes (CBC) 1.8 K/uL (0.7-4.9); Hematocrit 35.4 % (36.0-45.0); MCV 91.6 fL (80-100); Platelets 217 thou/uL (152-406); RBC Red Blood Cell Count 3.86 M/uL (3.86-4.86)
[2023-05-11] MEDS ORDERED: MECLIZINE HCL 12.5 MG TAB ONE (14:54)
[2023-05-11] MEDS ORDERED: NA CHLORIDE 0.9% 1,000 ML ONE (14:54)
[2023-05-11 15:11] LABS: Potassium 3.3 mEq/L (3.5-5.1); Troponin High Sensitivity 3.8 pg/mL (<58.9)
--- NOTE | 2023-05-11 15:27 | RAD REPORT ---
EXAM DESCRIPTION: CT - Head Brain Wo Cont - 05/11/2023 2:53 pm CLINICAL HISTORY: dizziness COMPARISON: none TECHNIQUE: Computed axial tomography of the head was obtained. IV contrast was not requested. All CT scans are performed using dose optimization technique as appropriate and may include automated exposure control or mA/KV adjustment according to patient size. FINDINGS: An intracranial bleed is not seen The ventricles are normal in caliber No significant hypodense areas within the brain visualized No extra-axial fluid collection is noted. Fluid within the sinuses/ mastoids is not seen IMPRESSION: No acute intracranial abnormality is seen If patient's symptoms persist MRI of the brain would be recommended
--- NOTE | 2023-05-11 15:32 | RAD REPORT ---
EXAM DESCRIPTION: CT - Soft Tissue Neck W/Contr - 05/11/2023 2:53 pm CLINICAL HISTORY: Neck pain with sore throat . Neck swelling COMPARISON: None. TECHNIQUE: Computed axial tomography of the neck was obtained. 100 cc Isovue 300 was administered i ntravenously. Coronal and sagittal reconstruction was performed. All CT scans are performed using dose optimization technique as appropriate and may include automated exposure control or mA/KV adjustment according to patient size. FINDINGS: The pharynx, tongue base, larynx and subglottic trachea appear unremarkable The parotid, submandibular and thyroid glands appear unremarkable. No lymphadenopathy is seen No fluid within the sinuses/mastoids IMPRESSION: No significant abnormality is displayed
--- NOTE | 2023-05-11 16:31 | EDPHYS ---
Physician Documentation [facility] Name: Antelmo Townsend Age: 27 yrs Sex: Female : 1995 Arrival Date: 05/11/2023 Time: 13:50 Bed 8 Private MD: ED Physician Isabel Stafford HPI: 05/11 14:10 This 27 yrs old Female presents to ER via Ambulatory with complaints of Dizziness, Lump cp In Neck. 14:10 The patient presents with dizziness, lightheadedness. cp 14:10 Onset: The symptoms/episode began/occurred today, while at work. cp Historical: - Allergies: 15:04 No Known Allergies; aa5 - Home Meds: 14:01 valcycovir [Active]; ap3 - PMHx: 14:01 Anxiety; Herpes simplex; ap3 - PSHx: 14:01 section; Ligation of fallopian tube; ap3 - Immunization history:: Client reports receiving the 2nd dose of the Covid vaccine. - Social history:: Smoking status: Patient denies any tobacco usage or history of. ROS: 14:15 Constitutional: Negative for body aches, chills, fever, poor PO intake. cp 14:15 Eyes: Negative for injury, pain, redness, and discharge. cp 14:15 Neck: Positive for swelling, tenderness, Negative for injury or acute deformity. 14:15 Cardiovascular: Negative for chest pain, palpitations. 14:15 Respiratory: Negative for cough, shortness of breath, wheezing. 14:15 Abdomen/GI: Negative for abdominal pain, nausea, vomiting, and diarrhea. 14:15 : Negative for urinary symptoms. 14:15 Neuro: Positive for dizziness, Negative for altered mental status, headache, syncope, weakness. 14:15 All other systems are negative. Exam: 14:20 Constitutional: The patient appears in no acute distress, alert, awake, cp non-diaphoretic, non-toxic, well developed, well nourished. 14:20 Head/Face: Normocephalic, atraumatic. cp 14:20 Eyes: Periorbital structures: appear normal, Conjunctiva: normal, no exudate, no injection, Sclera: no appreciated abnormality, Lids and lashes: appear normal, bilaterally. 14:20 ENT: External ear(s): are unremarkable, Ear canal(s): are normal, clear, TM's: dullness, bilaterally, Nose: is normal, Mouth: Lips: moist, Oral mucosa: pink and intact, moist, Posterior pharynx: is normal, airway is patent, no erythema, no exudate, Voice: is normal. 14:20 Neck: External neck: area of mild swelling, tenderness to palpation noted anterior right mid lateral neck, ROM/movement: limited range of motion, is not appreciated, Meningeal signs: are not present. 14:20 Chest/axilla: Inspection: normal, Palpation: is normal, no crepitus, no tenderness. 14:20 Cardiovascular: Rate: normal, Rhythm: regular, JVD: is not appreciated. 14:20 Respiratory: the patient does not display signs of respiratory distress, Respirations: normal, no use of accessory muscles, no retractions, Breath sounds: are clear throughout, no decreased breath sounds, no stridor, no wheezing. 14:20 Abdomen/GI: Inspection: abdomen appears normal, Palpation: abdomen is soft and non-tender, in all quadrants. 14:20 Back: pain, is absent, ROM is normal. 14:20 Skin: no rash present. 14:20 Neuro: Orientation: to person, place \T\ time. Mentation: is normal, Cerebellar function: is grossly normal, Motor: no acute changes, moves all fours, Sensation: no obvious gross deficits, Gait: is steady, at a normal pace, without difficulty. 14:36 ECG was reviewed by the Attending Physician. cp Vital Signs: 14:00 BP 118 / 65; Pulse 75; Resp 17; Temp 98.4; Pulse Ox 100% ; Weight 51.71 kg; Height 5 ap3 ft. 3 in. ; Pain 0/10; 14:10 BP 101 / 64 Supine; Pulse 81; aa5 14:12 BP 110 / 73 Sitting; Pulse 92; aa5 14:14 BP 115 / 77 Standing; Pulse 102; aa5 15:20 BP 120 / 82; Pulse 76; Resp 17; Pulse Ox 99% on R/A; rs5 16:35 BP 117 / 75; Pulse 74; Resp 17; Pulse Ox 98% on R/A; rs5 14:00 Body Mass Index 20.19 (51.71 kg, 160.02 cm) ap3 14:00 Pain Scale: Adult ap3 MDM: 14:09 Patient medically screened. cp 16:30 Data reviewed: vital signs, nurses notes, lab test result(s), EKG, radiologic studies, cp CT scan. 16:30 Counseling: I had a detailed discussion with the patient and/or guardian regarding the cp historical points, exam findings, and any diagnostic results supporting the discharge/admit diagnosis, lab results, radiology results, to return to the emergency department if symptoms worsen or persist or if there are any questions or concerns that arise at home. 05/11 14:10 Order name: Basic Metabolic Panel; Complete Time: 16:15 cp 05/11 16:16 Interpretation: Normal except: K 3.3; CL 109; GFR 88. cp 05/11 14:10 Order name: CBC with Diff; Complete Time: 16:15 cp 05/11 16:16 Interpretation: Normal except: HCT 35.4. cp 05/11 14:10 Order name: Troponin HS; Complete Time: 16:15 cp 05/11 14:28 Order name: CT Soft Tissue Neck W/contr; Complete Time: 16:15 cp 05/11 14:28 Order name: CT Head Brain wo Cont; Complete Time: 16:15 cp 05/11 14:10 Order name: EKG; Complete Time: 14:11 cp 05/11 14:09 Order name: Orthostatics; Complete Time: 14:16 cp 05/11 14:10 Order name: Cardiac monitoring; Complete Time: 14:40 cp 05/11 14:10 Order name: EKG - Nurse/Tech; Complete Time: 14:40 cp 05/11 14:10 Order name: IV Saline Lock; Complete Time: 14:40 cp 05/11 14:10 Order name: Labs collected and sent; Complete Time: 14:40 cp 05/11 14:10 Order name: O2 Per Protocol; Complete Time: 14:40 cp 05/11 14:10 Order name: O2 Sat Monitoring; Complete Time: 14:40 cp EC:36 Rate is 86 beats/min. Rhythm is regular. KS interval is normal. QRS interval is normal. cp QT interval is normal. T waves are Inverted in lead aVR. Interpreted by me. Reviewed by me. Administered Medications: 15:04 Drug: NS 0.9% IV 1000 ml Route: IV; Rate: 1 bolus; Site: right antecubital; aa5 16:20 Follow up: IV Status: Completed infusion; IV Intake: 1000ml aa5 15:04 Drug: Meclizine PO 25 mg Route: PO; aa5 16:20 Follow up: Response: No adverse reaction aa5 Disposition Summary: 05/11/23 16:30 Discharge Ordered Location: Home cp Problem: new cp Symptoms: have improved cp Condition: Stable cp Diagnosis - Dizziness and giddiness cp - Localized swelling, mass and lump, neck cp Followup: cp - With: Antonia Carvalho MD - When: 7 - 10 days - Reason: Recheck today's complaints Discharge Instructions: - Discharge Summary Sheet cp - Dizziness cp Forms: - Medication Reconciliation Form cp - Thank You Letter cp - Antibiotic Education cp - Prescription Opioid Use cp - Patient Portal Instructions cp - Leadership Thank You Letter cp Prescriptions: - Amoxicillin 875 mg Oral Tablet - take 1 tablet by ORAL route every 12 hours for 10 days; 20 tablet; Refills: 0, cp Product Selection Permitted - Ibuprofen 600 mg Oral Tablet - take 1 tablet by ORAL route every 8 hours As needed take with food; 30 tablet; cp Refills: 0, Product Selection Permitted - Meclizine 25 mg Oral Tablet - take 1 tablet by ORAL route every 8 hours As needed; 30 tablet; Refills: 0, cp Product Selection Permitted Signatures: Dispatcher [employer] Meghan Dee, RN RN aa5 Pardeep Hawkins PA PA cp Prokisch, Amanda RN RN ap3
--- NOTE | 2023-05-11 16:31 | ER ---
Nurse's Notes [facility] Name: Antelmo Townsend Age: 27 yrs Sex: Female : 1995 Arrival Date: 05/11/2023 Time: 13:50 Bed 8 Private MD: Diagnosis: Dizziness and giddiness;Localized swelling, mass and lump, neck Presentation: 05/11 14:00 Chief complaint: Patient states: she has had a lump in her neck that is hindering her ap3 swallowing for approx one week. patient also states that she has gotten dizzy a few times today, especially when she turns her head from side to side. Coronavirus screen: At this time, the client does not indicate any symptoms associated with coronavirus-19. Ebola Screen: No symptoms or risks identified at this time. Initial Sepsis Screen: Does the patient meet any 2 criteria? No. Patient's initial sepsis screen is negative. Does the patient have a suspected source of infection? No. Patient's initial sepsis screen is negative. Risk Assessment: Do you want to hurt yourself or someone else? Patient reports no desire to harm self or others. Onset of symptoms was May 04, 2023. 14:00 Method Of Arrival: Ambulatory ap3 14:00 Acuity: MARK 3 ap3 Triage Assessment: 14:03 General: Appears in no apparent distress. Behavior is calm, cooperative, appropriate ap3 for age. Pain: Denies pain. Neuro: Level of Consciousness is awake, alert, obeys commands, Oriented to person, place, time, situation, Appropriate for age. Cardiovascular: Patient's skin is warm and dry. Respiratory: Airway is patent Respiratory effort is even, unlabored, Respiratory pattern is regular, symmetrical. Historical: - Allergies: 15:04 No Known Allergies; aa5 - Home Meds: 14:01 valcycovir [Active]; ap3 - PMHx: 14:01 Anxiety; Herpes simplex; ap3 - PSHx: 14:01 section; Ligation of fallopian tube; ap3 - Immunization history:: Client reports receiving the 2nd dose of the Covid vaccine. - Social history:: Smoking status: Patient denies any tobacco usage or history of. Screenin:03 [facility] ED Fall Risk Assessment (Adult) History of falling in the last 3 months, ap3 including since admission No falls in past 3 months (0 pts). Abuse screen: Denies threats or abuse. Nutritional screening: No deficits noted. Tuberculosis screening: No symptoms or risk factors identified. Assessment: 14:10 General: Appears uncomfortable, Behavior is calm, cooperative. Pain: Denies pain. 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 Speech is normal, Facial symmetry appears normal, Pupils are PERRLA, Reports dizziness. Cardiovascular: Heart tones S1 S2 present Rhythm is regular. Respiratory: Airway is patent Respiratory effort is even, unlabored, Respiratory pattern is regular, symmetrical. GI: Abdomen is flat, non-distended, Abd is soft and non tender X 4 quads. Patient currently denies diarrhea, nausea, vomiting. : No signs and/or symptoms were reported regarding the genitourinary system. EENT: Reports lump to anterior aspect of right side of neck, pt states "it just feels like a lump in my throat" . Derm: Skin is pink, warm \\T\\ dry. Musculoskeletal: Range of motion: intact in all extremities. 15:00 Reassessment: Patient and/or family updated on plan of care and expected duration. Pain aa5 level reassessed. Patient is alert, oriented x 3, equal unlabored respirations, skin warm/dry/pink. Pt back from radiology, given warm blankets for comfort. . 16:20 Reassessment: Patient is alert, oriented x 3, equal unlabored respirations, skin aa5 warm/dry/pink. Patient states feeling better. Patient states symptoms have improved. Vital Signs: 14:00 BP 118 / 65; Pulse 75; Resp 17; Temp 98.4; Pulse Ox 100% ; Weight 51.71 kg; Height 5 ap3 ft. 3 in. ; Pain 0/10; 14:10 BP 101 / 64 Supine; Pulse 81; aa5 14:12 BP 110 / 73 Sitting; Pulse 92; aa5 14:14 BP 115 / 77 Standing; Pulse 102; aa5 15:20 BP 120 / 82; Pulse 76; Resp 17; Pulse Ox 99% on R/A; rs5 16:35 BP 117 / 75; Pulse 74; Resp 17; Pulse Ox 98% on R/A; rs5 14:00 Body Mass Index 20.19 (51.71 kg, 160.02 cm) ap3 14:00 Pain Scale: Adult ap3 ED Course: 13:51 Patient arrived in ED. rg4 13:52 Pardeep Hawkins PA is PHCP. cp 13:52 Isabel Stafford MD is Attending Physician. cp 14:01 Triage completed. ap3 14:03 Arm band placed on right wrist. ap3 14:06 Meghan Reyna RN is Primary Nurse. aa5 14:10 Patient has correct armband on for positive identification. Placed in gown. Bed in low aa5 position. Call light in reach. Side rails up X2. Client placed on continuous cardiac and pulse oximetry monitoring. NIBP monitoring applied. 14:40 Initial lab(s) drawn, by me, sent to lab. Inserted saline lock: 20 gauge in right aa5 antecubital area, using aseptic technique. Blood collected. 14:55 CT Soft Tissue Neck W/contr In Process Unspecified. EDMS 14:55 CT Head Brain wo Cont In Process Unspecified. EDMS 16:29 Antonia Carvalho MD is Referral Physician. cp 16:45 No provider procedures requiring assistance completed. IV discontinued, intact, rs5 bleeding controlled, No redness/swelling at site. Pressure dressing applied. Administered Medications: 15:04 Drug: NS 0.9% IV 1000 ml Route: IV; Rate: 1 bolus; Site: right antecubital; aa5 16:20 Follow up: IV Status: Completed infusion; IV Intake: 1000ml aa5 15:04 Drug: Meclizine PO 25 mg Route: PO; aa5 16:20 Follow up: Response: No adverse reaction aa5 Medication: 15:12 VIS not applicable for this client. aa5 Intake: 16:20 IV: 1000ml; Total: 1000ml. aa5 Outcome: 16:30 Discharge ordered by MD. cp 16:45 Discharged to home ambulatory. rs5 16:45 Condition: stable 16:45 Discharge instructions given to patient, Instructed on discharge instructions, follow up and referral plans. medication usage, Demonstrated understanding of instructions, follow-up care, medications, Prescriptions given X 3. 16:50 Patient left the ED. rs5 Signatures: Dispatcher [employer] EDMS Meghan Reyna RN RN aa5 Pardeep Hawkins PA PA cp Garcia, Rubi rg4 Brittany Pride, RN RN ap3 Ari Lind, RN RN rs5
[2023-05-11 16:59] VITALS: TEMP 98.4; O2SAT 100
[2023-05-11 17:15] VITALS: BP 115/77
--- NOTE | 2023-05-12 12:05 | EKG ---
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
== END 2023-05-11 16:50 | disposition home or self-care (01) ==
LOC: ER 13:50
DX: R42 Dizziness and giddiness (principal); R22.1 Localized swelling, mass and lump, neck
CPT/HCPCS: 36415; 70450; 70491; 80048; 84484; 85025; 93005; J7030; J8597; Q9967

== ENCOUNTER 2023-06-22 18:25 | Emergency (ER) | payer SELFPAY ==
--- OUTSIDE RECORDS SUMMARY | 2023-06-22 18:29 | XMS REPORT | Continuity of Care Document ---
:1995 Author Organization [facility] t Address [address] [facility] [address] [place] [address] Care Team Providers Name Role Phone PCP, PATIENT DOES NOT HAVE A Primary Care Physician UnavailHeather Richard Attending Clinician Unavailable FROILAN HUGHES Attending Clinician Unavailable Froilan Hughes MD Attending Clinician Jerald Mccollum Attending Clinician Unavailable Rita Valdivia Attending Clinician [phone] RITA LATIF Attending Clinician Unavailable Doctor Unassigned, [place] Attending Clinician Unavailable Heather Serrano Admitting Clinician Unavailable Payers Payer Name Policy Type Policy Number Effective Date Expiration Date S ource [place]ID [place] [id number] 2019 00:00:00 Problems Condition Condition Condition Status Onset Resolution Last Treating Co mments Source Name Details Category Date Date Treatment Clinician Date Yeast Yeast Disease Active Univers infection infection 2-21 ity of 00:00: [address] Branch Supervisio Supervisio Disease Active 2019- U nivers n of n of 2-13 ity of high-risk high-risk 00[place] 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 Suppressi on at 36 weeks History of History of Disease Active 2013-09 Overview : Univers 09-15 Formattin ity of section section 00:00: g of this [place] 00 note Medical might be Branch different from the original. 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 Allergies, Adverse Reactions, Alerts Allergy Allergy Status Severity Reaction(s) Onset Inactive Treating Comm ents Source Name Type Date Date Clinician No Known DA Active U 0 [facility] [place] No Known DA Active U 0 [facility] [place] FA Active DE [facility] d oil 617 [facility] 00:[facility]: [facility] [place] FA Active DE MUNOZ NAUSEA [facility] d oil 6-17 [facility] 00:[facility]: [facility] [place] NO KNOWN Drug Active Univers ALLERGIE Class ity of S [facility] Social History Social Habit Start Date Stop Date Quantity Comments Source ASSERTION 2019-10-06 University of 00:00:00 [facility] Sexual orientation Univer [facility] Alcohol intake 2020-09-20 2020-09-20 Current University of 00:00:00 00:00:00 non-drinker of [facility] alcohol Branch (finding) History of Social 2020-04-17 2020-04-17 Univers ity of function 00:00:00 00:00:00 [facility] Tobacco use and 2012-11-08 2012-11-08 Smokeless Universit y of exposure 00:00:00 00:00:00 tobacco non-user [facility] Sex Assigned At [birth year] Universit y of 00:00:00 00:00:00 [facility] Smoking Status Start Date Stop Date Source Never smoked tobacco [facility] Medications Ordered Filled Start Stop Current Ordering Indication Dosage Frequency Signature Comments Components Source Medication Medication Date Date Medication? Clinician (SIG) Name Name iohexol 2022-09- No [id number] 70mL 70 mL, Uni vers (OMNIPAQUE 0-07 -07 Intravenou it y of 350 BULK-75 21:15: 20:57 s, ONCE, 1 [place] mL) 00 :00 dose, On Medical injection Sat Branch 70 mL 06/18/23 at 1615, Routine NaCl 0.9% 2022-09- No 1000mL at 999 Uni vers (NS) bolus 0-07 -08 mL/hr, ity of infusion 19:45: 00:57 1,000 mL, [place] as 1,000 mL 00 :00 IV Medical Piggyback, Branch ONCE, 1 dose, On 06/18/23 at 1445, ZULAY terconazole 2020- No [id number] 1{appli Insert 1 Univers 0.4 % 2-21 02-25 cator} Applicator ity o f vaginal 00:00: 05:59 into [place] cream 00 :00 vagina at [facility] for 3 days. terconazole 2020- No [id number] 1{appli Insert 1 Univers 0.4 % 2-21 02-25 cator} Applicator ity o f vaginal 00:00: 05:59 into [place] cream 00 :00 vagina at [facility] bedtime [place] for 3 days. 2013-09 Yes [id number] 1{tbl} Take 1 Tab Univers multivitami 0-07 by mouth ity of n ( 00:00[place]. [place] V[place] 00 Medical tablet Branch 2013-09 Yes [id number] 1{tbl} Take 1 Tab Univers multivitami 0-07 by mouth ity of n ( 00:00[place] VIT[place] 00 Medical tablet Branch 2013-09 Yes [id number] 1{tbl} Take 1 Tab Univers multivitami 0-07 by mouth ity of n ( 00:[place] VIT[place] 00 Medical tablet Branch 2013-09 Yes [id number] 1{tbl} Take 1 Tab Univers multivitami 0-07 by mouth ity of n ( 00:[place] VIT[place] 00 Medical tablet [place] 2013-09 Yes [id number] 1{tbl} Take 1 Tab Univers multivitami 0-07 by mouth ity of n ( 00:[place] VIT[place] 00 Medical tablet [place] 2013-09 Yes [id number] 1{tbl} Take 1 Tab Univers multivitami 0-07 by mouth ity of n ( 00:00[place]. [place] VITAM[place] 00 Medical tablet [place] 2013-09 Yes [id number] 1{tbl} Take 1 Tab Univers multivitami 0-07 by mouth ity of n ( 00:00[place] VIT[place] 00 Medical tablet [place] 2013-09 Yes [id number] 1{tbl} Take 1 Tab Univers multivitami 0-07 by mouth ity of n ( 00:[place] VIT[place] 00 [facility] Immunizations Ordered Filled Date Status Comments Source Immunization Name Immunization Name Tdap 2013-04-18 Completed University of 00:00:00 [facility] Tdap 2013-04-18 Completed University of 00:00:00 [facility] Tdap 2013-04-18 Completed University of 00:00:00 [facility] Tdap 2013-04-18 Completed University of 00:00:00 [facility] Tdap 2013-04-18 Completed University of 00:00:00 [facility] Tdap 2013-04-18 Completed University of 00:00:00 [facility] Tdap 2013-04-18 Completed University of 00:00:00 [facility] Rubella 2012-11-08 Completed University of 00:00:00 [facility] Varicella 2012-11-08 Completed University of (varivax)(chicken 00:00:00 [facility] edical pox) [place] Rubella 2012-11-08 Completed University of 00:00:00 [facility] Varicella 2012-11-08 Completed University of (varivax)(chicken 00:00:00 [place] edical pox) Branch Rubella 2012-11-08 Completed University of 00:00:00 [facility] Varicella 2012-11-08 Completed University of (varivax)(chicken 00:00:00 [place] M edical pox) Branch Rubella 2012-11-08 Completed University of 00:00:00 [facility] Varicella 2012-11-08 Completed University of (varivax)(chicken 00:00:00 [place] M edical pox) Branch Rubella 2012-11-08 Completed University of 00:00:00 [facility] Varicella 2012-11-08 Completed University of (varivax)(chicken 00:00:00 [facility] edical pox) Branch Rubella 2012-11-08 Completed University of 00:00:00 [facility] Varicella 2012-11-08 Completed University of (varivax)(chicken 00:00:00 [place] M edical pox) Branch Rubella 2012-11-08 Completed University of 00:00:00 [facility] Varicella 2012-11-08 Completed University of (varivax)(chicken 00:00:00 [facility] edical pox) Branch Rubella Unknown Completed [facility] Varicella Unknown Completed University of (varivax)(chicken [facility] edical pox) Branch TDAP Unknown Completed [facility] Vital Signs Vital Name Observation Time Observation Value Comments Source Systolic blood 2023-06-18 23:00:00 106 mm[Hg] Univer sity of pressure [facility] Diastolic blood 2023-06-18 23:00:00 80 mm[Hg] [facility] Heart rate 2023-06-18 23:00:00 82 /min [facility] Respiratory rate 2023-06-18 23:00:00 29 /min [facility] Oxygen saturation in 2023-06-18 23:00:00 100 /min [facility] Arterial blood by [facility] Pulse oximetry Branch Body temperature 2023-06-18 18:09:00 36.67 Fifi [facility] [place] [facility] Body weight 2023-06-18 18:09:00 52.164 kg [facility] BMI 2023-06-18 18:09:00 20.37 kg/m2 [facility] Systolic blood 2019-10-25 21:31:00 103 mm[Hg] Univer sity of pressure [facility] Diastolic blood 2019-10-25 21:31:00 63 mm[Hg] Unive rsity of pressure [facility] Heart rate 2019-10-25 21:31:00 92 /min [facility] Body temperature 2019-10-25 21:31:00 37.33 Fifi [facility] Respiratory rate 2019-10-25 21:31:00 16 /min [facility] Body height 2019-10-25 21:31:00 160 cm [facility] Body weight 2019-10-25 21:31:00 52.674 kg [facility] BMI 2019-10-25 21:31:00 20.57 kg/m2 [facility] Procedures Procedure Date / Time Performing Clinician Source Performed POCT TEST 2023-06-18 19:49:00 Flynn Gray [facility] BASIC METABOLIC PANEL 2023-06-18 19:48:00 Flynn Gray [facility] (NA, K, CL, CO2, Medical Branch GLUCOSE, BUN, CREATININE, CA) CBC WITH DIFF 2023-06-18 19:48:00 Flynn Gray [facility] POCT GLUCOSE (AUTOMATED) 2023-06-18 18:32:00 Doctor Unassigned, No [facility] CONSENT/REFUSAL FOR 2023-06-18 17:48:41 Doctor Unassigned, No [facility] DIAGNOSIS AND TREATMENT [facility] [id number] 2020-06-23 00:00:00 [facility] [id number] 2020-06-23 00:00:00 [facility] AUTHORIZATION FOR 2019-11-05 06:01:00 Doctor Unassigned, No [facility] RELEASE OF [facility] POCT URINALYSIS W/O 2019-10-25 21:40:00 Rita Latif [facility] SPECIFIC GRAVITY [facility] POCT TEST 2019-10-25 21:33:00 AkinRita de la cruz [facility] ASSIGNMENT OF BENEFITS 2019-10-25 20:39:24 Doctor Unassigned, No [facility] Encounters Start End Encounter Admission Attending Care Care Encounter Source Date/Time Date/Time Type Type Clinicians Facility Department ID 2020-06-20 [id number] 08:30:00 Heather 04 [facility] [place] 2020-06-08 [facility] DARIA [id number] [facility] 20:26:00 Heather 35 [facility] [place] 2023-06-18 2023-06-18 Emergency X SAUL, [facility] ERT [id number] Univers 13:11:00 19:15:00 FROILAN long [facility] 2023-06-18 2023-06-18 Emergency Saul, TRAUMA [id number] Univers 13:11:00 19:15:00 Froilan KRISTINA 350.1.13.10 [place] 4[place].2.686 [place] [id number] [address] 2020-05-28 2020-05-28 Emergency EM Don-G [facility] DARIA [id number] [facility] 11:41:00 15:08:00 omez, 55 [facility] [place] 2020-04-24 2020-04-24 Outpatient Serrano, [facility] RADI [id number] [facility] 14:00:00 14:00:00 Heather 78 [facility] [place] 2020-02-14 2020-02-14 Outpatient Serrano, [facility] RADI [id number] [facility] 13:00:00 13:00:00 Heather 05 [facility] [place] 2019-12-12 2019-12-12 Letter Salomon WIJOSE [id number] 00:00:00 00:00:00 (Out) Rita Kc DRIVER'S EDUCATION INSTRUCTOR 350.1.13.10 [facility] 4.2.7.2.686 MATERNAL [id number] & CHILD [address] [place] [address] 2019-12-12 2019-12-12 Letter TORITO Latif [id number] Univers 00:00:00 00:00:00 (Out) Rita C DRIVER'S EDUCATION INSTRUCTOR 350.1.13.10 ity of REGIONAL 4.2.7.2.686 [place] as MATERNAL [id number] Med ical & CHILD [address] [place] [address] 2019-11-21 2019-11-21 Outpatient R SALOMON [facility] [id number] [facility] 09:45:00 09:45:00 RITA ity o f [facility] 2019-11-05 2019-11-05 Orders Doctor JIMENEZ [id number] 00:00:00 00:00:00 Only Unassigned, AYLIN 350.1.13.10 [place] [facility] 4.2.7.2.686 [id number] [facility] 2019-11-05 2019-11-05 Orders Doctor JIMENEZ [id number] [facility] 00:00:00 00:00:00 Only Unassigned, AYLIN 350.1.13.10 ity of [place] [facility] 4.2.7.2.686 [place] as [phone] [address] 2019-11-02 2019-11-02 Telephone [facility] [id number] Univers 00:00:00 00:00:00 Rita C DRIVER'S EDUCATION INSTRUCTOR 350.1.13.10 ity of REGIONAL 4.2.7.2.686 [place] as MATERNAL [id number] [facility] ical & CHILD [address] [place] [address] 2019-11-02 2019-11-02 Telephone [facility] [id number] 00:00:00 00:00:00 Rita C DRIVER'S EDUCATION INSTRUCTOR 350.1.13.10 REGIONAL 4.2.7.2.686 MATERNAL [id number] & CHILD [address] [place] [address] 2019-10-25 2019-10-25 Initial [facility] [id number] Univers 14:59:01 16:20:39 Rita C DRIVER'S EDUCATION INSTRUCTOR 350.1.13.10 ity of Visit REGIONAL 4.2.7.2.686 [place] as MATERNAL [id number] Med ical & CHILD [address] [place] [address] 2019-10-25 2019-10-25 Outpatient R SALOMON, [facility] [id number] Univers 14:00:00 15:17:39 RITA long o andrea [facility] 2019-10-25 2019-10-25 Orders Doctor JIMENEZ [id number] Univers 00:00:00 00:00:00 Only Unassigned, AYLIN 350.1.13.10 ity of [place] [facility] 4.2.7.2.686 [place] as [phone] [address] Results Test Description Test Time Test Comments Results Result Comments Source BASIC METABOLIC PANEL (NA, K, CL, CO2, GLUCOSE, BUN, 2023-06 20:32:06 CREATININE, CA) Test Item Value Reference Range Interpretation Comme nts NA (test code = 7796564082) 138 mmol/L 135-145 K (test code = 1057970210) 3.9 mmol/L 3.5-5.0 CL (test code = 0897775542) 102 mmol/L 98-108 CO2 TOTAL (test code = 29 mmol/L 23-31 7810841372) AGAP (test code = 9171459299) 7 2-16 BUN (test code = 0226485510) 12 mg/dL 7-23 GLUCOSE (test code = 5226216149) 84 mg/dL 70-110 CREATININE (test code = 0.74 mg/dL 0.50-1.04 6308367512) CALCIUM (test code = 3741592705) 9.2 mg/dL 8.6-10.6 eGFR (test code = 7083306916) 92.8 mL/min/1.73m2 TIP (test code = TIP) Association of Glomerular Filtration Rate (GFR) and Staging of Kidney Disease* + +--------- + ----+| GFR (mL/min/1.73 m2) ?| With Kidney Damage ?| ?Without Kidney Damage+ +--- + +| ?>90 ?| ?Stage one ?| ? Normal ?+ +-------- + -----+| ?60-89 ?| ?Stage two ?| ? Decreased GFR ? + +--------- + ----+| ?30-59 ?| ?Stage three ?| ? Stage three ? + +--------- + ----+| ?15-29 ?| ?Stage four ? | ? Stage four ?+ +-------- + -----+| ?<15 (or dialysis) ? ?| ?Stage five ? | ? Stage five ?+ +-------- + -----+ *Each stage assumes the associated GFR level has been in effect for at least three months. ?Stages 1 to 5, with or without kidney disease, indicate chronic kidney disease. Notes: Determination of stages one and two (with eGFR >59mL/min/1.73 m2) requires estimation of kidney damage for at least three months as defined by structural or functional abnormalities of the kidney, manifested by either:Pathological abnormalities or Markers of kidney damage (including abnormalities in the composition of the blood or urine or abnormalities in imaging tests). [facility] WITH [id number] 20:21:45 Test Item Value Reference Range Interpretation Comments WBC (test code = 7.55 See_Comment [Automated 6674-2) message] The sy stem which generated this result transmitted reference range : 4.30 - 11.10 10*3/?L. The reference range was not used to interpret this result as normal/abnormal . RBC (test code = 3.97 See_Comment [Automated 365-8) message] The sy stem which generated this result transmitted reference range : 3.93 - 5.25 10*6/?L. The reference range was not used to interpret this result as normal/abnormal . HGB (test code = 12.7 g/dL 11.6-15.0 718-7) HCT (test code = 37.2 % 35.7-45.2 4544-3) MCV (test code = 93.7 fL 80.6-95.5 787-2) MCH (test code = 32.0 pg 25.9-32.8 785-6) MCHC (test code = 34.1 g/dL 31.6-35.1 786-4) RDW-SD (test code = 39.8 fL 39.0-49.9 95285-3) RDW-CV (test code = 11.7 % 12.0-15.5 L 788-0) PLT (test code = 234 See_Comment [Automated 094-3) message] The sy stem which generated this result transmitted reference range : 166 - 358 10*3/ ?L. The reference r abiola was not used to interpret this result as normal/abnormal . MPV (test code = 10.8 fL 9.5-12.9 54749-4) NRBC/100 WBC (test 0.0 See_Comment [Automat ed code = 0930093233) message] The system which generated this result transmitted reference range : 0.0 - 10.0 /100 WBCs. The refer ence range was not u sed to interpret th is result as normal/abnormal . NRBC x10^3 (test code See_Comment [Auto mated = 2367202264) message] The s ystem which generated this result transmitted reference range : 10*3/?L. The reference range was not used to interpret this result as normal/abnormal . GRAN MAT (NEUT) % 65.5 % (test code = 770-8) IMM GRAN % (test code 0.30 % = 9551202986) LYMPH % (test code = 23.6 % 736-9) MONO % (test code = 8.9 % 5905-5) EOS % (test code = 1.2 % 713-8) BASO % (test code = 0.5 % 706-2) GRAN MAT x10^3(ANC) 4.95 10*3/uL 1.88-7.09 (test code = 3796611795) IMM GRAN x10^3 (test 0.00-0.06 code = 8430969318) LYMPH x10^3 (test code 1.78 10*3/uL 1.32-3.29 = 731-0) MONO x10^3 (test code 0.67 10*3/uL 0.33-0.92 = 742-7) EOS x10^3 (test code = 0.09 10*3/uL 0.03-0.39 711-2) BASO x10^3 (test code 0.04 10*3/uL 0.01-0.07 = 704-7) Lab Interpretation Abnormal (test code = 26303-6) [facility] [id number] 19:49:00 Test Item Value Reference Range Interpretation Comments POCT PREG (test code = 1605) Negative On board controls acceptable with Yes C Line (test code = 3574) POCT PREG LOT # (test code = 3575) [id number] POCT PREG TEST DATE (test 09-14-2024 code = 3576) Lab Interpretation (test code = Normal 90641-1) [facility]ATED)2023-06-18 18:33:28 Test Item Value Reference Range Interpretation Comments POCT GLU (test code = 4367279822) 96 mg/dL 70-110 Lab Interpretation (test code = Normal 39637-4) [facility] HospitalFALLOPIAN TUBE,[id number] 16:03:00 RUN DATE: 06/24/20 [facility] PAGE 1 RUN TIME: 1731 Specimen Inquiry RUN USER: INTERFACE --PATIENT: GALEN VIERA LOC: DEMARCUS U #: [id number] AGE/SX: 24/F ROOM: [facility] RE06/23/20[facility] DR: Heather Serrano MD : 93 BED: A DIS: STATUS: ADM IN TLOC: SPEC #: [id number] RECD: 06/23/20 STATUS: LINCOLN ALTAMIRANO #: [id number] EDILBERTO: 06/23/20- SUBM DR: Heather Serrano MD ENTERED: 06/23/20 SP TYPE: FALLST OT DR: ORDERED: LEVEL II SURGIC/2 CODES: A46425 - FALLOPIAN TUBE PROCEDURES: LEVEL II SURGIC (Incomplete) TISSUES: FALLOPIAN TUBE, NOS - BILATERAL FALLOPIAN TUBES CLINICAL HISTORY 24 year old, . 39.2 weeks, repeat section (kr) FINAL DIAGNOSIS Right fallopian tube, ligation: - completely transected unremarkable fallopian tube Left fallopian tube, ligation: - completely transected unremarkable fallopian tube CPT code(s): 39602 x2 [facility]/.wpd GROSS DESCRIPTION ANATOMIC SOURCE OF TISSUE (per Requisition): 1. Right fallopian tube 2. Left fallopian tube Each specimen is labeled withthe patient's name and medical record number. Specimen #1 is designated "right fallopian tube" and consists of a 2 x 0.6 cm blair-pink tubular tissue. No fimbriae are identified. Sectioning reveals a pinpoint lumen. A customer sales representative section is submitted in A1. Specimen #2 is designated "left fallopian tube" and consists of a 1 x 0.6 cm blair-pink tubular tissue. No fimbriae are identified. Sectioning reveals a pinpoint lumen. A customer sales representative section is submitted in B1. daniel/shaun 06/23/20 CONTINUED ON NEXT PAGE RUN DATE: 06/24/20 [facility] PAGE 2 RUN TIME: 535 Specimen Inquiry RUN USER: INTERFACE - SPEC #: [id number] PATIENT: GALEN VIERA #[id number] (Continued) Signed Heaven Swann MD 06/24/20 1603 END OF REPORT CBC W/AUTO [id number] 07:08:00 Test Item Value Reference Range Interpretation Comments [...] 27-35 N MEAN CELL HGB CONCETRATION (test 32.5 gm/dL 32.2-34.1 N code = MCHC) RED CELL DISTRIBUTION WIDTH (test 13.2 % 12.4-16.5 N code = RDW) PLATELET COUNT (test code = PLT) 171 K/mm3 133-385 N MEAN PLATELET VOLUME (test code = 11.0 fl 9.1-12.7 N MPV) NEUTROPHIL % (test code = NT%) 77.8 [...] REQUIRED (test NORMAL NORMAL code = PLTMR) COVID 19 Asymptomatic IH [id number] 15:19:00 Test Item Value Reference Range Interpretation [...] of Accreditation. This test is only authori josh for the duration of thedeclaration that circumstances e xist justifying theauthorizatio n of emergency use o f in vitro diagnostic test sfor detection and/o r diagnosis of CO VID-19 under Cglhoxd25 4(b)(1) of the Act, 21 U.S .C. 360bbb-3(b)(1), unless theauthorizatio n is terminated or r evoked sooner. AG HEPATITIS B [id number] 14:55:00 Test Item Value Reference Range Interpretation Comments AG HEPATITIS B SURFACE (test code NONREACTIVE NONREACTIVE = HBSAG) IS CONSENT FORM SIGNED FOR HIV TESTING? YAB HEPATITIS C [id number] 14:55:00 Test Item Value Reference Range Interpretation Comments AB HEPATITIS C (test code = NONREACTIVE NONREACTIVE HCVAB) SIGNAL TO CUTOFF (test code = 0.06 <0.80 N CUTOFF) IS CONSENT FORM SIGNED FOR HIV TESTING? YAB [id number] 14:55:00 Test Item Value Reference Range Interpretation Comments AB TREPONEMA (test code = TREPAB) NONREACTIVE NONREACTIVE IS CONSENT FORM SIGNED FOR HIV TESTING? YAB HIV 1 14:55:00 Test Item Value Reference Range Interpretation Comments AB HIV 1 2 (test NONREACTIVE NONREACTIVE [facility] code = WZH34JT) 4th Gen HIV Ag/Ab Combo Screen IS CONSENT FORM SIGNED FOR HIV TESTING? YAG HEPATITIS B [id number] 14:21:00 Test Item Value Reference Range Interpretation Comments AG HEPATITIS B SURFACE (test code NONREACTIVE NONREACTIVE = HBSAG) IS CONSENT FORM SIGNED FOR HIV TESTING? YAB HEPATITIS C [id number] 14:21:00 Test Item Value Reference Range Interpretation Comments AB HEPATITIS C (test code = HCVAB) NONREACTIVE SIGNAL TO CUTOFF (test code = CUTOFF) <0.80 IS CONSENT FORM SIGNED FOR HIV TESTING? YAB [id number] 14:21:00 Test Item Value Reference Range Interpretation Comments AB TREPONEMA (test code = TREPAB) NONREACTIVE NONREACTIVE IS CONSENT FORM SIGNED FOR HIV TESTING? YAB HIV 1 14:21:00 Test Item Value Reference Range Interpretation Comments AB HIV 1 2 (test code = UNC27CA) NONREACTIVE IS CONSENT FORM SIGNED FOR HIV TESTING? YURINALYSIS W/O [id number] 13:43:00 Test Item Value Reference Range Interpretation Comments UA GLUCOSE DIPSTICK (test code = NEGATIVE NEGATIVE DGLUU) UA KETONE DIPSTICK (test code = NEGATIVE NEGATIVE KETU) UA PROTEIN DIPSTICK (test code = NEGATIVE NEGATIVE PROU) IS NURSE PERFORMING TEST? NCBC W/AUTO [id number] 13:41:00 Test Item Value Reference Range Interpretation [...] = PLTMR) - US FET BIO PH IN W/O [id number] 23:41:00 Patient Name: GALEN VIERA Unit No: [id number] EXAMS: CPT CODE: [id number] US FET BIO PH IN W/O NST 61750 Limited obstetrical ultrasound dated 06/08/2020. HISTORY: 35 [...] Gilberto Chen MD CC: Kayy Martin MD Tech nologist: TOR SRIVASTAVA RDMS, RVT Probe: Trnscrbd D/ (8130) CarriM Orig Print D/T:S: 06/08/2020 (7866) [facility] NAME: GALEN VIERA Radiology Department PHYS: Kayy Hudson MD [address] : 1995 AGE: 24 SEX: [place] [address] LOC: ClareDARIA PHONE #: [phone] EXAM DATE: 06/08/2020 STATUS: REG ER FAX #: [phone] RAD NO: Page 1 Signed Report Patient Name: GALEN VIERA Unit No: [id number] EXAMS: CPT CODE: [id number] US FET BIO PH IN W/O NST 57398 (Continued) [facility] NAME: GALEN VIERA Radiology Department PHYS: Kayy Hudson MD [address] : 1995 AGE: 24 SEX: [place] [address] LOC: ClareDARIA PHONE #: [phone] EXAM DATE: 06/08/2020 STATUS: REG ER FAX #: [phone] RAD NO: Page 2 Signed Report- US FLW [id number] 15:32:00 Patient Name: GALEN VIERA Unit No: [id number] EXAMS: CPT CODE: [id number] US FLW UP [id number] [address] OBSTETRICAL ULTRASOUND REPORT Pat. Name: GALEN VIERA Pat. No: [id number] Study Date: 04/24/2020 2:22pm , Age: 8 1995, 24 Pregnancies: 5, Para 3 LMP: 09/22/2019 GA by LMP: 30w5d GA by 1st: 30w5d GA by US: 29w3d GA Selected: 30w5d (LMP) LAINEY: 06/28/2020 Referring MD: HEATHER SERRANO Hand Splitter: Candi Barfield RDMS CPT4: USPREGFU MEASUREMENTS AGE GROWTH EVALUATION Measurement GA Range Srce %for GA Ratios ----- ---- ------- BPD 7.4 cm 30w0d (23x4z-23o4f) Hadl BPD 27% FL/BPD 0.77 (0.71 - 0.87) HC 27.5 cm 29w5d (10x5z-23y9c)Hadl HC 30% FL/AC 0.23 (0.20 - 0.24) APD 7.4 cm APD HC/AC 1.09 (0.97 - 1.16) TAD 8.6 cm TAD CI 0.79(0.70 - 0.86) AC 25.2 cm 29w3d (27w1d- 31w4d) Hadl AC 23% FL 5.7 cm 29w4d (31p9y-87i3b) Hadl FL 26% HL 5.0 cm 29w2d (90b6u-80u8s) [place] HL 26% GA for sonogram 29w3d (11j8f-27k2j) Weight Estimate: based on (BPD,HC,AC,FL) Hadlock Weight: 1430 gm (0829-0754) Hadlo : 3lbs, 2oz Normal: 1579 gm (9554-0986) Brenn Wt% 37% for 30.7 wks Cervical [...] previa. Amniotic fluid volume is normal. [facility] NAME: GALEN VIERA Radiology Department PHYS: Heather Loyd MD [address] : 1995 AGE: 24 SEX: [place], [place] [address] LOC: ClareRAD PHONE #: [phone] EXAM DATE: 04/24/2020STATUS: TED CLI FAX #: [phone] RAD NO: Page 1 Signed Report (CONTINUED) Patient Name: GALEN VIERA Unit No: [id number] EXAMS: CPT CODE: [id number] US FLW UP 56051 (Continued) Uterus and adnexa: No significant abnormality is seen. Thank you for allowing us to participate in the care of this patient. Pa Capone M.D. Electronic Signature 04/24/2020 03:32pm at 1532 Reported and signed by: Pa Capone MD CC: Technologist: Candi Barfield RDMS Probe: Trnscrbd D/ (1532) Awais Graf D/T: S: 04/24/2020 (1532) [facility] NAME: GALEN VIERA Radiology Department PHYS: Heather Loyd MD [address] : 1995 AGE: 24 SEX: [place] [address] LOC: ClareRAD PHONE #: [phone] EXAM DATE: 04/24/2020 STATUS: REG CLI FAX #: [phone] RAD NO: Page 2 Signed Report Patient Name: GALEN VIERA Unit No: [id number] EXAMS: CPT CODE: [id number] US FLW UP 04116 (Continued) [facility] NAME: GALEN VIERA Radiology Department PHYS: Heather Loyd MD [address] : 1995 AGE: 24 SEX: [place] [address] LOC: ClareRAD PHONE #: [phone] EXAM DATE: 04/24/2020 STATUS: REG CLI FAX #: [phone] RAD NO: Page 3 Signed Report- US PREG AFTER [id number] 14:10:00 Patient Name: GALEN VIERA Unit No: [id number] EXAMS: CPT CODE: [id number] US PREG AFTER TRI [address] [facility] [address] [place], [place] [address] OBSTETRICAL ULTRASOUND REPORT Pat. Name: GALEN VIERA Pat. No: [id number] Study Date: 02/14/2020 12:59pm , Age: 8 1995, 24 Pregnancies: 5, Para 3 LMP: 09/22/2019 GA by LMP: 20w5d GA by US: 20w0d GA Selected: 20w5d (From Known E) LAINEY: 06/28/2020 Referring MD: HEATHER SERRANO Hand Splitter: Amy Valdivia RDMS CPT4: [id number] Admitting MD: HEATHER SERRANO Hist/Ind: ANATOMY SCAN 1 MEASURE MENTS AGE GROWTH EVALUATION Measurement GA Range Srce %for GA Ratios ----- ---- ------- BPD 4.4 cm 19w2d (66x1x-12u2l) Hadl BPD <05 FL/BPD 0.79 HC 17.0 cm 19w4d (17w6d- 21w1d) Hadl HC 16% FL/AC 0.23 APD 5.1 cm APD HC/AC 1.11 (1.06 - 1.24) TAD 4.6 cm TAD CI 0.75 (0.70 - 0.86) AC 15.3 cm 20w1d (29v5o-81c3q) Hadl AC 38% FL 3.5 cm 20w5d (10k4g-01t5x) Hadl FL 49% HL 3.2 cm 20w5d (78z5n-54b4s) [place] HL 50% GA for sonogram 20w0d (07b0o-65g8d) Weight Estimate: based on (BPD,HC,AC,FL) Hadlock Weight: 362 gm (309-415) Hadlock : 0lbs, 12ozCervical Length: 4.6 cm Heart Rate: 136 bpm MATERNAL ANATOMY Ovaries LxHxW (cm) Right 2.7 x 1.7 x 1.9 Vol: 4.6cc Ovarian Cysts LxHxW (cm) R1: 2.0 x 1.1 x 1.5 CLINICAL SUMMARY Type of Gestation: [place] Intrauterine in variable presen tation. size is appropriate for gestational age. motion and organs seen: heart motion seen Four chamber heart observed Left ventricular outflow tract (LVOT) seen [facility] NAME: GALEN VIERA Radiology Department PHYS: Heather Loyd MD [address] : 1995 AGE: 24 SEX: [place], [place] [address] LOC: ClareRAD PHONE #: [phone] EXAM DATE: 02/14/2020 STATUS: REG CLI FAX #: [phone] RAD NO: Page 1 Signed Report (CONTINUED) Patient Name: GALEN VIERA Unit No: [id number] EXAMS: CPT CODE: [id number] US PREG AFTER TRI 06328 (Continued) Right ventricular outflow tract (RVOT) seen [...] Amy Valdivia RDMS Probe: Trnscrbd D/ (1410) [email or web address] Orig Print D/T: S: 02/14/2020 (1410) [facility] NAME: GALEN VIERA Radiology Department PHYS: Heather Loyd MD [address] : 1995 AGE: 24 SEX: [place] [address] LOC: ClareRAD PHONE #: [phone] EXAM DATE: 02/14/2020 STATUS: REG CLI FAX #: [phone] RAD NO:Page 2 Signed Report Patient Name: GALEN VIERA Unit No: [id number] EXAMS: CPT CODE: [id number] US PREG AFTER TRI 14086 (Continued) [facility] NAME: GALEN VIERA Radiology Department PHYS: Heather Loyd MD [address] : 1995 AGE: 24 SEX: [place] [address] LOC: ClareRAD PHONE #: [phone] EXAM DATE: 02/14/2020 STATUS: REG CLI FAX #: [phone] RAD NO: Page 3 Signed ReportPOCT URINALYSIS W/O SPECIFIC [id number] 21:40:00 Test Item Value Reference Range Interpretation [...] code = 3257) . Negative - Negative [facility] URINALYSIS W/O SPECIFIC [id number] 21:40:00 Test Item Value Reference Range Interpretation [...] code = 3257) . Negative - Negative [id number] 21:33:00 Test Item Value Reference Range Interpretation Comments POCT PREG (test code = 1605) Positive On board controls acceptable with C Yes Line (test code = 3574) POCT PREG LOT # (test code = 3575) POCT PREG TEST DATE (test code = 3576) [facility] [id number] 21:33:00 Test Item Value Reference Range Interpretation Comments POCT PREG (test code = 1605) Positive On board controls acceptable with C Yes Line (test code = 3574) POCT PREG LOT # (test code = 3575) POCT PREG TEST DATE (test code = 3576) [facility]
[2023-06-22 19:04] LABS: Hematocrit 37.5 % (36.0-45.0); Lymphocytes % 26.9 % (15.3-44.8); MCV 90.6 fL (80-100); MPV 8.3 fL (7.6-11.3); Platelets 230 thou/uL (152-406); RBC Red Blood Cell Count 4.14 M/uL (3.86-4.86)
[2023-06-22 19:21] LABS: Potassium 3.4 mEq/L (3.5-5.1); Troponin High Sensitivity 4.7 pg/mL (<58.9)
--- NOTE | 2023-06-22 19:37 | RAD REPORT ---
EXAM DESCRIPTION: RAD - Chest Single View - 06/22/2023 7:26 pm CLINICAL HISTORY: CHEST PAIN Chest pain. COMPARISON: Chest Single View dated 06/27/2020 FINDINGS: Portable technique limits examination quality. The lungs are grossly clear. The heart is normal in size. No displaced fractures. IMPRESSION: No acute intrathoracic process suspected.
--- NOTE | 2023-06-22 19:51 | ER ---
Nurse's Notes [facility] Name: Antelmo Townsend Age: 27 yrs Sex: Female : 1995 Arrival Date: 06/22/2023 Time: 18:25 Bed 17 Private MD: Diagnosis: Chest pain, unspecified Presentation: 06/22 18:33 Chief complaint: Patient states: she started having difficulty breathing, with a hard ap3 time catching her breath yesterday. 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 Coronavirus screen: At this time, the client does not indicate any symptoms associated with coronavirus-19. Ebola Screen: No symptoms or risks identified at this time. Initial Sepsis Screen: Does the patient meet any 2 criteria? HR > 90 bpm. Does the patient have a suspected source of infection? No. Patient's initial sepsis screen is negative. Risk Assessment: Do you want to hurt yourself or someone else? Patient reports no desire to harm self or others. Onset of symptoms was June 21, 2023. 18:33 Method Of Arrival: Ambulatory ap3 18:33 Acuity: MARK 3 ap3 Triage Assessment: 18:35 General: Appears in no apparent distress. Behavior is calm, cooperative. Pain: ap3 Complains of pain in chest Quality of pain is described as pressure. Neuro: Level of Consciousness is awake, alert, obeys commands, Oriented to person, place, time, situation. Cardiovascular: Reports chest pain, shortness of breath. Respiratory: Airway is patent Respiratory effort is even, unlabored, Respiratory pattern is regular, symmetrical. 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 - Social history:: Smoking status: Patient denies any tobacco usage or history of. Screenin:36 [facility] ED Fall Risk Assessment (Adult) History of falling in the last 3 months, ap3 including since admission No falls in past 3 months (0 pts). Abuse screen: Denies threats or abuse. Nutritional screening: No deficits noted. Tuberculosis screening: No symptoms or risk factors identified. Assessment: 18:36 Pain: Pain began 1 day ago. ap3 18:36 Pain: Pain does not radiate. ap3 18:55 Reassessment: See triage assessment. nj1 18:55 Reassessment: Pt refused IV access at this time. Khalif HIGHTOWER notified. nj1 19:34 Reassessment: Patient appears in no apparent distress at this time. Patient and/or nj1 family updated on plan of care and expected duration. Pain level reassessed. Patient is alert, oriented x 3, equal unlabored respirations, skin warm/dry/pink. Vital Signs: 18:33 BP 120 / 73; Pulse 97; Resp 17; Temp 98.9; Pulse Ox 100% ; Weight 51.71 kg; ap3 19:34 BP 104 / 77; Pulse 88; Resp 19; Pulse Ox 99% on R/A; Pain 3/10; nj1 19:56 BP 105 / 66; Pulse 88; Resp 14; Pulse Ox 99% on R/A; kl 19:34 Pain Scale: Adult [facility] ED Course: 18:27 Patient arrived in ED. mr 18:32 Kary Cuadra, [facility] is [facility]. kb 18:32 Ge Walker MD is Attending Physician. kb 18:35 Triage completed. ap3 18:36 Arm band placed on right wrist. ap3 18:36 Patient maintains SpO2 saturation greater than 95% on room air. ap3 18:47 senior unix administrator on. Pulse ox on. NIBP on. Door closed. Noise minimized. ap3 18:47 Patient has correct armband on for positive identification. Placed in gown. Bed in low ap3 position. Call light in reach. 18:52 Cee Granado, YAYO is Primary Nurse. nj1 19:28 XRAY Chest (1 view) In Process Unspecified. EDMS 19:56 No provider procedures requiring assistance completed. Patient did not have IV access kl during this emergency room visit. Administered Medications: No medications were administered Medication: 19:56 VIS not applicable for this client. kl Outcome: 19:51 Discharge ordered by . kb 19:56 Discharged to home ambulatory, kl 19:56 Condition: stable 19:56 Discharge instructions given to patient, Instructed on discharge instructions, follow up and referral plans. Demonstrated understanding of instructions, follow-up care, 19:57 Patient left the ED. kl Signatures: Dispatcher [employer] EDKary Jordan, KILN FURNITURE CASTER-C KILN FURNITURE CASTER-Sonja Ann, RN Sheila Brantley, [facility] [place]on mr Brittany Pride, RN RN ap3 Cee Granado RN RN nj1
--- NOTE | 2023-06-22 19:52 | EDPHYS ---
Physician Documentation [facility] [place] Name: Antelmo Townsend Age: 27 yrs Sex: Female : 1995 Arrival Date: 06/22/2023 Time: 18:25 Bed 17 Private MD: ED Physician Ge Walker HPI: 06/22 19:19 This 27 yrs old Female presents to ER via Ambulatory with complaints of Chest Pain, kb Breathing Difficulty. 19:19 The patient or guardian reports chest pain that is located primarily in the chest kb diffusely. The pain does not radiate. Associated signs and symptoms: Pertinent positives: shortness of breath. The chest pain is described as a heaviness. Duration: The patient or guardian reports a single episode, that is still ongoing. Modifying factors: The symptoms are alleviated by nothing. the symptoms are aggravated by exertion. Severity of pain: At its worst the pain was moderate in the emergency department the pain is unchanged. The patient has not experienced similar symptoms in the past. The patient has not recently seen a physician. 19:19 Pt reports chest pain and shortness of breath on exertion for 3 days. . 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 - Social history:: Smoking status: Patient denies any tobacco usage or history of. ROS: 19:19 Constitutional: Negative for fever, chills, and weight loss, kb 19:19 Cardiovascular: Positive for chest pain, Negative for edema, orthopnea, palpitations, paroxysmal nocturnal dyspnea, 19:19 Respiratory: Positive for dyspnea on exertion, 19:19 All other systems are negative, Exam: 19:19 Constitutional: This is a well developed, well nourished patient who is awake, alert, kb and in no acute distress. Head/Face: Normocephalic, atraumatic. ENT: Moist Mucous membranes Cardiovascular: Regular rate Respiratory: Respirations even and unlabored. No increased work of breathing. Talking in full sentences Abdomen/GI: Soft, non-tender. No distention Skin: Warm, dry with normal turgor. Normal color. MS/ Extremity: Pulses equal, no cyanosis. Neurovascular intact. Full, normal range of motion. Neuro: Awake and alert, GCS 15, oriented to person, place, time, and situation. Moves all extremities. Normal gait. 19:19 Constitutional: The patient appears anxious, 19:54 ECG was reviewed by the Attending Physician. kb Vital Signs: 18:33 BP 120 / 73; Pulse 97; Resp 17; Temp 98.9; Pulse Ox 100% ; Weight 51.71 kg; ap3 19:34 BP 104 / 77; Pulse 88; Resp 19; Pulse Ox 99% on R/A; Pain 3/10; nj1 19:56 BP 105 / 66; Pulse 88; Resp 14; Pulse Ox 99% on R/A; kl 19:34 Pain Scale: Adult nj1 MDM: 18:32 Patient medically screened. kb 19:19 Data reviewed: vital signs, nurses notes. kb 19:49 Differential diagnosis: abnormal EKG, acute myocardial infarction, anxiety, coronary kb artery disease. Test considered but Not performed: CT: CT considered but PERC negative. Counseling: I had a detailed discussion with the patient and/or guardian regarding the historical points, exam findings, and any diagnostic results supporting the discharge/admit diagnosis, lab results, radiology results, the need for outpatient follow up, a family practitioner, to return to the emergency department if symptoms worsen or persist or if there are any questions or concerns that arise at home. 06/22 18:41 Order name: Basic Metabolic Panel; Complete Time: 19:23 kb 06/22 18:41 Order name: CBC with Diff; Complete Time: 19:06 kb 06/22 18:41 Order name: Troponin HS; Complete Time: 19:23 kb 06/22 18:41 Order name: XRAY Chest (1 view); Complete Time: 19:42 kb 06/22 18:41 Order name: EKG; Complete Time: 18:41 kb 06/22 18:41 Order name: Cardiac monitoring; Complete Time: 18:47 kb 06/22 18:41 Order name: EKG - Nurse/Tech; Complete Time: 19:34 kb 06/22 18:41 Order name: Labs collected and sent; Complete Time: 19:02 kb 06/22 18:41 Order name: O2 Per Protocol; Complete Time: 18:47 kb 06/22 18:41 Order name: O2 Sat Monitoring; Complete Time: 18:47 kb EC:54 Rate is 83 beats/min. Rhythm is regular. QRS [place] is Normal. TN interval is normal at kb 138 msec. QRS interval is normal at 84 msec. QT interval is normal at 434 msec. Administered Medications: No medications were administered Disposition: 20:24 Co-signature as Attending Physician, Ge Walker MD I agree with the assessment and kdr plan of care. Disposition Summary: 06/22/23 19:51 Discharge Ordered Notes: Location: Home kb Condition: Stable kb Diagnosis - Chest pain, unspecified kb Followup: kb - With: Emergency Department - When: As needed - Reason: Worsening of condition Followup: kb - With: Private Physician - When: 2 - 3 days - Reason: Recheck today's complaints, Continuance of care, Re-evaluation by your physician Discharge Instructions: - Discharge Summary Sheet kb - Nonspecific Chest Pain, Adult, [id number]-[id number]-[id number] kb Forms: - Medication Reconciliation Form kb - Thank You Letter kb - Antibiotic Education kb - Prescription Opioid Use kb - Patient Portal Instructions kb - Leadership Thank You Letter kb Signatures: Dispatcher [employer] EDKary Jordan, MARINE EXTENSION AGENT-C MARINE EXTENSION AGENT-Sonja Ann, RN Ge Fleming MD MD [facility] Brittany Pride RN RN ap3
[2023-06-22 20:21] VITALS: TEMP 98.9
[2023-06-22 20:22] VITALS: O2SAT 99
[2023-06-22 20:23] VITALS: BP 105/66
--- NOTE | 2023-06-23 12:28 | EKG ---
Test Date: 2023-06-22 Test Time: 19:28:38 Industrial Engineering: ROSALINA MEASUREMENT RESULTS: Intervals: Rate: 83 MI: 138 QRSD: 84 QT: 370 QTc: 434 [place]: P: 34 MI: 138 QRS: 62 T: 33 INTERPRETIVE STATEMENTS: Normal sinus rhythm Normal ECG Compared to ECG 05/11/2023 14:29:05 Sinus arrhythmia no longer present Electronically Signed On 06-23-23 12:26:59 CDT by Parveen New
== END 2023-06-22 19:57 | disposition home or self-care (01) ==
LOC: ER 18:25
DX: R07.9 Chest pain, unspecified (principal)
CPT/HCPCS: 36415; 71045; 80048; 84484; 85025; 93005

== ENCOUNTER 2024-10-28 11:20 | Emergency (ER) | payer SELFPAY ==
--- OUTSIDE RECORDS SUMMARY | 2024-10-28 11:23 | XMS REPORT | Continuity of Care Document ---
Author Name Unknown Address [address] [facility] [address] [place] [address] [facility] Address [address] [facility] [address] [place] [address] Care Team Providers Care Medical Grade Shoemaker Name Role Phone PCP, PATIENT DOES NOT HAVE A Primary Care Physic april Unavailable Heather Serrano Attending Clinician Unavailable DANIELLA_GCBZCheryl_Radha_Louis Attending Clinician UnavailFROILAN Quiros Attending Clinician Unavailable Forilan Hughes MD Attending Clinician Jerald Mccollum Attending Clinician Unav Rita Heart Attending Clinician + RITA LATIF Attending Clinician Unavail able Doctor Unassigned, [place] Attending Clinician U Heather Hurst Admitting Clinician Unavailable DANIELLA_GCBZW_Radha_S Admitting Clinician UnavailFROILAN Quiros Admitting Clinician Unavailable Payers Payer Name Policy Type Policy Number Effective Date Expirati on Date Source MEDICAID OF [place] [id number] 2019 00:00:00 Problems Condition Name Condition Details Condition Category Status Onset Date Resolution Date Last Treatment Date Treating Clinician Comments Source Yeast infection Yeast infection Disease Active 2-21 00:00: 00 [facility] Supervisio n of high-risk Supervisio n of high-risk Disease Active 10-25 00:00: 00 [facility] Multiparit y Multiparit y Disease Active 10-25 00:00: 00 [facility] History of herpes genitalis History of herpes genitalis Disease Active 10-25 00:00: 00 Overview: Formattin g of this note might be different from the original. Suppressi on at 36 weeks [facility] Rubella non-immune status, antepartum Rubella non-immune status, antepartum Disease Active 2013-09 00:00: 00 [facility] History of section History of section Disease Active 2013-09 00:00: 00 Overview: Formattin g of this note might be different from the original. x3 [facility] Encounter for routine gynecologi екатерина examinatio n Encounter for routine gynecologi екатерина examinatio n Disease Active 2012-09 00:00: 00 Overview: ICD10 Diagnosis Term [employer] Utility [facility] Generalize d anxiety disorder Generalize d anxiety disorder Disease Active 11-08 00:00: 00 [facility] Allergies, Adverse Reactions, Alerts Allergy Name Allergy Type Status Severity Reaction(s) Onset Date Inactive Date Treating Clinician Comments Source No Known Drug Allergie s DA Active U 06-08 00:00: 00 [facility] No Known Drug Allergie s DA Active U 06-08 00:00: 00 [facility] poppysee d oil FA Active [place] 02-26 00:00: 00 [facility] poppysee d oil FA Active NH MUNOZ NAUSEA 02-26 00:00: 00 [facility] [place] NO KNOWN ALLERGIE S Drug Class Active [facility] Social History Social Habit Start Date Stop Date Quantity Comments Source ASSERTION 2019-10-06 00:00:00 [facility] Alcohol intake 2020-09-20 00:00:00 2020-09-20 00:00:00 Current non-drinker of alcohol (finding) [facility] History of Social function 2020-04-17 00:00:00 2020-04-17 00:00:00 [facility] Tobacco use and exposure 2012-11-08 00:00:00 2012-11-08 00:00:00 Smokeless tobacco non-user [facility] Sex Assigned At 1995 00:00:00 1995 00:00:00 [facility] Smoking Status Start Date Stop Date Source Never smoked tobacco [facility] Medications Ordered Medication Name Filled Medication Name Start Date Stop Date Current Medication? Ordering Clinician Indication Dosage Frequency Signature (SIG) Comments Components Source iohexol (OMNIPAQUE 350 BULK-75 mL) injection 70 mL 2022-09 21:15: 00 06-18 20:57 :00 No [id number] 70mL 70 mL, Intravenou s, ONCE, 1 dose, On 06/18/23 at 1615, Routine [facility] NaCl 0.9% (NS) bolus infusion 1,000 mL 2022-09 19:45: 00 06-19 00:57 :00 No 1000mL at 999 mL/hr, 1,000 mL, IV Piggyback, ONCE, 1 dose, On 06/18/23 at 1445, ZULAY [facility] terconazole 0.4 % vaginal cream 11-02 00:00: 00 11-06 05:59 :00 No [id number] 1{appli cator} Insert 1 Applicator into vagina at bedtime for 3 days. [facility] multivitami n ( VITAMIN) tablet 2013-09 00:00: 00 Yes [id number] 1{tbl} Take 1 Tab by mouth daily. [facility] multivitami n ( VITAMIN) tablet 2013-09 00:00: 00 Yes [id number] 1{tbl} Take 1 Tab by mouth daily. [facility] Immunizations Ordered Immunization Name Filled Immunization Name Date Status Comments Source Tdap 2013-04-18 00:00:00 Completed [facility] Tdap 2013-04-18 00:00:00 Completed [facility] Tdap 2013-04-18 00:00:00 Completed [facility] Tdap 2013-04-18 00:00:00 Completed [facility] Tdap 2013-04-18 00:00:00 Completed [facility] Rubella 2012-11-08 00:00:00 Completed [facility] Varicella (varivax)(chicken pox) 2012-11-08 00:00:00 Completed [facility] Rubella 2012-11-08 00:00:00 Completed [facility] Varicella (varivax)(chicken pox) 2012-11-08 00:00:00 Completed [facility] Rubella 2012-11-08 00:00:00 Completed [facility] Varicella (varivax)(chicken pox) 2012-11-08 00:00:00 Completed [facility] Rubella 2012-11-08 00:00:00 Completed [facility] Varicella (varivax)(chicken pox) 2012-11-08 00:00:00 Completed [facility] Rubella 2012-11-08 00:00:00 Completed [facility] Varicella (varivax)(chicken pox) 2012-11-08 00:00:00 Completed [facility] Rubella Unknown Completed [facility] Varicella (varivax)(chicken pox) Unknown Completed [facility] TDAP Unknown Completed [facility] Vital Signs Vital Name Observation Time Observation Value Comments S ource Systolic blood pressure 2023-06-18 23:00:00 106 mm[Hg] [facility] Diastolic blood pressure 2023-06-18 23:00:00 80 mm[Hg] [facility] Heart rate 2023-06-18 23:00:00 82 /min Don[facility] Respiratory rate 2023-06-18 23:00:00 29 /min [facility] Oxygen saturation in Arterial blood by Pulse oximetry 2023-06-18 23:00:00 100 /min [facility] Body temperature 2023-06-18 18:09:00 36.67 [facility] Body weight 2023-06-18 18:09:00 52.164 kg [facility] BMI 2023-06-18 18:09:00 20.37 kg/m2 [facility] Systolic blood pressure 2019-10-25 21:31:00 103 mm[Hg] [facility] Diastolic blood pressure 2019-10-25 21:31:00 63 mm[Hg] [facility] Heart rate 2019-10-25 21:31:00 92 /min [facility] Body temperature 2019-10-25 21:31:00 37.33 Fifi [facility] Respiratory rate 2019-10-25 21:31:00 16 /min [facility] Body height 2019-10-25 21:31:00 160 cm [facility] Body weight 2019-10-25 21:31:00 52.674 kg [facility] BMI 2019-10-25 21:31:00 20.57 kg/m2 [facility] Procedures Procedure Date / Time Performed Performing Clinician Source POCT TEST 2023-06-18 19:49:00 Neeraj Gray [facility] BASIC METABOLIC PANEL (NA, K, CL, CO2, GLUCOSE, BUN, CREATININE, CA) 2023-06-18 19:48:00 Flynn Gray [facility] CBC WITH DIFF 2023-06-18 19:48:00 [facility] POCT GLUCOSE (AUTOMATED) 2023-06-18 18:32:00 Doc tor Unassigned, [place] [facility] CONSENT/REFUSAL FOR DIAGNOSIS AND TREATMENT 2023-06-18 17:48:41 Doctor Unassigned, [place] [facility] [id number] 2020-06-23 00:00:00 [facility] [id number] 2020-06-23 00:00:00 [facility] AUTHORIZATION FOR RELEASE OF PHI 2019-11-05 06:01:00 Doctor Unassigned, [place] [facility] POCT URINALYSIS W/O SPECIFIC GRAVITY 2019-10-25 21:40:00 Rita Latif [facility] POCT TEST 2019-10-25 21:33:00 Juan Diego Latif [facility] ASSIGNMENT OF BENEFITS 2019-10-25 20:39:24 Docto r Unassigned, [place] [facility] Encounters Start Date/Time End Date/Time Encounter Type Admission Type Attending [facility] Care Facility Care Department Encounter ID Source 2020-06-20 08:30:00 Inpatient Heather Espinoza [facility] [id number] [facility] 2020-06-08 20:26:00 Inpatient Heather Serrano [facility] [id number] [facility] 2023-12-24 00:00:00 2023-12-24 00:00:00 Outpatient GC_GCBZW_Ka diyala_S PRIV PRIV [id number] [facility] 2023-12-23 00:00:00 2023-12-23 00:00:00 Outpatient GC_GCBZW_Ka diyala_S PRIV PRIV [id number] [facility] 2023-12-20 00:00:00 2023-12-20 00:00:00 Outpatient GC_GCBZW_Ka diyala_S PRIV PRIV [id number] [facility] 2023-06-18 13:11:00 2023-06-18 19:15:00 Emergency X FROILAN HU[facility]ES [facility] [id number] [facility] 2023-06-18 13:11:00 2023-06-18 19:15:00 Emergency Froilan [facility] [id number] [id number] 4.2.7.2.686 [id number] [facility] 2020-05-28 11:41:00 2020-05-28 15:08:00 Emergency EM Don-G Jerald ibarra [facility] [id number] [facility] 2020-04-24 14:00:00 2020-04-24 14:00:00 Outpatient Serrano, Heather [facility] [id number] [facility] 2020-02-14 13:00:00 2020-02-14 13:00:00 Outpatient Heather Serrano [facility] [id number] [facility] 2019-12-12 00:00:00 2019-12-12 00:00:00 Letter (Out) Rita Latif [facility] [employer] [facility] CHILD [facility] [id number] 350.1.13.10 4.2.7.2.686 [id number] [facility] 2019-12-12 00:00:00 2019-12-12 00:00:00 Letter (Out) Rita Latif [facility] [id number] 350.1.13.10 4.2.7.2.686 [id number] 2019-11-21 09:45:00 2019-11-21 09:45:00 Outpatient R RITA LATIF [facility] [id number] [facility] 2019-11-05 00:00:00 2019-11-05 00:00:00 Orders Only Doctor Unassigned, [place] [facility] [id number] 350.1.13.10 4.2.7.2.686 [id number] [facility] 2019-11-05 00:00:00 2019-11-05 00:00:00 Orders Only Doctor Unassigned, [place] [facility] [id number] 350.1.13.10 4.2.7.2.686 [id number] 2019-11-02 00:00:00 2019-11-02 00:00:00 Telephone Rita Latif [facility] [id number] 350.1.13.10 4.2.7.2.686 [id number] 2019-11-02 00:00:00 2019-11-02 00:00:00 Telephone Rita Latif [facility] [facility] [facility] & CHILD [facility] [id number] 350.1.13.10 4.2.7.2.686 [id number] [facility] 2019-10-25 14:59:01 2019-10-25 16:20:39 Initial Visit Rita Latif [facility] [employer] [facility] CHILD [facility] [id number] 350.1.13.10 4.2.7.2.686 [id number] [facility] 2019-10-25 14:00:00 2019-10-25 15:17:39 Outpatient R RITA LATIF [facility] [id number] [facility] 2019-10-25 00:00:00 2019-10-25 00:00:00 Orders Only Doctor Unassigned, [place] [facility] [id number] 350.1.13.10 4.2.7.2.686 [id number] [facility] Results Test Description Test Time Test Comments Results Result Co mments Source [facility] WITH [id number] 20:21:45* Test Item Value Reference Range Interpretation Comme nts WBC (test code = 6690-2) 7.55 See_Comment [Automated [employer] Actionality] The system which generated this result transmitted reference range: 4.30 - 11.10 10*3/?L. The reference range was not used to interpret this result as normal/abnormal. RBC (test code = 789-8) 3.97 See_Comment [Automated [employer] Action[employer]] The system which generated this result transmitted reference range: 3.93 - 5.25 10*6/?L. The reference range was not used to interpret this result as normal/abnormal. HGB (test code = 718-7) 12.7 g/dL 11.6-15.0 HCT (test code = 4544-3) 37.2 % 35.7-45.2 MCV (test code = 787-2) 93.7 fL 80.6-95.5 MCH (test code = 785-6) 32.0 pg 25.9-32.8 MCHC (test code = 786-4) 34.1 g/dL 31.6-35.1 RDW-SD (test code = 32926-7) 39.8 fL 39.0-49.9 RDW-CV (test code = 788-0) 11.7 % 12.0-15.5 L PLT (test code = 777-3) 234 See_Comment [Automated messa ge] The system which generated this result transmitted reference range: 166 - 358 10*3/?L. The reference range was not used to interpret this result as normal/abnormal. MPV (test code = 52858-6) 10.8 fL 9.5-12.9 NRBC/100 WBC (test code = 5447220668) 0.0 See_Comment [Automated [employer] ssage] The system which generated this result transmitted reference range: 0.0 - 10.0 /100 WBCs. The reference range was not used to interpret this result as normal/abnormal. NRBC x10^3 (test code = 9197665608) See_Comment [Automated messa ge] The system which generated this result transmitted reference range: 10*3/?L. The reference range was not used to interpret this result as normal/abnormal. GRAN MAT (NEUT) % (test code = 770-8) 65.5 % IMM GRAN % (test code = 9350780485) 0.30 % LYMPH % (test code = 736-9) 23.6 % MONO % (test code = 5905-5) 8.9 % EOS % (test code = 713-8) 1.2 % BASO % (test code = 706-2) 0.5 % GRAN MAT x10^3(ANC) (test code = 2097118576) 4.95 10*3/uL 1.88-7.09 IMM GRAN x10^3 (test code = 4210687200) 0.00-0.06 LYMPH x10^3 (test code = 731-0) 1.78 10*3/uL 1.32-3.29 MONO x10^3 (test code = 742-7) 0.67 10*3/uL 0.33-0.92 EOS x10^3 (test code = 711-2) 0.09 10*3/uL 0.03-0.39 BASO x10^3 (test code = 704-7) 0.04 10*3/uL 0.01-0.07 Lab Interpretation (test code = 92938-7) Abnormal [facility] [id number] 19:49:00* Test Item Value Reference Range Interpretation Comme nts POCT PREG (test code = 1605) Negative On board controls acceptable with C Line (test code = 3574) Yes POCT PREG LOT # (test code = 3575) [id number] POCT PREG TEST DATE ( test code = 3576) 09-14-2024 Lab Interpretation (test cod e = 63656-0) Normal [facility] GLUCOSE (AUTOMATED)2023-06-18 18:33:28* Test Item Value Reference Range Interpretation Comme [facility] POCT GLU (test code = 7193220600) 96 mg/dL 70-110 Lab Interpretation (test cod e = 21505-1) [facility],[id number] 16:03:00 RUN DATE: 06/24/20 [facility] PAGE 1 RUN TIME: 1731 Specimen Inquiry RUN USER: INTERFACE ------- -----PATIENT: ANTELMO VIERA LOC: DEMARCUS Jerez #: [id number] AGE/SX: 24/F ROOM: [facility] RE06/23/20REG DR: Heather Serrano MD : 93 BED: A DIS: STATUS: ADM IN TLOC: SPEC #: [id number] RECD: 06/23/20 STATUS: LINCOLN ALTAMIRANO #: [id number] EDILBERTO: 06/23/20- SUBM DR: Heather Serrano MD ENTERED: 06/23/20 SP TYPE: [facility] DR: ORDERED: LEVEL II SURGIC/2 CODES: P75520 - FALLOPIAN TUBE PROCEDURES: LEVEL II SURGIC (Incomplete) TISSUES: FALLOPIAN TUBE, NOS - BILATERAL FALLOPIAN TUBES CLINICAL [id number] year old, . 39.2 weeks, repeat section (kr) FINAL DIAGNOSIS Right fallopian tube, ligation: - completely transected unremarkable fallopian tube Left fallopian tube, ligation: - completely transected unremarkable fallopian tube CPT code(s): 81433 x2 [facility]/.wpd GROSS DESCRIPTION ANATOMIC SOURCE OF TISSUE (per Requisition): 1. Right fallopian tube 2. Left fallopian tube Each specimen is labeled with the patient's name and medical record number. Specimen #1 is designated "right fallopian tube" and consists of a 2 x 0.6 cm blair-pink tubular tissue. No fimbriae are identified. Sectioning reveals a pinpoint lumen. A international sales representative section is submitted in A1. Specimen #2 is designated "left fallopian tube" and consists of a 1 x 0.6 cm blair-pink tubular tissue. No fimbriae are identified. Sectioning reveals a pinpoint lumen. A international sales representative section is submitted in B1. nz/shaun 06/23/20 CONTINUED ON NEXT PAGE RUN DATE: 06/24/20 [facility] PAGE 2 RUN TIME: 5654 Specimen Inquiry RUN USER: INTERFACE SPEC #: [id number] PATIENT: ANTELMO VIERA #[id number] (Continued) Signed Heaven Swann MD 06/24/20 1603 END OF REPORT CBC W/AUTO [id number] 07:08:00* Test Item Value Reference Range Interpretation Comme [...] pg 27-35 N MEAN CELL HGB CONCETRATION ( test code = MCHC) 32.5 gm/dL 32.2-34.1 N RED CELL DISTRIBUTION WIDTH (test code = RDW) 13.2 % 12.4-16.5 N PLATELET COUNT (test code = PLT) 171 K/mm3 133-385 N MEAN PLATELET VOLUME (test c ode = MPV) 11.0 fl 9.1-12.7 N NEUTROPHIL [...] = BA#) 0.0 K/mm3 RBC MORPHOLOGY REQUIRED (kristina t code = RBCM) NORMAL NORMAL PLATELET MORPHOLOGY REQUIRED (test code = PLTMR) NORMAL NORMAL COVID 19 Asymptomatic IH [id number] 15:19:00* Test Item Value Reference Range Interpretation Comme nts COVID 19 Asymptomatic IH AG (test code = COVNONPUIAG) NEGATIVE NEGATIVE This test has be en authorized only for the detection ofproteins from SARS-CoV-2, not for any other viruses orpathogens. Negative results should be treated as presumptive andconfirmed with a molecular assay, if necessary for patientmanagement. Negative results do not rule out COVID-19 andshould not be used as the sole basis for treatment orpatient management decisions, including infection controldecisions. Negative results should be considered in thecontext of a patient's recent exposures, history and thepresence of clinical signs and symptoms consistent withCOVID-19. This test has not been FDA cleared or approved; the test hasbeen authorized by FDA under an Emergency Use Authorization(EUA) for use by laboratories certified under the CLIA thatmeet the requirements to perform moderate, high or waivedcomplexity tests. This test is authorized for use at thePoint of Care (POC), i.e., in patient care settingsoperating under a CLIA Certificate of Waiver, Certificate ofCompliance, or Certificate of Accreditation. This test is only authorized for the duration of thedeclaration that circumstances exist justifying theauthorization of emergency use of in vitro diagnostic testsfor detection and/or diagnosis of COVID-19 under Amezzrd575(b)(1) of the Act, 21 U.S.C. 360bbb-3(b)(1), unless theauthorization is terminated or revoked sooner. AG HEPATITIS B [id number] 14:55:00* Test Item Value Reference Range Interpretation Comme nts AG HEPATITIS B SURFACE (test code = HBSAG) NONREACTIVE NONREACTIVE IS CONSENT FORM SIGNED FOR HIV TESTING? YAB HEPATITIS C [id number] 14:55:00* Test Item Value Reference Range Interpretation Comme nts AB HEPATITIS C (test code = HCVAB) NONREACTIVE NONREACTIVE SIGNAL TO CUTOFF (test code = CUTOFF) 0.06 <0.80 N IS CONSENT FORM SIGNED FOR HIV TESTING? YAB [id number] 14:55:00* Test Item Value Reference Range Interpretation Comme nts AB TREPONEMA (test code = TREPAB) NONREACTIVE NONREACTIVE IS CONSENT FORM SIGNED FOR HIV TESTING? YENB HIV 1 14:55:00* Test Item Value Reference Range Interpretation Comme nts AB HIV 1 2 (test code = LOZ04FC) NONREACTIVE NONREACTIVE Done by [employer] Smarter Remark[employer] 4th Gen HIV Ag/Ab Combo Screen IS CONSENT FORM SIGNED FOR HIV TESTING? YAG HEPATITIS B [id number] 14:21:00* Test Item Value Reference Range Interpretation Comme nts AG HEPATITIS B SURFACE (test code = HBSAG) NONREACTIVE NONREACTIVE IS CONSENT FORM SIGNED FOR HIV TESTING? YAB HEPATITIS C [id number] 14:21:00* Test Item Value Reference Range Interpretation Comme nts AB HEPATITIS C (test code = HCVAB) NONREACTIVE SIGNAL TO CUTOFF (test code = CUTOFF) <0.80 IS CONSENT FORM SIGNED FOR HIV TESTING? YENB [id number] 14:21:00* Test Item Value Reference Range Interpretation Comme nts AB TREPONEMA (test code = TREPAB) NONREACTIVE NONREACTIVE IS CONSENT FORM SIGNED FOR HIV TESTING? YENB HIV 1 14:21:00* Test Item Value Reference Range Interpretation Comme nts AB HIV 1 2 (test code = JFB03VV) NONREACTIVE IS CONSENT FORM SIGNED FOR HIV TESTING? YURINALYSIS W/O [id number] 13:43:00 * Test Item Value Reference Range Interpretation Comme nts UA GLUCOSE DIPSTICK (test co de = DGLUU) NEGATIVE NEGATIVE UA KETONE DIPSTICK (test cod e = KETU) NEGATIVE NEGATIVE UA PROTEIN DIPSTICK (test co de = PROU) NEGATIVE NEGATIVE IS NURSE PERFORMING TEST? NCBC W/AUTO [id number] 13:41:00* Test Item Value Reference Range Interpretation Comme [...] pg 27-35 N MEAN CELL HGB CONCETRATION ( test code = MCHC) 32.9 gm/dL 32.2-34.1 N RED CELL DISTRIBUTION WIDTH (test code = RDW) 12.8 % 12.4-16.5 N PLATELET COUNT (test code = PLT) 200 K/mm3 133-385 N MEAN PLATELET VOLUME (test c ode = MPV) 10.7 fl 9.1-12.7 N NEUTROPHIL % (test code = NT%) 70.5 [...] = BA#) 0.0 K/mm3 RBC MORPHOLOGY REQUIRED (kristina t code = RBCM) NORMAL NORMAL PLATELET MORPHOLOGY REQUIRED (test code = PLTMR) NORMAL NORMAL - US FET BIO PH OK W/O [id number] 23:41:00Patient Name: ANTELMO VIERA Unit No: [id number] EXAMS: CPT CODE: [id number] US FET BIO PH OK W/O NST 85209 Limited obstetrical ultrasound dated 06/08/2020. HISTORY: 37 week . Decreased movement. A limited transabdominal obstetrical ultrasound was performed reveals presence of a single intrauterine in cephalic position. cardiac activity is documented with a heart rate of 144 bpm. The placenta is posteriorly positioned and demonstrates grade 2 echotexture. There is no e vidence of placenta previa. Amniotic fluid volume appears [...] and signed by: Gilberto Chen MD CC: aKyy Martin MD Technologist: TOR SRIVASTAVA, MICAELA, RVT Probe: Trnscrbd D/ (2341) t.SDR.DMM Orig Print D/T: S: 06/08/2020 (2344) [facility] NAME: ANTELMO VIERA Radiology Department PHYS: Kayy Hudson MD [address] : 1995 AGE: 24 SEX: [place] [id number] LOC: [facility] PHONE #: [phone] EXAM DATE: 06/08/2020 STATUS: REG ER FAX #: RAD NO: Page 1 Signed Report Patient Name: ANTELMO VIERA Unit No: [id number] EXAMS: CPT CODE: [id number] US FET BIO PH OK W/O NST 21451 (Continued) [facility] NAME: AYLINALFONSOANTELMO Radiology Department PHYS: Kayy Hudson MD [address] : 1995 AGE: 24 SEX:[place] [address] LOC: [facility] PHONE #: [phone] EXAM DATE: 06/08/2020 STATUS: REG ER FAX #: [phone] RAD NO: Page 2 Signed Report- US FLW [id number] 15:32:00Patient Name: ANTELMO VIERA Unit No: [id number] EXAMS: C[place]: [id number] [address] [facility] [address] [place], [place] [address] OBSTETRICAL ULTRASOUND REPORT Pat. Name: ANTELMO VIERA. No: [id number] Study Date: 04/24/2020 2:22pm , Age: 8 1995, 24 Pregnancies: 5, Para 3 LMP: 09/22/2019 GA by LMP: 30w5d GA by 1st: 30w5d GA by US: 29w3d GA Selected: 30w5d (LMP) LAINEY: 06/28/2020 Referring MD: HEATHER SERRANO Tactical Intelligence Officer: Candi Barfield RDMS CPT4: USPREGFU MEASUREMENTS AGE GROWTH EVALUATION Measurement GA Range Srce %for GA Ratios ----- ---- ------- BPD 7.4 cm 30w0d (28e1i-51v8a) Hadl BPD 27% FL/BPD 0.77 (0.71 - 0.87) HC 27.5 cm 29w5d (29y3v-73i2t) Hadl HC 30% FL/AC 0.23 (0.20 - 0.24) APD 7.4 cm APD HC/AC 1.09 (0.97 - 1.16) TAD 8.6 cm TAD CI 0.79 (0.70 - 0.86) AC 25.2 cm 29w3d (27w1d- 31w4d) Hadl AC 23% FL 5.7 cm 29w4d (18m5r-46w2w) Hadl FL 26% HL 5.0 cm 29w2d (66n5j-08q1v) [place] HL 26% GA for sonogram 29w3d (93w4g-58f2l) Weight Est imate: based on (BPD,HC,AC,FL) Hadlock Weight: 1430 gm (2604-8702) Hadlo : 3lbs, 2oz Normal: 1579 gm (8121-5183) Brenn Wt% 37% for 30.7 wks Cervical [...] previa. Amniotic fluid volume is normal. [facility] NAME: ANTELMO VIERA Radiology Department PHYS: Heather Loyd MD [address] : 1995 AGE: 24 SEX: F [place], [place] [address] LOC: [facility] PHONE #: [phone] EXAM DATE: 04/24/2020 STATUS: REG CLI FAX #: [phone] RAD NO: Page 1 Signed Report (CONTINUED) Patient Name: ANTELMO VIERA Unit No: [id number] EXAMS: CPT CODE: [id number] [place] 15821 (Continued) Uterus and adnexa: No significant abnormality is seen. Thank you for allowing us to participate in the care of this patient. Pa Capone M.D. Electronic Signature 04/24/2020 03:32pm at 1532 Reported and signed by: Pa Capone MD CC: Technologist: Candi Barfield RDMS Probe: Trnscrbd D/ (1532) Adelita MCCABE Orig Print D/T: S: 04/24/2020 (1532) [facility] NAME: ANTELMO VIERA Radiology Department PHYS: Heather Loyd MD [address] : 1995 AGE: 24 SEX: F [place] [address] LOC: [facility] PHONE #: [phone] EXAM DATE: 04/24/2020 STATUS: REG CLI FAX #: [phone] RAD NO: Page 2 Signed Report Patient Name: ANTELMO VIERA Unit No: [id number] EXAMS: CPT CODE: [id number] US FLW UP 08674 (Continued) [facility] NAME:AYLINANTELMO Radiology Department PHYS: Heather Loyd MD [address] : 1995 AGE: 24 SEX: F [place] [address] LOC: [facility] PHONE #: [phone] EXAM DATE: 04/12 STATUS: REG CLI FAX #: [phone] RAD NO: Page 3 Signed Report- US PREG AFTER [id number] 14:10:00Patient Name: ANTELMO VIERA Unit No: [id number] EXAMS: CPT CODE: [id number] US PREG AFTER TRI [address] [facility] [address], [place] [address] OBSTETRICAL ULTRASOUND REPORT --------- Pat. Name: ANTELMO VIERA Pat. No: [id number] Study Date: 02/14/2020 12:59pm , Age: 8 1995, 24 Pregnancies: 5, Para 3 LMP: 09/22/2019 GA by LMP: 20w5d GA by US: 20w0d GA Selected: 20w5d (From Known E) LAINEY: 06/28/2020 Referring MD: HEATHER SERRANO Tactical Intelligence Officer: Amy Valdivia RDMS CPT4: [id number] Admitting MD: HEATHER SERRANO Hist/Ind: ANATOMY SCAN 1 MEASUREMENTS AGE GROWTH EVALUATION Measurement GA Range Srce %for GA Ratios ----- ---- ------- BPD 4.4 cm 19w2d (92i1i-55z5z) Hadl BPD <05 FL/BPD 0.79 HC 17.0 cm 19w4d (17w6d- 21w1d) Hadl HC 16% FL/AC 0.23 APD 5.1 cm APD HC/AC 1.11(1.06 - 1.24) TAD 4.6 cm TAD CI 0.75 (0.70 - 0.86) AC 15.3 cm 20w1d (73u7w-19x5m) Hadl AC 38% FL 3.5 cm 20w5d (52l1m-71h7r) Hadl FL 49% HL 3.2 cm 20w5d (04o5t-77x7r) [place] HL 50% GA for sonogram 20w0d(09s5y-42v2h) Weight Estimate: based on (BPD,HC,AC,FL) Hadlock Weight: 362 gm (309-415) Hadlock : 0lbs, 12oz Cervical Length: 4.6 cm Heart Rate: 136 bpm MATERNAL ANATOMY Ovaries LxHxW (cm) Right 2.7 x 1.7 x 1.9 Vol: 4.6cc Ovarian Cysts LxHxW (cm) R1: 2.0 x 1.1 x 1.5 -------- CLINICAL SUMMARY Type of Gestation: [place] Intrauterine in variable presentation. size is appropriate for gestational age. motion and organsseen: heart motion seen Four chamber heart observed Left ventricular outflow tract (LVOT) seen [facility] NAME: ANTELMO VIERA Radiology Department PHYS: Heather Loyd MD [address] : 1995 AGE: 24 SEX: F [place] [address] LOC: [facility] PHONE #: [phone] EXAM DATE: 02/14/2020 STATUS: REG CLI FAX #: [phone] RAD NO: Page1 Signed Report (CONTINUED) Patient Name: ANTELMO VIERA Unit No: [id number] EXAMS: CPT CODE: [id number] US PREG AFTER 1ST TRI 32279 (Continued) Right ventricular outflow tract (RVOT) seen [...] Farheen Jarrett MD CC: Heather Serrano MD Technologist: Amy Valdivia RDMS Probe: Trnscrbd D/ (1410) t.[email or web address] Orig Print D/T: S: 02/14/2020 (1410) [facility] NAME: ANTELMO VIERA Radiology Department PHYS: Heather Loyd MD [address] : 1995 AGE: 24 SEX: F [place] [address] LOC: [facility] PHONE #: [phone] EXAM DATE: 02/14/2020 STATUS: REG CLI FAX #: [phone] RAD NO: Page 2 Signed Report Patient Name: ANTELMO VIERA Unit No: [id number] EXAMS: CPT CODE: [id number] US PREG AFTER 1ST TRI 29285 (Continued) [facility] NAME: ANTELMO VIERA Radiology Department PHYS: Heather Loyd MD [address] : 1995 AGE: 24 SEX: F [place] [address] LOC: Andrea.RAD PHONE #: [phone] EXAM DATE: 02/14/2020 STATUS: REG CLI FAX #: [phone] RAD NO: Page 3 Signed ReportPOCT URINALYSIS W/O SPECIFIC [id number] 21:40:00* Test Item Value Reference Range Interpretation Comme nts POCT PH U (test code = 3254) . 5-8 POCT U LEUK EST (test code = 3263) . Negative - N egative POCT U NIT (test code = 3262) . Negative - Negati ve POCT U PROT (test code = 3259) Trace Negative - Negat kt POCT U GLU (test code = 3256) Neg Negative - Negati ve POCT U KETONE (test code = 3258) . Negative - Neg ative POCT U BLD (test code = 3257) . Negative - Negati ve [facility] URINALYSIS W/O SPECIFIC [id number] 21:40:00* Test Item Value Reference Range Interpretation Comme nts POCT PH U (test code = 3254) . 5-8 POCT U LEUK EST (test code = 3263) . Negative - N egative POCT U NIT (test code = 3262) . Negative - Negati ve POCT U PROT (test code = 3259) Trace Negative - Negat kt POCT U GLU (test code = 3256) Neg Negative - Negati ve POCT U KETONE (test code = 3258) . Negative - Neg ative POCT U BLD (test code = 3257) . Negative - Negati ve [facility] [id number] 21:33:00* Test Item Value Reference Range Interpretation Comme nts POCT PREG (test code = 1605) Positive On board controls acceptable with C Line (test code = 3574) Yes POCT PREG LOT # (test code = 3575) POCT PREG TEST DATE ( test code = 3576) [facility] [id number] 21:33:00* Test Item Value Reference Range Interpretation Comme nts POCT PREG (test code = 1605) Positive On board controls acceptable with C Line (test code = 3574) Yes POCT PREG LOT # (test code = 3575) POCT PREG TEST DATE ( test code = 3576) [facility] Notes Date/Time Note Provider Source 2020-06-26 12:49:00 [facility] ([facility]) OB Disch REPORT#:[id number] REPORT STATUS: Signed DATE:06/26/20 TIME: 1249 PATIENT: ANTELMO VIERA UNIT #: [id number] ROOM/BED: [address] : [birth year] AGE: 24 SEX: F ATTEND: Heather Serrano MD ADM AUTHOR: Heather Serrano MD * ALL edits or amendments must be made on the electronic/computer document * Subjective Subjective EGA at delivery (wks/days): 39 weeks (2 days) Comments: POSTOPERATIVE C/S DAY #3 SUBJECTIVE: No complaints. Scant lochia. Tolerating a regular diet. Ambulatory. Voiding spontaneously. Nursing. Passing flatus. OBJECTIVE: Vital signs stable. Afebrile Chest- clear to auscultation. Heart- regular rate and rhythm without murmurs/ gallops Abdomen - soft, Nontender, active bowel sounds. Fundus is firm, low and nontender. Incision - dry/intact/no erythema ASSESSMENT: Recovering well after section PLAN: Doing well and ready for discharge home. RX: Jennings 5/325 mg 1-2 po q 6 hours prn pain #30 RX: Motrin 600 mg 1 tab po q 6 hours prn pain # 30 Resume PNV and iron as before delivery. Return to office in 2 weeks. Discharge instructions have been given. Objective General VS: Vital Signs Date Temp Pulse Resp B/P B/P Mean Pulse Ox FiO2 06/25-06/26 98.1-98.9 61-80 18-20 108-118/67-77 Last Documented: Result Date Time B/P 11506/26 Temp 98.3 06/26 07 Pulse 80 06/26 0738 Resp 20 06/26 07 Pulse Ox 98 06/23 1636 B/P Mean 92.0 06/23 1245 Patient Weight Weight (lb): 143 Weight (oz): Weight (kg): 64.864 Results Findings/Data: Laboratory Tests Test Result Date Time Hematology WBC (6.6 - 12.1 K/mm3) 8.9 06/24 600 RBC (3.45 - 5.01 M/mm3) 2.95 L [...] (14.3 - 34.3 %) 11.2 L 06/24 600 [place] % (Auto) (5.1 - 10.4 %) 9.8 06/24 600 Eos % (Auto) (0.1 - 3.0 %) 0.7 06/24 600 Baso % (Auto) (0.1 - 1.0 %) 0.2 06/24 600 Neut # (Auto) (K/mm3) 7.0 06/24 600 Lymph # (Auto) (K/mm3) 1.0 06/24 600 [place] # (Auto) (K/mm3) 0.9 06/24 600 Eos # (Auto) (K/mm3) 0.06 06/24 600 Baso # (Auto) (K/mm3) 0.0 06/24 600 Serology Treponema pallidum Ab (NONREACTIVE) NONREACTIVE 06/20 1030 Hep Bs Antigen (NONREACTIVE) NONREACTIVE 06/20 1030 Hepatitis C Antibody (NONREACTIVE) NONREACTIVE 06/20 1030 Hep C Ab Signal/Cutoff (<0.80) 0.06 06/20 1030 HIV 1 2 Antibody (NONREACTIVE) NONREACTIVE 10/09 1030 SARS-CoV-2 Ag (Rapid) (NEGATIVE) NEGATIVE 06/20 1050 Urines Urine Protein (NEGATIVE) NEGATIVE 06/20 1015 Urine Glucose (UA) (NEGATIVE) NEGATIVE 06/20 1015 Urine Ketones (NEGATIVE) NEGATIVE 06/20 1015 Preop H H = 10.7/32.5 Blood Type = A+ Discharge Summary General Problem List/A P: 1. 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 Previous delivery, antepartum condition or complication 3. 39 weeks gestation of 4. Single live 5. Multiparity 6. Encounter for female sterilization procedure 7. delivery w/o mention of indication, anam maharaj Date of admission: Date of admission: 06/23/2020 Date of discharge: 06/26/2020 Admission diagnosis: as per Problem List Hospital course: repeat admit, tubal ligation w/, epidural anesthesia, nml postop/postpart care Procedures: repeat CS delivery (LCT incision), tubal ligation at CS Discharge condition: stable Discharge [...] an uncomplicated course. Blood type A+/rubella immune/RPR nonreactive/HBSAg negative/HIV negative. She had an uncomplicated repeat low cervical transverse section and modified Becki bilateral tubal sterilization on 06/23/2020 with normal pelvic anatomy noted. Female, 7#2oz, Apgars 8/8. She went to NICU for some tachypnea and oxygen need after . Postoperatively, mother has had an uneventful recovery. On POD #1, the Tomas catheter was removed and she voided spontaneously, began ambulating, and was advanced to a regular diet. On POD #2, she continued to improve. She was changed to oral pain medication with adequate pain relief. She continued to ambulate further, and lochia was diminishing. By POD #3 she is recovering well and is ready and stable for discharge home. She remains afebrile, her lochia is scant, she tolerates the regular diet and voids spontaneously. Fundus is firm and nontender, below the umbilicus. The incision is clean, dry, intact and without erythema. Baby is released from NICU and is able to go home as well. Discharge instructions have been given in verbal and printed form. She is to return to the office in 2 weeks for follow-up. She has been advised to call sooner for heavy bleeding, increasing or abnormal pain, fevers, or any incisional problems including redness/drainage/wound separation. Baby A: status: live born Gender: female ("Sofía") 1 minute: 8 5 minutes: 8 Anomalies: None seen Nursing data: The data set between the solid lines has been imported from nursing documentation. Any exceptions have been noted below under Provider comments. Delivery date infant A: 06/23/20 Delivery time A: 0943 Birthweight (gm) A: 3220 / 7#2 Gender A: Female 1 minute infant A: 8 5 minutes infant A: 8 Plan: routine care, discharge today (if baby can go home) Vaginal packing at delivery: No Discharge Instructions Instructions: routine instr sheet given, instr and warnings rev'd, specific instr as noted Diet: Resume Home Diet/Feeds Activity: No Driving, No [place] for 6 Wks, No Lifting >10lbs, No Sports/ Activities, No Strenuous Activity, No Swimming, Shower Only, Walk Additional discharge routines: Attending Follow-Up (2 weeks) Wound/dressing care: Clean wound daily, Keep wound clean and dry, OK to shower tomorrow Work/school restrictions: No work/school x 6 weeks Contraception discussed: BTL at C/S Discharge meds: Continue taking these medications: PNV/FE FUM/FA ( MULTIVITAMIN) 28 MG IRON-800 MCG TAB 1 TABLET ORAL DAILY. {FERROUS [...] Consultation performed: anesthesia Reason for consultation: epidural at 1256 RPT #:[id number] END OF REPORT [facility] 2020-06-26 10:16:00 [facility] ([facility]) OB Postpart Progr Note REPORT#:[id number] REPORT STATUS: Signed DATE:06/26/20 TIME: 1016 PATIENT: ANTELMO VIERA UNIT #: [id number] ROOM/BED: [address] : [birth year] AGE: 24 SEX: F ATTEND: Heather Serrano MD ADM AUTHOR: Heather Serrano MD * ALL edits or amendments must be made on the electronic/computer document * Subjective Subjective EGA at delivery (wks/days): 39 weeks (2 days) Comments: POSTOPERATIVE C/S DAY #3 SUBJECTIVE: No complaints. Scant lochia. Tolerating a regular diet. Ambulatory. Voiding spontaneously. Nursing. Passing flatus. She thinks the baby will be ready for discharge later today. OBJECTIVE: Vital signs stable. Afebrile Chest- clear to auscultation. Heart- regular rate and rhythm without murmurs/ gallops Abdomen - soft, Nontender, active bowel sounds. Fundus is firm, low and nontender. Incision - dry/intact/no erythema ASSESSMENT: Recovering well after section PLAN: Doing well and ready for discharge home. RX: Jennings 5/325 mg 1-2 po q 6 hours prn pain #30 RX: Motrin 600 mg 1 tab po [...] B/P 115/77 06/26 07 Temp 98.3 06/26 07 Pulse 80 06/26 0738 Resp 20 06/26 738 Pulse Ox 98 06/23 1636 B/P Mean 92.0 06/23 1245 Patient Weight Weight (lb): 143 Weight (kg): 64.864 Result Findings/data: Laboratory Tests Test Result Date Time Hematology WBC (6.6 - 12.1 K/mm3) 8.9 06/24 600 RBC (3.45 - 5.01 M/mm3) 2.95 L 06/24 600 Hgb (10.7 - 13.9 g/dL) 9.6 L 06/24 0600 Hct (32.1 - 42.1 %) 29.5 L 06/24 600 MCV (84.1 - 94.8 fL) 100 H 06/24 06 MCH (27 - 35 pg) 32.5 06/24 600 MCHC (32.2 - 34.1 gm/dL) 32.5 06/24 0600 RDW (12.4 - 16.5 %) 13.2 06/24 600 Plt Count (133 - 385 K/mm3) 171 06/24 0600 MPV (9.1 - 12.7 fl) 11.0 06/24 0600 Neut % (Auto) (56.5 - 79.4 %) 77.8 06/24 0600 Lymph % (Auto) (14.3 - 34.3 %) 11.2 L 06/24 600 [place] % (Auto) (5.1 - 10.4 %) 9.8 06/24 0600 Eos % (Auto) (0.1 - 3.0 %) 0.7 06/24 600 Baso % (Auto) (0.1 - 1.0 %) 0.2 06/24 600 Neut # (Auto) (K/mm3) 7.0 06/24 600 Lymph # (Auto) (K/mm3) 1.0 06/24 600 [place] # (Auto) (K/mm3) 0.9 06/24 600 Eos # (Auto) (K/mm3) 0.06 06/24 600 Baso # (Auto) (K/mm3) 0.0 06/24 600 Serology Treponema pallidum Ab (NONREACTIVE) NONREACTIVE 06/20 1030 Hep Bs Antigen (NONREACTIVE) NONREACTIVE 06/20 1030 Hepatitis C Antibody (NONREACTIVE) NONREACTIVE 06/20 1030 Hep C Ab Signal/Cutoff (<0.80) 0.06 06/20 1030 HIV 1 2 Antibody (NONREACTIVE) NONREACTIVE 06/20 1030 SARS-CoV-2 Ag (Rapid) (NEGATIVE) NEGATIVE 06/20 1050 Urines Urine Protein (NEGATIVE) NEGATIVE 06/20 1015 Urine Glucose (UA) (NEGATIVE) NEGATIVE 06/20 1015 Urine Ketones (NEGATIVE) NEGATIVE 06/20 1015 Preop H H = 10.7/32,5 Blood Type = A+ Diagnosis, Assessment Plan Diagnosis, Assessment Plan Problem List/A P: 1. 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 Previous delivery, antepartum condition or complication 3. 39 weeks gestation of 4. Single live 5. Multiparity 6. Encounter for female sterilization procedure 7. delivery w/o mention of indication, deliv, curr hospitaliz Assessment: nml progress, iron deficiency anemia Plan: routine care, discharge today (if baby can go home) Consultation(s): Consultation performed: anesthesia Reason for consultation: epidural Plan discussed with: patient, spouse/partner at 1249 RPT #:[id number] END OF REPORT [facility] 2020-06-25 12:16:00 [facility]) OB Postpart Progr Note REPORT#:[id number] REPORT STATUS: Signed DATE:06/25/20 TIME: 1216 PATIENT: ANTELMO VIERA UNIT #: [id number] ROOM/BED: [facility]-A : [birth year] AGE: 24 SEX: F ATTEND: Heather Serrano MD ADM AUTHOR: Heather Serrano MD * ALL edits or amendments must be made on the electronic/computer document * Subjective Subjective EGA at delivery (wks/days): 39 weeks (2 days) Comments: POSTOPERATIVE C/S DAY #2 SUBJECTIVE: No complaints. Scant lochia. Tolerating a regular diet. Ambulatory. Voiding spontaneously. Nursing. Passing flatus. Incisional pain controlled on po pain meds. Baby still in NICU 2 and reportedly improving. OBJECTIVE: Vital signs stable. Afebrile Chest- clear to auscultation Heart- regular rate and rhythm, without murmurs or gallops Abdomen- soft, nontender, active bowel sounds. Fundus is firm/low/ nontender Incision- dry, intact, no erythema ASSESSMENT: Recovering well after section PLAN: Continue care per orders. Ambulate ad michael. May shower. Objective General VS: Vital Signs Date Temp Pulse Resp B/P B/P Mean Pulse Ox FiO2 06/24-06/25 98.2-99.0 69-82 18-20 104-115/-76 Last Documented: Result Date Time B/P 06/25 08 Temp 98.3 06/25 08 Pulse 69 06/25 0812 Resp 20 06/25 08 Pulse Ox 98 06/23 1636 B/P Mean 92.0 06/23 1245 Patient Weight Weight (lb): 143 Weight (kg): 64.864 Result Results: no new labs Diagnosis, Assessment Plan Diagnosis, Assessment Plan Problem List/A P: 1. 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 Previous delivery, antepartum condition or complication 3. 39 weeks gestation of 4. Single live 5. Multiparity 6. Encounter for female sterilization procedure 7. delivery w/o mention of indication, deliv, curr hospitaliz Assessment: nml progress, iron deficiency anemia Plan: routine care Consultation(s): Consultation performed: anesthesia Reason for consultation: epidural Plan discussed with: patient, spouse/partner at 1224 [facility] #:[id number] END OF REPORT [facility] 2020-06-24 13:03:00 [facility] ([facility]) OB Postpart Progr Note REPORT#:[id number] REPORT STATUS: Signed DATE:06/24/20 TIME: 1303 PATIENT: ANTELMO VIERA UNIT #: [id number] ROOM/BED: [address] : [birth year] AGE: 24 SEX: F ATTEND: Heather Serrano MD ADM AUTHOR: Heather Serrano MD * ALL edits or amendments must be made on the electronic/computer document * Subjective Subjective EGA at delivery (wks/days): 39 weeks (2 days) Comments: POSTOPERATIVE C/S DAY #1 SUBJECTIVE: No complaints. Scant lochia. Tolerating a regular diet. Ambulatory. Voiding spontaneously. Pumping. Passing flatus. Incisional pain controlled with epidural and po pain meds.Baby improving and coming out to Level 2 NICU today [...] intact, no erythema ASSESSMENT: Recovering well after section PLAN: Continue care per orders. Ambulate ad michael Objective General VS: Vital Signs [...] (Auto) (14.3 - 34.3 %) 11.2 L [place] % (Auto) (5.1 - 10.4 %) 9.8 Eos % (Auto) (0.1 - 3.0 %) 0.7 Baso % (Auto) (0.1 - 1.0 %) 0.2 Neut # (Auto) (K/mm3) 7.0 Lymph # (Auto) (K/mm3) 1.0 [place] # (Auto) (K/mm3) 0.9 Eos # (Auto) (K/mm3) 0.06 Baso # (Auto) (K/mm3) 0.0 Preop H H = 10.7/32.5 Diagnosis, Assessment Plan Diagnosis, Assessment Plan Problem List/A P: 1. 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 Previous delivery, antepartum condition or complication 3. 39 weeks gestation of 4. Single live 5. Multiparity 6. Encounter for female sterilization procedure 7. delivery w/o mention of indication, deliv, curr hospitaliz 8. Seizure disorder during , delivered Assessment: nml progress, iron deficiency anemia Plan: routine care Consultation(s): Consultation performed: anesthesia Reason for consultation: epidural Plan discussed with: patient, spouse/partner at 1308 RPT #:[id number] END OF REPORT [facility] 2020-06-24 13:03:00 [facility] ([facility]) OB Postpart Progr Note REPORT#:[id number] REPORT STATUS: Signed DATE:06/24/20 TIME: 1303 PATIENT: ANTELMO VIERA UNIT #: [id number] ROOM/BED: [address] : [birth year] AGE: 24 SEX: F ATTEND: Heather Serrano MD ADM AUTHOR: Heather Serrano MD * ALL edits or amendments must be made on the electronic/computer document * See Addendum Subjective Subjective EGA at delivery (wks/days): 39 weeks (2 days) Comments: POSTOPERATIVE C/S DAY #1 SUBJECTIVE: No complaints. Scant lochia. Tolerating a regular diet. Ambulatory. Voiding spontaneously. Pumping. Passing flatus. Incisional pain controlled with epidural and po pain meds.Baby improving and coming out to Level 2 NICU today [...] intact, no erythema ASSESSMENT: Recovering well after section PLAN: Continue care per orders. Ambulate ad michael Objective General VS: Vital Signs [...] (Auto) (14.3 - 34.3 %) 11.2 L [place] % (Auto) (5.1 - 10.4 %) 9.8 Eos % (Auto) (0.1 - 3.0 %) 0.7 Baso % (Auto) (0.1 - 1.0 %) 0.2 Neut # (Auto) (K/mm3) 7.0 Lymph # (Auto) (K/mm3) 1.0 [place] # (Auto) (K/mm3) 0.9 Eos # (Auto) (K/mm3) 0.06 Baso # (Auto) (K/mm3) 0.0 Preop H H = 10.7/32.5 Diagnosis, Assessment Plan Diagnosis, Assessment Plan Problem List/A P: 1. 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 Previous delivery, antepartum condition or complication 3. 39 weeks gestation of 4. Single live 5. Multiparity 6. Encounter for female sterilization procedure 7. delivery w/o mention of indication, deliv, curr hospitaliz 8. Seizure disorder during , delivered Assessment: nml progress, iron deficiency anemia Plan: routine care Consultation(s): Consultation performed: anesthesia Reason for consultation: epidural Plan discussed with: patient, spouse/partner at 1308 Addendum 1: 06/24/20 1313 by Heather Serrano MD Please disregard "Seizure Disorder in " in the Problem List. She does not have this condition. at 1314 RPT #:[id number] END OF REPORT [facility] 2020-06-23 10:57:00 [facility] ([facility]) OB Admission / H P REPORT#:[id number] REPORT STATUS: Signed DATE:06/23/20 TIME: 1057 PATIENT: ANTELMO VIERA UNIT #: [id number] ROOM/BED: [facility] : [birth year] AGE: 24 SEX: F ATTEND: Heather Serrano MD ADM AUTHOR: Heather Serrano MD * ALL edits or amendments must be made on the electronic/computer document * OB History HPI: [id number] [address] PATIENT NAME: ANTELMO VIERA ADMIT DATE: ACCOUNT NO: [id number] ROOM NO: AGE: 24 SEX: F ADMITTING PHYSICIAN: Heather Serrano MD ATTENDING PHYSICIAN: Heather Serrano MD ADMISSION DATE: 06/23/2020 ADMITTING DIAGNOSES: 1. Intrauterine at 39 weeks 2 days gestation. 2. Prior section x3. 3. History of genital herpes, no current outbreak. 4. Iron deficiency anemia complicating . 5. Multiparity. 6. Encounter for permanent bilateral tubal sterilization. HISTORY OF PRESENT ILLNESS: Antelmo Viera is a 24-year-old 7, para 3, AB 3 lady, last menstrual period 09/22/2019, LAINEY 06/28/2020, estimated gestational age on admission is 39 weeks and 2 days. She has had 3 prior section deliveries, and we planned repeat section as is contraindicated at this point. She has also completed her family and requests permanent bilateral tubal sterilization at the time of section. She has a history of genital herpes and had an outbreak around 36 weeks that was treated with Valtrex, and she continues prophylactic daily Valtrex since that time without any additional outbreaks. Her course has been fairly normal. She did have a fall in the bathtub on 05/28/2020 and had a visit in the OB ED. She had some mild low back pain after that, and evaluation revealed normal fetus and reactive external monitoring. She did not hit her stomach or uterus. She has had several yeast infections during the treated with terconazole successfully. She has also had a very irritable uterus since about 35 weeks of gestation, but these have not been progressive, and she has been seen in the maternal assessment center a few times, and labor has been ruled out. ALLERGIES: NO KNOWN DRUG ALLERGIES. MEDICATIONS: vitamins and iron. PAST SURGICAL HISTORY: 1. Primary low cervical transverse section at 38 weeks on 07/04/2013. 2. Repeat section at 39 weeks 2 days on 02/17/2015. 3. Repeat low cervical transverse section at 39.1 weeks on 02/16/2018. ILLNESSES: Chickenpox as a child, history of genital herpes type 2 diagnosed by viral culture and lesions in 08/2016. MAJOR INJURIES: None. SOCIAL HISTORY: She is single. She is a nonsmoker. She denies drug or alcohol use. 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 OBSTETRIC AND GYNECOLOGIC HISTORY: Menarche at age 12 with a 28-day interval. She has a history of chlamydia in 2012, history of HPV in 2016, and history of genital herpes diagnosed in 2015. She has a history of 3 spontaneous first trimester miscarriages in 08/2012, 08/2019, and 06/2019. FAMILY HISTORY: Mother with type 2 diabetes, sister with hypertension, and mother with breast cancer. REVIEW OF SYSTEMS: Negative x10 point review of systems except for irritable uterus with frequent Hustle James contractions and the expected musculoskeletal aches and discomforts of late . PHYSICAL EXAMINATION: GENERAL: She is a well-developed and well-nourished female. VITAL SIGNS: Blood pressure is 105/67. Weight is 143.2, pre weight is 114 pounds. Height 5 feet 2 inches. HEENT: Normocephalic and atraumatic. NECK: Supple. No thyromegaly or lymphadenopathy. CHEST: Clear to auscultation, with equal and bilateral breath sounds. HEART: Regular rate and rhythm, without murmurs or gallops. BREASTS: Deferred as noncontributory. ABDOMEN: Soft, nontender. Good bowel sounds. No hepatosplenomegaly. No costovertebral angle tenderness. No evidence of hernia. The uterus is soft and enlarged to 38 cm fundal height, with heart tones auscultated in the 135 to 140 range in the right lower quadrant. SKIN: No significant lesions noted. Warm and dry. EXTREMITIES: No cyanosis, clubbing, or edema. Deep tendon reflexes are 2+ bilaterally. NEUROLOGIC/PSYCHIATRIC: She is oriented to person, time, and place, with normal mood and affect, and grossly intact neurologic exam. PELVIC: External genitalia are clean and without lesions. The vagina is clean, well rugated, and well supported. The cervix is closed to exam. Uterus is soft and nontender at 38 cm fundal height. Adnexa not palpable due to uterine enlargement. Anus and perineum appear normal. RECTAL: Deferred as noncontributory. LABORATORY TESTING: Blood type A positive, antibody screen negative. Pap smear normal in 10/2019. Urine culture negative. HIV and syphilis testing negative in the first and third trimesters. Hepatitis B surface antigen and hepatitis C antibodies are negative. Rubella is immune. Hemoglobin A1c is normal at 4.7. Gonorrhea, chlamydia, and group B strep are negative. Ferritin level is low at 6. Third trimester blood count is anemic with hemoglobin of 10.9 and hematocrit of 31.4, platelets are 221,000, 1-hour GTT is normal at 133. NIPT is negative and female gender. Hemoglobin electrophoresis is normal. AFP is negative. Gene carrier screening for cystic fibrosis, spinal muscular atrophy, and fragile X all negative. TSH is normal. IMPRESSION: 1. Intrauterine at 39 weeks 2 days gestation. 2. Prior section x3. 3. History of genital herpes, no current outbreak. 4. Iron deficiency anemia complicating . 5. Multiparity. 6. Encounter for permanent bilateral tubal sterilization. PLAN: Ms. Antelmo Viera is admitted for repeat section and bilateral tubal sterilization by planned modified Becki technique. We have discussed the procedures of section and bilateral tubal sterilization, and she is aware that there is a small risk of even after tubal sterilization that is approximately one-half of 1%, and if she does conceive again, there is about a 50% chance that it may be a tubal that could require surgical or medical treatment. We have discussed the surgical risks for section and tubal sterilization including but not limited to colon bleeding, blood transfusion with attendant risk of transfusion reaction and viral infections, injuries to adjacent internal organs including bowels, bladder, fallopian tubes, ovaries, major blood vessels, and urine tubes, possible infection of the abdominal or uterine incision, possible hysterectomy to control life-threatening hemorrhage, possible postoperative deep blood clots in the legs or lungs, and anesthetic risks. Epidural anesthesia is planned as the safest for delivery. And the most common side effect is a spinal headache. We have discussed postoperative expectations and reviewed postoperative instructions for home. All her questions have been answered to her satisfaction, and she gives informed consent for repeat section and bilateral tubal sterilization. Dictated By: Heather Serrano MD WT: HP:FLUI/STARLA/MAGALIS Conf#: [id number]/DID#: [id number] Authenticated by Heather Serrano MD On 06/23/2020 07:15:36 AM at 0715 Current : Admission EGA (weeks) 39 Admission EGA (days) 2 Allergies Coded Allergies: poppyseed oil (Mild, MUNOZ NAUSEA 02/26/18) No Known Drug Allergies (06/08/20) Diagnosis, Assessment Plan Diagnosis, Assessment Plan Problem List/A P: 1. 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 Previous delivery, antepartum condition or complication 3. 39 weeks gestation of 4. Single live 5. Multiparity 6. Encounter for female sterilization procedure Reason-sched C section: elective repeat Consultation(s): Consultation performed: anesthesia Reason for consultation: epidural Plan discussed with: patient, spouse/partner, nurse at 1104 RPT #:[id number] END OF REPORT [facility] 2020-06-23 10:39:00 [facility] ([facility]) OB Delivery Note REPORT#:[id number] REPORT STATUS: Signed DATE:06/23/20 TIME: 1039 PATIENT: ANTELMO VIERA UNIT #: [id number] ROOM/BED: LDR12-A : 93 AGE: 24 SEX: F ATTEND: Heather Serrano MD ADM AUTHOR: Heather Serrano MD * ALL edits or amendments must be made on the electronic/computer document * OB Delivery Pre-delivery GBS status: GBS status: negative [place] evaluation at delivery: NRP certified personnel, team ( desaturation. O2 need) Admission EGA: [...] clamp delay Delivery section indication: elective repeat (x 4), Patient requests permanent tubal sterilization Priority: scheduled : : contraindicated Antibiotic prior to incision: Ancef 2 grams IV preop )(SCDs applied activated: Yes Uterine incision: low transverse Uterine scar: intact Consent: indication discussed, questions answered, pt consent to op delivery Mother's condition: mother stable Infant's condition: to NICU Operative Note-Full )(Start date: 06/23/20 )(Start time: 930 (Delivery at 942) )(Pre-procedure diagnosis: Intrauterine 39 weeks 2days Prior section x 3 Multiparity, patient requests permanent tubal sterilization Encounter for female sterilization )(Post-procedure diagnosis: same as pre-procedure dx )(Procedures performed: Repeat low cervical transverse section Modified [place] bilateral tubal sterilization )(Technique/Procedure: After appropriate preoperative hydration, and heart rate monitoring with reactive tracing noted, the patient is taken to the operating room and placed in the sitting position. An epidural anesthetic is placed to the appropriate surgical level. The patient is placed in the supine position with a left lateral tilt. heart tones are again auscultated and found to be in the baseline range. A Tomas catheter is placed under sterile conditions. The abdomen is then prepped and draped in the usual sterile fashion. "Time Out" procedure is performed and agreed upon. The skin knife is used to make a Pfannenstiel skin incision 2 fingerbreadths above the pubic symphysis. The subcutaneous tissue is divided the length of the incision with the deep knife. The fascia is scored with the Bovie transversely and then nicked transversely at the midline to open both layers. The fascial dissection is extended bilaterally in a curvilinear fashion with the Bovie cautery. The superior fascia is grasped with Oschner clamps, and is dissected from the underlying rectus muscle with cautery and blunt dissection for adequate exposure. Some omentum is found adherent to the top of the rectus muscle in the midline, and is carefully dissected off the muscle with cautery. The piece of omentum is traced back to its origin where it appears to be herniated through the anterior parietal peritoneum superiorly. After dissection, this excess omentum (5x5 cm) is clamped and excised, and the pedicle is tied with 2-0 Vicryl suture with good hemostasis. The rectus muscle is bluntly at the midline aponeurosis. The peritoneum is encountered, tented and entered with blunt finger dissection, then extended longitudinally with cautery dissection for adequate exposure. The lower uterine segment is found to be well developed. The vesicouterine peritoneum is incised transversely, and the bladder flap is gently and bluntly dissected away from the lower uterine segment, and further retracted with the DeLee retractor. A scoring low cervical transverse uterine incision is made with the knife, and this incision is deepened at the midpoint to the level of the membranes. The incision is extended in a low cervical transverse fashion with blunt finger dissection in a cephalald/caudad manner, to avoid lateral uterine vessel laceration. Membranes are ruptures with return of clear amniotic fluid. The vertex is encountered in the occiput transverse position. The vertex is delivered through the uterine incision with mild fundal pressure by the assistant brand manager. The shoulders and body next follow and the baby is atraumatically delivered, head down position, onto the mother s legs. The oropharynx and nares are well-suctioned with the bulb syringe. The cord is clamped and cut after a 45 second cord clamp delay. The vigorous and viable female infant has good cry, color, tone, grimace and heart rate shortly after delivery and Apgars are assigned as 8 at 1 minute, and 8 at 5 minutes. The baby is found to weigh 7#2oz/3220 gm. The baby is immediately shown to the parents and then handed off to the baby nurse in attendance for further evaluation and care. Cord blood is obtained. At the parent s request, the remainder of the cord blood is needle-extracted for donation to the [facility]. The placenta is then delivered spontaneously, and found to be intact with a 3 vessel cord. Baby then had some grunting and oxygen desturations, requiring blow by oxygen and Team was called, and baby was assessed and transferred to NICU with Dad in attendance. The uterus is exteriorized and wrapped in a moist lap sponge. The uterus/ fallopian tubes and ovaries all appear normal. The uterine incision is repaired in 2 layers: the first layer is repaired with a running locked suture of 0- Vicryl, and the second layer is imbricated with a suture of 2-0 Vicryl. Hemostasis is good, and good tone has returned to the uterine fundus. Bilateral tubal sterilization in a modified [place] fashion is then performed, first on the right, then on the left. On each side, the mid ampullary segment of the tube is grasped and elevated with a Javy clamp. A defect is made in the underlying mesosalpinx with the cautery, and 2 free ties of 0-plain gut are passed through the defect. The elevated knuckle of tube is ligated proximally and distally, the knuckle of tube is excised, and the tubal pedicles are cauterized. The same procedure is performed on both tubes. Excised tubal segments are sent to Pathology. There is good hemostasis in the tubal ligation site after the procedure. The uterus is replaced into the normal pelvic position. The lateral colic gutters are well irrigated. The anterior parietal peritoneum is closed with a running suture of 2-0 Vicryl from apex to apex. The subfascial plane is irrigated and hemostasis is obtained with the cautery. The fascia is closed with a running suture of 0-PDS, beginning at either apex, and meeting in the midline. The subcutaneous tissue is irrigated, and this layer is closed with a subcutaneous suture of 2-0 Vicryl, followed by a subdermal suture of 2-0 Vicryl, to bring the skin edges closer together. The final skin layer is closely reapproximated with a subcuticular suture of 3-0 Vicryl, followed by a sterile Dermabond dressing. The patient has tolerated the procedure well. Her is with her at delivery and both have had a chance to garzon with the baby. Sponge and needle counts are reportedly correct x 2 at the close of the case. Instrument count is reportedly correct as well. The radiofrequency pad scan for retained sponges is negative. Mother is transferred to the PACU in good condition, and baby is transported with Dad to the NICU, both in stable conditions )(Primary Surgeon: Hetaher Serrano MD )(Automobile Body Repair Chief(s): MARGOT Barber Anesthesiologist: Dr. Cate Jara )(Anesthesia: combined spinal/epi Indications: anesthesia )(Operative findings: Some extrusion of omentum on top of the rectus muscle, apparently heriated through peritoneum. This omentum was adherent to muscle layer. Omentum was released by adhesiolysis, trimmed off and pedicle tied, and excess omentum was discarded. Normal uterus, bilateral fallopian tubes and bilateral ovaries )(Complications: none )( Estimated blood loss (ml): 600 (per MD) )(Specimens removed/altered: Bilateral tubal segments Drain(s)/tube(s): Tomas to gravity Fluids: Crystalloid 1800 ml Urine output: 150 ml clear Disposition: PACU, stable Counts: Sponge count: correct Instrument count: correct Needle count: correct Wound class: clean-contaminated Blood Loss/Details Blood loss at delivery: <1000 ml, no more than expected EBL at delivery (ml's): 600 (per surgeon ) at 1119 [facility] #:[id number] END OF REPORT [facility] 2020-06-21 16:09:00 [id number] [facility] [place] [id number] PATIENT NAME: ANTELMO VIERA ADMIT DATE: ACCOUNT NO: [id number] ROOM NO: AGE: 24 SEX: F ADMITTING PHYSICIAN: Heather Serrano MD ATTENDING PHYSICIAN: Heather Serrano MD ADMISSION DATE: 06/23/2020 ADMITTING DIAGNOSES: 1. Intrauterine at 39 weeks 2 days gestation. 2. Prior section x3. 3. History of genital herpes, no current outbreak. 4. Iron deficiency anemia complicating . 5. Multiparity. 6. Encounter for permanent bilateral tubal sterilization. HISTORY OF PRESENT ILLNESS: Antelmo Viera is a 24-year-old 7, para 3, AB 3 lady, last menstrual period 09/22/2019, LAINEY 06/28/2020, estimated gestational age on admission is 39 weeks and 2 days. She has had 3 prior section deliveries, and we planned repeat section as is contraindicated at this point. She has also completed her family and requests permanent bilateral tubal sterilization at the time of section. She has a history of genital herpes and had an outbreak around 36 weeks that was treated with Valtrex, and she continues prophylactic daily Valtrex since that time without any additional outbreaks. Her course has been fairly normal. She did have a fall in the bathtub on 05/28/2020 and had a visit in the OB ED. She had some mild low back pain after that, and evaluation revealed normal fetus and reactive external monitoring. She did not hit her stomach or uterus. She has had several yeast infections during the treated with terconazole successfully. She has also had a very irritable uterus since about 35 weeks of gestation, but these have not been progressive, and she has been seen in the maternal assessment center a few times, and labor has been ruled out. ALLERGIES: NO KNOWN DRUG ALLERGIES. MEDICATIONS: vitamins and iron. PAST SURGICAL HISTORY: 1. Primary low cervical transverse section at 38 weeks on 07/04/2013. 2. Repeat section at 39 weeks 2 days on 02/17/2015. 3. Repeat low cervical transverse section at 39.1 weeks on 02/16/2018. ILLNESSES: Chickenpox as a child, history of genital herpes type 2 diagnosed by viral culture and lesions in 08/2016. MAJOR INJURIES: None. SOCIAL HISTORY: She is single. She is a nonsmoker. She denies drug or alcohol use. 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 PATIENT NAME: ANTELMO VIERA OBSTETRIC AND GYNECOLOGIC HISTORY: Menarche at age 12 with a 28-day interval. She has a history of chlamydia in 2012, history of HPV in 2016, and history of genital herpes diagnosed in 2015. She has a history of 3 spontaneous first trimester miscarriages in 08/2012, 08/2019, and 06/2019. FAMILY HISTORY: Mother with type 2 diabetes, sister with hypertension, and mother with breast cancer. REVIEW OF SYSTEMS: Negative x10 point review of systems except for irritable uterus with frequent Avery James contractions and the expected musculoskeletal aches and discomforts of late . PHYSICAL EXAMINATION: GENERAL: She is a well-developed and well-nourished female. VITAL SIGNS: Blood pressure is 105/67. Weight is 143.2, pre weight is 114 pounds. Height 5 feet 2 inches. HEENT: Normocephalic and atraumatic. NECK: Supple. No thyromegaly or lymphadenopathy. CHEST: Clear to auscultation, with equal and bilateral breath sounds. HEART: Regular rate and rhythm, without murmurs or gallops. BREASTS: Deferred as noncontributory. ABDOMEN: Soft, nontender. Good bowel sounds. No hepatosplenomegaly. No costovertebral angle tenderness. No evidence of hernia. The uterus is soft and enlarged to 38 cm fundal height, with heart tones auscultated in the 135 to 140 range in the right lower quadrant. SKIN: No significant lesions noted. Warm and dry. EXTREMITIES: No cyanosis, clubbing, or edema. Deep tendon reflexes are 2+ bilaterally. NEUROLOGIC/PSYCHIATRIC: She is oriented to person, time, and place, with normal mood and affect, and grossly intact neurologic exam. PELVIC: External genitalia are clean and without lesions. The vagina is clean, well rugated, and well supported. The cervix is closed to exam. Uterus is soft and nontender at 38 cm fundal height. Adnexa not palpable due to uterine enlargement. Anus and perineum appear normal. RECTAL: Deferred as noncontributory. LABORATORY TESTING: Blood type A positive, antibody screen negative. Pap smear normal in 10/2019. Urine culture negative. HIV and syphilis testing negative in the first and third trimesters. Hepatitis B surface antigen and hepatitis C antibodies are negative. Rubella is immune. Hemoglobin A1c is normal at 4.7. Gonorrhea, chlamydia, and group B strep are negative. Ferritin level is low at 6. Third trimester blood count is anemic with hemoglobin of 10.9 and hematocrit of 31.4, platelets are 221,000, 1-hour GTT is normal at 133. NIPT is negative and female gender. Hemoglobin electrophoresis is normal. AFP is negative. Gene carrier screening for cystic fibrosis, spinal muscular atrophy, and fragile X all negative. TSH is normal. IMPRESSION: 1. Intrauterine at 39 weeks 2 days gestation. 2. Prior section x3. 3. History of genital herpes, no current outbreak. 4. Iron deficiency anemia complicating . 5. Multiparity. 6. Encounter for permanent bilateral tubal sterilization. PATIENT NAME: ANTELMO VIERA PLAN: Ms. Antelmo Viera is admitted for repeat section and bilateral tubal sterilization by planned modified Becki technique. We have discussed the procedures of section and bilateral tubal sterilization, and she is aware that there is a small risk of even after tubal sterilization that is approximately one-half of 1%, and if she does conceive again, there is about a 50% chance that it may be a tubal that could require surgical or medical treatment. We have discussed the surgical risks for section and tubal sterilization including but not limited to colon bleeding, blood transfusion with attendant risk of transfusion reaction and viral infections, injuries to adjacent internal organs including bowels, bladder, fallopian tubes, ovaries, major blood vessels, and urine tubes, possible infection of the abdominal or uterine incision, possible hysterectomy to control life-threatening hemorrhage, possible postoperative deep blood clots in the legs or lungs, and anesthetic risks. Epidural anesthesia is planned as the safest for delivery. And the most common side effect is a spinal headache. We have discussed postoperative expectations and reviewed postoperative instructions for home. All her questions have been answered to her satisfaction, and she gives informed consent for repeat section and bilateral tubal sterilization. Dictated By: Heather Serrano MD WT: HP:JOE/STARLA/MAGALIS Conf#: [id number]/DID#: [id number] Authenticated by Heather Serrano MD On 06/23/2020 07:15:36 AM at 0715 PATIENT NAME: ANTELMO VIERA [facility] 2020-06-11 22:42:00 [id number] [facility] [place] [address] PATIENT NAME: ANTELMO VIERA ADMIT DATE: 06/08/20 ACCOUNT NO: [id number] ROOM NO: AGE: 24 SEX: F ADMITTING PHYSICIAN: ATTENDING PHYSICIAN: Heather Serrano MD TRIAGE EVALUATION: 06/08/2020 For evaluation in OB ED on 06/08/2020 by Lillie Cordero MD, triage hospitalist per request of Dr. Serrano. HISTORY OF PRESENT ILLNESS: The patient is a 24-year-old G5, P3-0-1-3, with unsure last menstrual period, and estimated date of confinement 06/28/2020. She presented at 37 and 1/7th weeks, complaining of decreased movement beginning earlier in the day and now more concerning to the patient since approximately 5 p.m. She presented at 08:30 p.m. She also reported mild contractions 3/10 every 15 to 20 minutes. This has been her baseline Hustle James contraction pattern for the last few months. She denied vaginal bleeding or leakage of fluid. She denied headache, vision changes, or other preeclampsia symptoms. She denied fever, chills, nausea, vomiting, diarrhea, constipation, or dysuria. She denied cough, sore throat, shortness of breath, loss of taste or smell, fever, diarrhea, or other COVID symptoms. She has not been tested for COVID. She reports she has been observing stay home and social distancing recommendations. Her care began with Dr. Serrano at approximately 8 weeks' gestation. Her next visit is scheduled for June 12. The has been remarkable for the Hustle James contractions for the last 2 months, but no evidence of labor. She also reports recurrent yeast infections and bacterial vaginosis infection, both previously treated. She otherwise denies complications and reports all labs and ultrasounds normal to her knowledge. No records are available at the time of evaluation. She was seen in the OB ED in mid May following a fall at home. No evidence of labor or abruption at that time and the patient was discharged. PAST MEDICAL HISTORY: Negative. PAST SURGICAL HISTORY: section x3. ALLERGIES: NO KNOWN DRUG ALLERGIES. MEDICATIONS: vitamins, iron 1 to 2 times per week, and valacyclovir daily for prophylaxis of herpes. OBSTETRICAL HISTORY: In 2011, first trimester spontaneous , not requiring D and C. In 2013, full term delivery for nonreassuring strip, delivered of a male weighing 6 pounds 12 ounces, no complications in the , otherwise. In 2014, full term repeat without trial of labor, delivered of a female infant weighing 7 pounds 9 ounces, also without PATIENT NAME: ANTELMO VIERA complications. In 2018, full term section for nonreassuring status, delivered of a male weighing 7 pounds 6 ounces, no other complications in the . GYNECOLOGIC HISTORY: Menarche at age 12 with regular monthly cycles lasting 5 days, moderate in amount with minimal cramping. The patient reports history of genital herpes diagnosed initially in 2016 with at least one outbreak during the current . She has been using daily Valtrex for prophylaxis since the recent resolution of outbreak. SOCIAL HISTORY: The patient denies tobacco or illicit drug use. She reports rare prepregnancy alcohol use. She lives with her spouse, a 28-year-old healthy male and her 3 children. She does not work outside the home or attend school. FAMILY HISTORY: Mother by suicide. She also had hypertension and history of breast cancer diagnosed at age 22 (the patient has been encouraged to discuss her mother's early diagnosis of breast cancer and after the , will need to begin mammograms). Father unknown health history. Maternal grandmother and grandfather both from unknown causes. No information on paternal grandparents. The patient was adopted out and has no information on her father or his family. The patient has one sister, one brother. Sister has bipolar disorder and brother ADHD and anemia. She also has a half-sister with hypertension and a half-brother, with no known health problems. Her 3 children are reported as healthy. The patient denied history of mental retardation or defects in her family or her spouse's family. REVIEW OF SYSTEMS: A 10-point review of systems is negative except as stated above. PHYSICAL EXAMINATION: GENERAL: The patient is a well-nourished, well-developed white female, lying on triage stretcher in OB ED. VITAL SIGNS: Height 5 feet 3 inches, weight prior to the 114 pounds and at most recent visit to clinic 140 pounds. Blood pressure 109/66, pulse 93, respirations 18, and temperature 98.6. HEAD AND NECK: Within normal limits without lymphadenopathy or thyromegaly. CHEST: Clear to auscultation bilaterally. HEART: With regular rate and rhythm. BREASTS: Deferred. ABDOMEN: Soft, nontender, gravid with a fundal height of 38 cm. PELVIC: Closed, midposition, intact, and -3. No blood noted on exam glove. EXTREMITIES: Without edema. Bilateral patellar reflexes, 2+. NEUROLOGIC: Nonfocal. The patient is awake, alert, and oriented x3. NST is category 1 with baseline heart tones in the 120s with multiple 15 x 15 accelerations, no decelerations, and contractions every 15 to 30 minutes. BPP showed a single intrauterine , cephalic presentation, ESTELLA of 12.7 cm. heart rate 144 beats per minute, posterior placenta without previa, grade II, cervix of 3.7 cm, and a biophysical profile 04/19. LABORATORY DATA: No labs were indicated. ASSESSMENT AND PLAN: This is a 24-year-old G5, P3-0-1-3, at 37 and 1/7th weeks, complaining of decreased movement, and also Hustle James contractions, but at her baseline for the last 2 to 3 months. She has a history of 3 prior PATIENT NAME: ANTELMO VIERA C-sections, a history of herpes-now on daily prophylaxis without lesions or prodrome. She is discharged home in stable condition with reassuring status, 10 out of 10 on the biophysical profile with category 1 NST. She is given labor precautions and is to return for vaginal bleeding, leakage of fluid, decreased movements, or increased force and frequency of contractions. She is to follow up on June 12 as scheduled. She is to drink greater than 100 ounces of water daily and eat frequent small meals. She is to perform kick counts nightly and call or return for less than 10 kicks in 2 hours. She is to continue her Valtrex daily and to call for further lesions or prodrome. Dictated By: Lillie Cordero MD WT: LUDY:JOE/SAHIL/MAGALIS Conf#: [id number]/DID#: [id number] Authenticated and Edited by Lillie Cordero MD On 07/01/20 8:36:54 AM at 0842 PATIENT NAME: ANTELMO VIERA [facility] 2020-05-28 15:39:00 [id number] [facility] [address], [place] [address] PATIENT NAME: ANTELMO VIERA ADMIT DATE: 05/28/20 ACCOUNT NO: [id number] ROOM NO: AGE: 24 SEX: F ADMITTING PHYSICIAN: ATTENDING PHYSICIAN: Jerald Mccollum MD TRIAGE EVALUATION: 05/28/2020 Patient seen for evaluation in OB ED on 05/28/2020, by Lillie Cordero MD, triage hospitalist, per request of Dr. Serrano. HISTORY OF PRESENT ILLNESS: The patient is a 24-year-old G5, P3-0-1-3, with unsure last menstrual period, and estimated date of confinement 06/28/2020. She presented to the main Emergency Room at 35-4/7th weeks complaining of a fall at 8:00 p.m. on the . She was cleared in the main ER and transferred to OB ED for further evaluation. Dr. Serrano requested 2 hours of monitoring, but no labs. The patient is known to be blood type A positive. She denied vaginal bleeding or leakage of fluid. She reported increase in frequency of contractions to approximately every 8 minutes for a total of 3 hours after the fall, but then returned to her baseline of Avery James contractions every 20 minutes. She states the contractions are every 20 minutes currently at the time of evaluation. She states she slipped in the shower. She did not hit her head. She did hit her back, but not her abdomen. She states in addition to the lower back and buttocks she also hit her left leg and right arm. She denied feeling dizzy or having a syncopal episode prior to the slip and fall. She currently denies headache, vision changes, or other preeclampsia symptoms. She denies fever, chills, nausea, vomiting, diarrhea, constipation, or dysuria. She denies COVID symptoms. Her care has been with Dr. Serrano beginning at approximately 8 weeks' gestation. Her next visit is scheduled for the . The has been remarkable for the Hustle James contractions, but no prior evidence of labor. She also reports pelvic pain and a history of recurrent yeast infections and is currently being treated for bacterial vaginosis. Otherwise, she denies complications and reports all labs and ultrasounds normal to her knowledge. No records are available at the time of evaluation. PAST MEDICAL HISTORY: Negative. PAST SURGICAL HISTORY: section x3. ALLERGIES: NO KNOWN DRUG ALLERGIES. MEDICATIONS: vitamins, iron every 1 to 2 days and Flagyl day #5 of 7 on a script for bacterial vaginosis. ALLERGIES: NO KNOWN DRUG ALLERGIES. OBSTETRICAL HISTORY: In 2011, first trimester spontaneous , not PATIENT NAME: ANTELMO VIERA requiring D and C. In 2012, full term section for nonreassuring strip, delivered of a male weighing 6 pounds 12 ounces, no complications in the . In 2014, full term repeat without trial of labor, delivered of a female weighing 7 pounds 8 ounces, also without complications. In 2018, full term section for nonreassuring status, delivered of a male infant weighing 7 pounds 6 ounces. No earlier complications in the . GYNECOLOGIC HISTORY: Menarche at age 12 with regular monthly cycles lasting 5 days, moderate in amount with minimal cramping. The patient reports history of genital herpes, first in 2015 with a current lesion noted 2 days prior. She ran out of medications earlier and has not used anything with the current outbreak. She was to begin daily prophylaxis with her visit on the . She did not call to request medications be sent earlier. SOCIAL HISTORY: The patient denies tobacco or illicit drug use. She reports rare prepregnancy alcohol use. She lives with her spouse, a 27-year-old healthy male, and her 3 children. She does not work outside the home or attend school. FAMILY HISTORY: Mother with suicide. She also had hypertension and a history of breast cancer diagnosed at age 22 (the patient was encouraged to discuss her mother's early diagnosis of breast cancer and after the will need to begin mammogram). Father unknown health history. Maternal grandmother and grandfather both from unknown causes. No information on paternal grandparents. The patient was adopted out and has no information on her father or his family. The patient has 1 sister, 1 brother. The sister has bipolar disorder. The brother ADHD and anemia. She also has a half-sister with hypertension and a half-brother with no known health problems. Her 3 children are reported as healthy. The patient denies history of mental retardation or defects in her family or her spouse's family. REVIEW OF SYSTEMS: A 10-point review of systems is negative except as stated above. PHYSICAL EXAMINATION: GENERAL: The patient is a well-nourished, well-developed white female, lying on triage stretcher in OB ED. VITAL SIGNS: Height 5 feet 3 inches, weight prior to the 114 pounds and most recent weight 139-1/2 pounds. Blood pressure 109/63, pulse 107, respirations 18, and temperature 98.2. HEAD AND NECK: Within normal limits without lymphadenopathy or thyromegaly. CHEST: Clear to auscultation bilaterally. HEART: With regular rate and rhythm. BREASTS: Deferred. ABDOMEN: Soft, nontender, gravid with a fundal height of 35 cm. BACK: No evidence of bruising, lacerations or contusions. PELVIC: Long, closed, posterior. No blood noted on the glove. Initially pelvic exam was not anticipated; however, after evaluation, the patient reported that she was feeling cramping every few minutes, so the exam was performed. EXTREMITIES: Mild pedal edema. DTRs 2+ bilaterally. NEUROLOGIC: Nonfocal. The patient is awake, alert, and oriented x3. NST is category 1 with baseline heart tones in the 130s to 140s range, occasional 15 x 15 accelerations, no decelerations, and at the time of PATIENT NAME: ANTELMO VIERA evaluation-no contractions. A short time later, she was noted to have uterine irritability. She was invited to sherrie what she felt were contractions. She was marking every 2 to 3 minutes; however, no contractions were noted at those times. With readjustment of monitor, she was seen to have 2 contractions, which were 16 minutes apart. ASSESSMENT AND PLAN: 24 year old at 35 4/7 weeks, following a fall. work up without evidence of abruption or labor. I spoke to Dr. Serrano. She stated that the patient has had contractions frequently in the recent weeks, but has never had cervical change. She wished to continue with the plan to discharge the patient home for followup on the following day. She is to call or return for vaginal bleeding, leakage of fluid, decreased movements on kick counts or otherwise or for contractions with increasing force and frequency. She is to use Tylenol and/or heat for the discomfort in her back and extremities. She is to drink greater than 100 ounces of water daily and eat frequent small meals. She is to continue her Flagyl and her other usual medications. I discussed the patient's herpes lesions-Dr. Serrano did not realize that the patient was out of medications nor did she know the patient had a lesion. She requested the patient be given a script at discharge for Valtrex to use twice daily for 3 days and to follow up with Dr. Serrano as scheduled tomorrow. She is given a kick count sheet and instructions both verbal, as well as written instructions for kick counts. She is to call immediately for less than 10 kicks in 2 hours, or for other concerns including vaginal bleeding, leakage of fluid, decreased movement, contractions with increased force and frequency. The patient is also to call if pharmacy does not supply Valtrex for nonformulary or other reasons. She is not to wait until her appointment tomorrow to notify Dr. Serrano that she did not start the antiviral. Dictated By: Lillie Cordero MD WT: HP:JOE/SAHIL/MAGALIS Conf#: [id number]/DID#: [id number] Authenticated and Edited by Lillie Cordero MD On 06/08/20 9:37:49 AM at 1544 PATIENT NAME: ANTELMO VIERA [facility] 2020-05-28 12:00:00 [facility] [place] [facility] EMERGENCY PROVIDER REPORT REPORT#:[id number] REPORT STATUS: Signed DATE:05/28/20 TIME: 1200 PATIENT: ANTELMO VIERA UNIT #: [id number] ROOM/BED: AGE: 24 SEX: F PCP PHYS: Heather Serrano MD SERVICE AUTHOR: Jerald Mccollum MD * ALL edits or amendments must be made on the electronic/computer document * HPI-General Illness General Initial Greet Date/Time 05/28/20 1144 Presentation Chief Complaint Abdominal pain Context Additional Context 24 years old patient 35 weeks yesterday slipt and fell onto her back now having intermittent contractions every 20 minutes, reports active movements, no vaginal bleeding, no leakage of fluid, no any other traumas or complaints. Review of Systems ROS Statements All systems rev neg except as marked. Free Text ROS Notes Free Text ROS Notes CONSTITUTIONAL: Normal; negative for fever, weight change, fatigue, or aching. HEENT: Eyes normal; negative for, irritation, or visual field defects. Ears normal; Negative for pain . Nose normal; Negative for runny nose, sinus problems , or nosebleeds. Mouth normal; Negative for dental problems,. Throat normal; Negative for hoarseness, difficulty swallowing, or sore throat. CARDIOVASCULAR: Normal; Negative for chest pain or, high blood pressure, orthopnea, PULMONARY: Normal; Negative for cough, sputum, shortness of breath or wheezing, GENITOURINARY: Negative for incontinence, UTI, dysuria, hematuria, vaginal discharge, abnormal bleeding. SKIN: Normal; Negative for rashes. MUSCULOSKELETAL: Normal; Negative for back pain, joint pain. NEUROLOGIC: Normal; Negative for blackouts, headaches, seizures or dizziness. PSYCHIATRIC: Normal; Negative for anxiety, depression, or phobias. ENDOCRINE: Normal; Negative for diabetes, thyroid.HEMATOLOGIC/LYMPHATIC: Normal; Negative for anemia, swollen glands, or blood disorders. IMMUNOLOGIC: Negative; Negative for steroids, chemotherapy, or cancer. VASCULAR: Normal; Negative for varicose veins, blood clots, or leg ulcers. Past Medical History - Adult Stated Complaint SLIPPED IN SHOWER, 35WKS 4DYS Allergies Coded Allergies: poppyseed oil (Mild, MUNOZ NAUSEA 02/26/18) Home Medications Active Scripts HYDROcodone/APAP (NORCO 10/325) 1-2 TAB PO Q6H PRN PRN MODERATE POSTOP PAIN HYDROcodone/APAP (NORCO 10/325) 1-2 TAB PO Q6H PRN PRN MODERATE POSTOP PAIN #40 TAB Prov: 02/28/18 IBUPROFEN (MOTRIN) 600 MG PO Q6H PRN PRN PAIN SCALE 1-3 (USE 1ST) IBUPROFEN (MOTRIN) 600 MG PO Q6H PRN PRN PAIN SCALE 1-3 (USE 1ST) #60 TAB Ref 1 Prov: 02/28/18 Reported Medications PNV/FE FUM/FA ( MULTIVITAMIN) 1 TAB PO DAILY {FERROUS FUMARATE} ({FERROCITE}) 324 MG PO DAILY Review of Nursing Notes Rev avail, and agree Physical Exam Vital Signs Vital Signs First Documented: Result Date Time Pulse Ox 99 / 1155 B/P 120/65 /16 1155 B/P Mean 83 / 1155 O2 Delivery Room air 05/28 1155 Temp 36.8 05/28 1155 Pulse 112 / 1155 Resp 17 05/28 1155 Last Documented: Result Date Time Pulse Ox 99 05/28 1155 B/P 120/65 / 1155 B/P Mean 83 / 1155 O2 Delivery Room air 05/28 1155 Temp 36.8 05/28 1155 Pulse 112 / 1155 Resp 17 05/28 1155 Review of Vital Signs Reviewed, Vital signs normal Basic Physical Exam Basic PE GEN: Well appearing/NAD, HEAD: Atraumatic/NC, ENT: Membranes moist, NECK: Supple, CV: Reg rate rhythm, EXT: No gross abnormality, SKIN: No rashes, warm/dry Physical Exam Abdomen/GI Text/Dict Notes fhr 153 Patient Discharge Departure Vital Signs/Condition Vital Signs First Documented: Result Date Time Pulse Ox 99 16 1155 B/P 120/65 /16 1155 B/P Mean 83 /16 1155 O2 Delivery Room air 05/28 1155 Temp 36.8 05/28 1155 Pulse 112 / 1155 Resp 17 05/28 1155 Last Documented: Result Date Time Pulse Ox 99 05/28 1155 B/P 120/65 /16 1155 B/P Mean 83 / 1155 O2 Delivery Room air 05/28 1155 Temp 36.8 05/28 1155 Pulse 112 05/28 1155 Resp 17 05/28 1155 All vital signs available at the time of this entry have been reviewed. Condition Stable Clinical Impression Clinical Impression Primary Impression: Cramping affecting , antepartum Time of Impression 1200 Disposition Decision Discharge )( Discharged to Home mac unit )( Time 1200 )( Date 05/28/20 Discharge/Care Plan Referrals Heather Serrano MD (PCP/Family) at 1436 RPT #:[id number] END OF REPORT [facility]
[2024-10-28 14:26] LABS: SARS-CoV-2 Antigen CONTROL BLUE LINE VIS/BG OK; SARS-CoV-2 Antigen Rapid Res Negative (Negative)
--- NOTE | 2024-10-28 14:28 | ER ---
Nurse's Notes [facility] Name: Antelmo Bardales Age: 29 yrs Sex: Female : 1995 Arrival Date: 10/28/2024 Time: 11:20 Bed IW1 Private MD: Diagnosis: Influenza due to identified novel influenza A virus Presentation: 10/28 12:29 Chief complaint: Patient states: cough, congestion, headache, sore throat, fever body hb aches since Tuesday but woke up worse today. Rash to torso for a month. Took aspirin this morning. Coronavirus screen: Vaccine status: Patient reports receiving the 2nd dose of the covid vaccine. Ebola Screen: No symptoms or risks identified at this time. Initial Sepsis Screen: Does the patient meet any 2 criteria? HR > 90 bpm. Risk Assessment: Do you want to hurt yourself or someone else? Patient reports no desire to harm self or others. Onset of symptoms was October 24, 2024. 12:29 Method Of Arrival: Ambulatory hb 12:29 Acuity: MARK 4 hb Triage Assessment: 12:31 General: Appears ill, well groomed, well developed, well nourished, Behavior is calm, hb cooperative, appropriate for age, Reports chills for >3 days, fever for feeling ill for. Pain: Complains of pain in head Pain does not radiate. Pain currently is 5 out of 10 on a pain scale. Quality of pain is described as aching, Pain began 2-3 days ago. Is continuous. EENT: Reports nasal congestion nasal discharge. EENT: Reports pain when swallowing. Neuro: Level of Consciousness is awake, alert, obeys commands, Oriented to person, place, time, situation, Appropriate for age. Cardiovascular: Patient's skin is warm and dry. Respiratory: Reports cough that is persistent Airway is patent Respiratory effort is even, unlabored, Respiratory pattern is regular, symmetrical. GI: Reports anorexia, nausea, vomiting. : No signs and/or symptoms were reported regarding the genitourinary system. Derm: Skin is intact, is healthy with good turgor, Skin is pink, warm \T\ dry. Musculoskeletal: No signs and/or symptoms reported regarding the musculoskeletal system. 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 - Infectious Disease History:: Denies. - Social history:: Smoking status: Patient denies any tobacco usage or history of. Vital Signs: 12:29 BP 121 / 75; Pulse 99; Resp 17; Temp 98.4; Pulse Ox 99% ; Weight 50.8 kg; Height 5 ft. hb 3 in. ; Pain 5/10; 12:29 Body Mass Index 19.84 (50.80 kg, 160.02 cm) hb 12:29 Pain Scale: Adult hb ED Course: 11:24 Patient arrived in ED. ra3 11:24 Kary Cuadra FNP-C is [facility]. kb 11:24 Tom Salmeron MD is Attending Physician. kb 12:31 Triage completed. hb 12:31 Arm band placed on Patient placed in waiting room. hb 12:37 COVID swab sent to lab. Flu and/or RSV swab sent to lab. Strep swab sent to lab. hb Administered Medications: No medications were administered Outcome: 14:28 Discharge ordered by . kb 14:40 Patient left the ED. hb Signatures: Kary Cuadra FNP-C FNP-Ckb Baxter, Heather, RN RN Nova Petit ra3
--- NOTE | 2024-10-28 14:28 | EDPHYS ---
Physician Documentation [facility] Name: Antelmo Bardales Age: 29 yrs Sex: Female : 1995 Arrival Date: 10/28/2024 Time: 11:20 Bed IW1 Private MD: ED Physician Tom Salmeron HPI: 10/28 11:40 This 29 yrs old Female presents to ER via Unassigned with complaints of Flu Symptoms, kb Rash. 11:40 Patient is a 29-year-old female who presents for cough, congestion, body aches, fever, kb chills that started 5 days ago. Also reports rash to torso that started 1 month ago. Denies shortness of breath, chest pain. 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 - Infectious Disease History:: Denies. - Social history:: Smoking status: Patient denies any tobacco usage or history of. ROS: 11:41 Constitutional: As per HPI kb Exam: 11:41 Constitutional: This is a well developed, well nourished patient who is awake, alert, kb and in no acute distress. Head/Face: Normocephalic, atraumatic. ENT: Moist Mucous membranes Cardiovascular: Regular rate Respiratory: Respirations even and unlabored. No increased work of breathing. Talking in full sentences MS/ Extremity: Pulses equal, no cyanosis. Neurovascular intact. Full, normal range of motion. Neuro: Awake and alert, GCS 15, oriented to person, place, time, and situation. 11:41 ENT: Posterior pharynx: erythema, that is mild, Vital Signs: 12:29 BP 121 / 75; Pulse 99; Resp 17; Temp 98.4; Pulse Ox 99% ; Weight 50.8 kg; Height 5 ft. hb 3 in. ; Pain 5/10; 12:29 Body Mass Index 19.84 (50.80 kg, 160.02 cm) hb 12:29 Pain Scale: Adult hb MDM: 11:25 Medical Screening Exam initiated kb 14:27 Differential diagnosis: flu, covid, strep, uri. Data reviewed: vital signs, nurses kb notes. I considered the following discharge prescriptions or medication management in the emergency department I discussed and recommended Over The Counter medications, Antibiotics: At this time antibiotics are not recommended, Antivirals: At this time, antivirals are not recommended. Counseling: I had a detailed discussion with the patient and/or guardian regarding the historical points, exam findings, and any diagnostic results supporting the discharge/admit diagnosis, lab results, the need for outpatient follow up, a family practitioner, to return to the emergency department if symptoms worsen or persist or if there are any questions or concerns that arise at home. 10/28 11:25 Order name: Flu; Complete Time: 14:27 kb 10/28 11:25 Order name: Strep kb 10/28 11:25 Order name: SARS-COV-2 Antigen Rapid; Complete Time: 14:26 kb 10/28 14:29 Order name: Throat Culture EDMS Administered Medications: No medications were administered Disposition Summary: 10/28/24 14:28 Discharge Ordered Notes: Location: Home kb Condition: Stable kb Diagnosis - Influenza due to identified novel influenza A virus kb Followup: kb - With: Emergency Department - When: As needed - Reason: Worsening of condition Followup: kb - With: Private Physician - When: 2 - 3 days - Reason: Recheck today's complaints, Continuance of care, Re-evaluation by your physician Discharge Instructions: - Discharge Summary Sheet kb - Influenza, Adult, [id number] kb Forms: - Medication Reconciliation Form kb - Antibiotic Education kb - Prescription Opioid Use kb - Patient Portal Instructions kb - Leadership Thank You Letter kb - Work release form hb Signatures: Dispatcher [employer] Kary Diehl, KATJA-De HIGHTOWER-Nessa Brice, RN RN hb
[2024-10-28 14:48] VITALS: BP 121/75; TEMP 98.4; O2SAT 99
== END 2024-10-28 14:40 | disposition home or self-care (01) ==
LOC: ER 11:20
DX: J10.1 Influenza due to other identified influenza virus with other respiratory manifestations (principal); Z11.52 Encounter for screening for COVID-19
CPT/HCPCS: 36415; 87070; 87081; 87804; 87811; 99282